=== PATIENT | male | born 1940 | race Caucasian/White ===

== ENCOUNTER 2016-09-24 15:11 | Inpatient (IN) | payer MEDICARE ==
[~2016-09-24] VITALS: Ht 175.3 cm; Wt 65.3 kg
[2016-09-24 15:21] VITALS: BP 136/82; PULSE 76; RESP 14; O2SAT 98
--- NOTE | 2016-09-24 15:44 | ED.REPORT ---
HPI-General Illness Date of Service Sep 24, 2016 ED Provider: Fabian Hua MD The patient is a 75 year old male with an unknown history who was brought to the emergency department after he tried to go into someone else's home. It was reported that the patient drove to a house that was not his and entered the home. The patient states he went there because he was lost on a road and needed someone to help him. The patient has a box of his medications with him that include: lithium, clotrimazole, and tamsulosin. The patient states he falls all the time because he is not steady. He lives alone. It is difficult to obtain history from the patient due to his mental status. He is not oriented to place or time. He denies any past medical history and does not know why he takes lithium. He denies suicidal or homicidal ideation. He denies fevers or chills. History is extremely limited due to the patient's confusion. Nursing Notes Stated Complaint: CONFUSION/ MENTAL HEALTH EVAL. Chief Complaint: Psychiatric Complaint Nursing Notes Reviewed: Yes Allergies: Coded Allergies: hydrocodone (Verified Allergy, Unknown, 09/24/16) General Time Seen by MD: 15:36 Chief Complaint Altered mental status Hx Obtained From: Patient (very limited) Unable to Obtain Hx: Patient condition, Mental status Arrived By: Walk-in Sudden in Onset?: No Onset Occurred: Onset unknown Symptom Duration: Duration unknown Past Medical History Past Medical History Notes: Nathaniel (son): , Past Medical History None Social History Other Social History: Good social support Ambulatory Status Independent Unable to Obtain History Past medical history, Past surgical history, Family history, Smoking history, Social history, Occupation Review of Systems Unable to Obtain ROS Patient condition, Mental status Full Review of Systems Neurologic: Reports: Confusion Psychiatric: Reports: Change mental status Physical Exam Vital Signs Vital Signs Date Time Temp Pulse Resp B/P Pulse Ox O2 Delivery O2 Flow Rate FiO2 09/24/16 15:21 36.6 76 14 136/82 98 Initial VS: Reviewed Head / Eyes: Atraumatic, Normocephalic, PERRL ENT: Mucous membranes moist, Conjunctiva normal, No scleral icterus Neck: Supple, Non-tender, Full range of motion Respiratory: Breath sounds normal, Clear to auscultation, No respiratory distress Cardiovascular: Regular rate & rhythm, Heart sounds normal, Intact distal pulses Abdomen / GI: Soft, Non-tender, No guarding, No rebound, No distention Lymphatic: No lymphadenopathy Extremities: Vascular intact, Neuro intact, No swelling, No tenderness Skin: Warm, Dry, No cyanosis General/Constitutional: Awake Alertness: Positive: Confused, Disoriented No obvious signs of trauma. Mental Status: Positive: Confused, Disoriented to place, Disoriented to time No lateralizing symptoms. Interpretation & Diagnostics Lab Results Interpretation Result Diagram: 09/24/16 1609 09/24/16 1609 Test 09/24/16 16:09 09/24/16 16:47 White Blood Count 7.5th/mm3 (3.8-10.1) Red Blood Count 4.50mil/mm3 (4.40-5.80) Hemoglobin 15.1g/dL (13.8-17.2) Hematocrit 45.9% (41.0-50.0) Mean Corpuscular Volume 102.0fL (81-100) Mean Corpuscular Hemoglobin 33.6pg (27.0-35.0) Mean Corpuscular Hemoglobin Concent 32.9% (32.0-37.0) Red Cell Distribution Width 13.0% (12.3-15.4) Platelet Count 231bil/L (150-400) Neutrophils (%) (Auto) 62.7% (40-74) Lymphocytes (%) (Auto) 21.6% (14-46) Monocytes (%) (Auto) 9.4% (4-12) Eosinophils (%) (Auto) 5.3% (0-5) Basophils (%) (Auto) 0.9% (0-3) Sodium Level 140mEq/L (134-144) Potassium Level 3.8mEq/L (3.5-5.2) Chloride Level 104mEq/L (97-108) Carbon Dioxide Level 22mmol/L (18-29) Blood Urea Nitrogen 16mg/dL (8-27) Creatinine 1.41mg/dL (0.76-1.27) Estimat Glomerular Filtration Rate 52mL/min (>59) Glucose Level 112mg/dL (60-99) Calcium Level 10.8mg/dL (8.5-10.1) Magnesium Level 2.5mg/dL (1.6-2.6) Total Bilirubin 0.6mg/dL (0.0-1.2) Aspartate Amino Transf (AST/SGOT) 20U/L (0-50) Alanine Aminotransferase (ALT/SGPT) 15U/L (0-44) Alkaline Phosphatase 75U/L (25-160) Total Protein 7.1g/dL (6.4-8.4) Albumin 4.1g/dL (3.4-5.0) Salicylates Level < 3.0ug/mL (30-250) Acetaminophen Level < 15.0ug/mL Rx (10-25) [place] Level 0.9mEq/L (0.5-1.5) Alcohols < 10mg/dL (0-10) Lactic Acid Level 2.2mmol/L (0.4-2.0) ECG Interpretation ECG Interpretation: Sinus rhythm with a rate of 63 Normal axis Normal intervals No ST segment changes No T wave abnormalities No prior EKGs available for comparison Time: 16:09 Interpreted by: ED physician X-Ray Chest Interpretation Chest Xray Interpretation: IMPRESSION: No acute process. Dictated by: Sneha Aaron M.D. on 09/24/2016 at 17:06 Interpretation / Wet Read by: Interpret - Radiologist CT Head Interpretation IMPRESSION: No acute intracranial abnormality. Dictated by: Sneha Aaron M.D. on 09/24/2016 at 16:21 Study: Head CT no contrast Interpretation / Wet Read by: Interpret - Radiologist Re-Eval/Medical Decision Med Decision/Clinical Course The patient is a 75 year old male with an unknown history who was brought to the emergency department after he tried to go into someone else's home. It was reported that the patient drove to a house that was not his and entered the home. The patient states he went there because he was lost on a road and needed someone to help him. The patient has a box of his medications with him that include: lithium, clotrimazole, and tamsulosin. The patient states he falls all the time because he is not steady. He lives alone. It is difficult to obtain history from the patient due to his mental status. He is not oriented to place or time. He denies any past medical history and does not know why he takes lithium. He denies suicidal or homicidal ideation. He denies fevers or chills. History is extremely limited due to the patient's confusion. Upon arrival the patient is afebrile, hemodynamically stable with examination as above. The patient states that he was in [facility] recently so 3 hours of attempts to obtain records from [place] were unsuccessful. LABS: CBC unremarkable except for elevated MCV of 102 BUN 16, creatinine 1.41, no sig electrolyte abnormalities, LFTs WNL [place] within therapeutic range, Tylenol, salicylates, and alcohol negative. Head CT negative CXR: Obtained, reviewed and interpreted by myself shows no evidence of infiltrates, effusions or pneumothorax. Cardiac and mediastinal silhouette normal. No bony or soft tissue abnormalities. EKG was obtained and interpreted by myself as documented above. The patient has significant alteration of mental status. We considered several causes of the alteration of mental status. We considered major head trauma, intracranial hemorrhage, subdural hematoma, epidural hematoma, brain tumor, cerebral mass lesion, cerebral contusion or stroke. For that reason, we obtained a CT of the head which showed no bleeding or brain abnormalities. We considered electrolyte or metabolic abnormality including hepatic encephalopathy , hyponatremia, acidosis, hypokalemia, hyperkalemia, hyperglycemia, hypoglycemia , and acute renal failure. For that reason, we obtained a bedside glucose test and a metabolic panel which did not show abnormalities that explain the alteration of mental status. We considered infectious etiologies, but the patient has no fever, and the lab tests are not compatible. In addition, there is no evidence of cellulitis, pneumonia, or intra-abdominal infection. We considered toxicity of ethanol or drugs as an etiology of the alteration of mental status and we sent an ethanol concentration. The etiology of the alteration of mental status remained unclear at this point. I was able to contact the patient's son (Nathaniel) though he was unable to provide much if any inside the patient's condition today. He states that the patient has no significant past medical or psychiatric history in that he does not know why he takes lithium. He states that his father is usually not confused and that this is not his father's baseline at all. That being said he lives in [place] and states that he has not seen his father in over 2 years. Despite extensive workup I am at this time unable to explain the patient's presentation today. He is clearly not safe for discharge and requires admission for further workup as well as planning for safe discharge. No signs of an acute organic illness would explain his presentation today. Urine drug screen/urinalysis is pending at the time of writing this note. Patient was discussed with admitting hospitalist and transferred in stable condition. Source of Hx: Family Time of Eval: 15:59 Re-Evaluation/Progress Note: Spoke with the patient's son. He has not talked to the patient in about 2 weeks and has not seen him in about 2 years. The patient was living in a month-month hotel and left the hotel last week. He spent 2 days in a hospital but the son does not know which one. The patient has no known past medical history. He has been on lithium for 35 years but his son does not know why. His son states the patient had a "cerebral embolism" 2 years ago. The patient's mental state is not normal for him. Consultation #1: Consulted With: woodworker helper Call Returned at: 17:24 Note: Discussed the patient's case with the ED social scientist. Consultation #2: Consulted With: Hospitalist Requested Call at: 17:37 Upholstery Technician: Will see patient, Agrees with eval, Agrees with plan, Accepts admit Counseled Regarding: Diagnosis, Lab results, Need for admission Discharge & Departure Primary Impression: Altered mental status Altered mental status type: unspecified Qualified Code: R41.82 - Altered mental status, unspecified Additional Impressions: [place] use Confusion and disorientation Disposition: ADMITTED TO HOSPITAL Discharge Condition All VS Reviewed: Yes Condition: Stable Scribe Attestation Portions of this note were transcribed by Tori Preston. I, Dr. Hua personally performed the history, physical exam and medical decision-making; I reviewed and confirmed the accuracy of the information in the transcribed note. Signed by: Joanna Frank, 09/24/2016 at 1800. Fabian Hua MD Sep 24, 2016 15:44 Tori Preston Sep 24, 2016 15:52
[2016-09-24] MEDS ORDERED: 0.9% Sodium Chloride 1,000 ML IV ONE (15:52)
--- NOTE | 2016-09-24 16:23 | DRSVH ---
PROCEDURE: CT BRAIN WITHOUT CONTRAST ([id number]) INDICATIONS: ams TECHNIQUE: Noncontrast 4.5 mm thick angled axial sections acquired from the foramen magnum to the vertex, with c oronal reformats. COMPARISON: None. FINDINGS: Image quality: Excellent. CSF spaces: Basal cisterns are patent. No extra-axial fluid collections. The ventricles are symmet jose in size and shape. Brain: No intracranial bleeds or masses. There is cerebral volume loss for age, with resultant vent ricular and sulcal prominence. There are periventricular and deep white matter chronic small vessel ischemic changes. There is intracranial internal carotid artery atherosclerosis. Skull and face: Calvarium and visualized facial bones appear intact, without suspicious lesions. Sinuses: Visualized sinuses and mastoids are clear. IMPRESSION: No acute intracranial abnormality. Dictated by: Sneha Aaron M.D. on 09/24/2016 at 16:21 Approved by: Sneha Aaron M.D. on 09/24/2016 at 16:21
[2016-09-24 16:34] LABS: BASOPHILS % (AUTO) 0.9 % (0-3); EOSINOPHILS % (AUTO) 5.3 % (0-5); MONOCYTES % (AUTO) 9.4 % (4-12); Mean Corpuscular Hemoglobin 33.6 pg (27.0-35.0); NEUTROPHILS % (AUTO) 62.7 % (40-74); Platelet Count 231 bil/L (150-400)
[2016-09-24 16:59] LABS: Magnesium 2.5 mg/dL (1.6-2.6)
--- NOTE | 2016-09-24 17:10 | DRSVH ---
PROCEDURE: X-RAY CHEST ONE VIEW, PORTABLE ([id number]) INDICATIONS: ALTERED MENTAL STATUS TECHNIQUE: One view of the chest was acquired. COMPARISON: None. FINDINGS: Surgical changes and devices: None. Lungs and pleura: No pleural effusions or pneumothorax. Lungs are clear. Mediastinum: Mediastinal contours appear normal. Heart size is normal. Bones and chest wall: No suspicious bony lesions. Overlying soft tissues appear unremarkable. IMPRESSION: No acute process. Dictated by: Sneha Aaron M.D. on 09/24/2016 at 17:06 Approved by: Sneha Aaron M.D. on 09/24/2016 at 17:07
[2016-09-24] MEDS ORDERED: Alum-Mag Hydrox-Simeth 30 mL Suspension PO PRN (17:55)
[2016-09-24] MEDS ORDERED: Ondansetron 2 mg/mL 2 mL Inj IVPUSH PRN (17:55)
[2016-09-24 18:41] VITALS: BP 142/84; PULSE 75; RESP 16; O2SAT 96
[2016-09-24 19:24] VITALS: BP 160/86; PULSE 68; RESP 17; O2SAT 99
[2016-09-24 20:49] VITALS: BP 160/86; PULSE 68; RESP 17; O2SAT 99
--- NOTE | 2016-09-24 21:35 | PCM.HPMED ---
Subjective Date of Service Sep 24, 2016 Primary Provider: Admitting Physician: Karen Watters MD Primary Care Physician: Kar Attending Physician: Karen Watters MD Chief Complaint: WANdering outside wrong home HISTORY was OBTAINED FROM [facility] NOTES / [facility] notes, POOR HISTORIAN History of present illness 75-year-old male, (his adult children have not spoken to him for 2 weeks, they deny dementia), was found attempting to enter the house that was not his. He indicated that he was lost after driving and attempting to get directions. In the ER, his medication box included lithium clotrimazole and tamsulosin. Chronic falling due to lack of steadiness, very confused in the ER but aware enough to know that he was at [facility] 09/21/15 and had a urolift(ie MRI would be prohibitive, placed 10/2015-card in wallet) pt indicates ongoing vomiting abdominal pain and diarrhea and constipation today - he had the same complaints as when at [facility] BUS 480cc, unable to void at ER, lipase 91, in 09/21/15 ER for vomiting/constipation for a week w/ unremarkable CT a/p for GI source, noted to be a poor historian at that time as well, and discharged w/ instructions to follow up w/ urologist. He is unclear if he has had pancreatitis , distant EtOH hx, believes he had cholecystectomy but abdominal scars are lacking. perseverates on failed urolift/bph symptoms are unclear In the ER. systolic Blood pressure 160, 1 L normal saline Review of Systems // SOCIAL HX // FAMILY HX unable to obtain due to confusion MEDICATIONS lithium clotrimazole and tamsulosin on his person per [facility] amlodipine stool / laxatives flonase gabapentin lith 300 bid omeprazole ditropan/flomax PMHx BPH s/p urolift, incomplete bladder emptying bipolar c spine surgery PE Exam on admission on room air NAD A and O x 3 mood affect WNL NC/AT no icterus no injected eyes EOMI PERRL /no pharyngeal lesions/ no oral lesions / hearing intact / dry mucosa Supple neck CTAB equal chest rise / no accessory muscle use / speaks in full sentences / no rrw RRR S1 S2 / no mrg / 2+ radial pulses Soft nd + BS no hepatosplenomegaly, PAIN TO EPIGASTRIC AND SUPRAPUBIC PALPATION No edema no cyanosis no ecchymosis of lower extremities No rash / no jaundice BRISENO, slow to respond Strength grossly intact of bilateral upper and lower limbs symmetrical facies Imaging CXR neg acute process head Ct negative acute findings EKG SR63 Labs Trop normal / BNP normal ammonia / lipid pending UA pending LFT normal Lactic acid 2.2 Creatinine 1.4 Calcium 10.8 [place]/alcohol/Tylenol/salicylate were normal Active issues and reason for admission new onset confusion, but some accurate history, treating as pancreatitis and incomplete bladder emptying --not voided, pending i/o and UA to r/o UTI --urolift BPH device prohibits MRI to evaluate CVA, statin lipid panel asa permissive htn for now --pending vit d tsh --neg tox eval in ER 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, better from [employer](Cr )1.6 --monitor --cont home meds incomplete bladder emptying, BPH, prior urolife, consider urologist if unable to pass wang tonight --trial wang question of pancreatitis hx and pancreatitis, w/ ongoing vomiting --npo banana bag --indicates cholecystectomy hx - i cannot find lap scars other than suprapubic though --distant etoh hx --no MRCP - due to urolift, consider GI for further imaging recommendations, CT [facility] is in the paperchart hypercalcemia --hx of lithium, pending PTH pulmonary embolism hx --embolectomy procedure Chronic issues known prior to admission, present on admission bipolar --chronic lithium BPH Diet npo DVT prophylaxis heparin scd ambulate, consider PT Code full Disposition inpt status Nathaniel (son): , Assessment and plan were discussed with patient Allergies Coded Allergies: hydrocodone (Verified Allergy, Unknown, 09/24/16) Exam Vital Signs Vital Sign - Last Date Time Temp Pulse Resp B/P Pulse Ox O2 Delivery O2 Flow Rate FiO2 09/24/16 20:49 68 17 160/86 99 Room Air 09/24/16 19:24 36.4 Lab and Diagnostics Result Diagram: 09/24/16 1609 09/24/16 1601 Karen Watters MD Sep 24, 2016 21:35
[2016-09-24] MEDS ORDERED: Thiamine Inj 100 MG, Folic Acid Inj 1 MG, Magnesium Sulfate 50% Inj 2 GM, Multivitamins... IV ONE ×5 (21:50)
[2016-09-24 21:57] LABS: TROPONIN T 0.01 ug/L (0.0-0.011)
[2016-09-24] MEDS ORDERED: Lidocaine 2% 5 mL Urojet Topical Jelly Syringe MUC_MEMBRM ONE (22:30)
[2016-09-24] MEDS ORDERED: Lidocaine 2% 6mL Topical Jelly MUC_MEMBRM ONE (22:55)
[2016-09-24] MEDS: Heparin 5,000 Unit/mL Inj SUBQ SCH (23:54)
[2016-09-25 00:45] VITALS: BP 156/85; PULSE 59; RESP 16; O2SAT 98
[2016-09-25 00:53] LABS: APPEARANCE,URINE CLEAR (CLEAR,HAZY); COLOR,URINE STRAW (YELLOW); OCCULT BLOOD,URINE NEGATIVE (NEGATIVE); UROBILINOGEN,URINE NORMAL (NORMAL)
[2016-09-25 05:00] VITALS: BP 139/81; PULSE 69; RESP 16; O2SAT 97
--- NOTE | 2016-09-25 06:05 | NUR ---
Admit Admitted to 1011 from ED via stretcher. Able to slide self into bed. IV SL. RA w/o c/o SOB. Initially denied c/o pain but later c/o abdominal pain and urinary retention. Able to void 800ml with relief of pain but PVR >500ml. Feldman cath inserted per MD orders. Alert and confused providing different stories r/t events leading up to admit. Unreliable historian at this time regarding health hx. No family available to ask about health hx. Very unsteady gait noted. 1:1 for safety. Unable to orient to call light use at this time. Personal belongings at bedside per patient request.
--- NOTE | 2016-09-25 09:29 | DRSVH ---
PROCEDURE: US BILATERAL DUPLEX DOPPLER IMAGING OF THE CAROTIDS ([id number]) INDICATIONS: altered mental status TECHNIQUE: Color and pulse Doppler interrogation was performed of both carotid systems, with image documentation and velocity measurements. COMPARISON: None. FINDINGS: All stenosis calculations are based on NASCET criteria. Right side: Common Carotid Artery(Distal) PSV: 50.50 cm/s Internal Carotid Artery PSV- Proximal: 52.70 cm/s Mid-lon.40 cm/s Distal: 55 cm/s EDV - Proximal: 17.90 cm/s Mid-lon.90 cm/s Distal: 14.60 cm/s External Carotid Artery(Proximal) PSV: 80.80 cm/s ICA/CCA PSV ratio: 1.1 Sumner scale imaging description: There is moderate calcified plaque in the carotid bifurcation extendi ng into the bulb. Percent internal carotid artery stenosis: Less than 50%. Vertebral artery: Flow direction is antegrade. Left side: Brachial blood pressure: 160/86 mm Hg. Common Carotid Artery(Distal) PSV: 78.30 cm/s Internal Carotid Artery PSV - Proximal: 50.30 cm/s Mid-lon.80 cm/s, 65 cm/s Distal: 54.10 cm/s EDV - Proximal: 16.10 cm/s Mid-lon.60 cm/s, 18 cm/s Distal: 16.10 cm/s External Carotid Artery(Proximal) PSV: 59.80 cm/s ICA/CCA PSV ratio: 0.8 Sumner scale imaging description: There is [id number] calcified plaque at the carotid bifurcation extending into the carotid bulb. Percent internal carotid artery stenosis: Less than 50%. Vertebral artery: Flow direction is antegrade. IMPRESSION: 1. No evidence hemodynamically significant stenosis in the carotid bulbs. Dictated by: Geo Ch M.D. on 09/25/2016 at 9:21 Approved by: Geo Ch M.D. on 09/25/2016 at 9:23
[2016-09-25] MEDS ORDERED: 0.9% Sodium Chloride 250 ML ONE (10:11)
[2016-09-25] MEDS: Famotidine Inj 20 MG in IV Premix 1 EACH IV SCH ×2 (10:40→20:17)
[2016-09-25] MEDS: Senna-Docusate 8.6-50 mg Tablet PO SCH (10:40)
[2016-09-25] MEDS: Heparin 5,000 Unit/mL Inj SUBQ SCH ×2 (10:41→16:19)
[2016-09-25 10:46] VITALS: BP 177/84; PULSE 67; RESP 18; O2SAT 98
--- NOTE | 2016-09-25 12:58 | PCM.PNMED ---
Subjective Date of Service Sep 25, 2016 Subjective No acute complaints patient confused and with flat affect. No overnight events. Denies chest pain or shortness of breath or fever. Exam Vital Signs Vital Sign - Last Date Time Temp Pulse Resp B/P Pulse Ox O2 Delivery O2 Flow Rate FiO2 09/25/16 05:00 36.9 69 16 139/81 97 Room Air Intake and Output 09/24/16 09/24/16 09/25/16 Cumulative From/Thru 15:00 23:00 07:00 09/24/16 15:21 - 09/25/16 06:37 Intake Total 1000 ml 1315 ml 2315 ml Output Total 2375 ml 2375 ml Balance 1000 ml -1060 ml -60 ml Intake Oral 300 ml 300 ml IV Total 1000 ml 1015 ml 2015 ml Output Urine Total 2375 ml 2375 ml # Bowel Movements 0 0 Exam on room air NAD A and O x 3 mood affect WNL NC/AT no icterus no injected eyes EOMI PERRL /no pharyngeal lesions/ no oral lesions / hearing intact / dry mucosa Supple neck CTAB equal chest rise / no accessory muscle use / speaks in full sentences / no rrw RRR S1 S2 / no mrg / 2+ radial pulses Soft nd + BS no hepatosplenomegaly, mild tenderness in the lower abdominal superpubic region No edema no cyanosis no ecchymosis of lower extremities No rash / no jaundice Flat affect, depressed mood IVs and Medications Medications Reviewed: Medications were reviewed in detail Lab and Diagnostics Result Diagram: 09/24/16 1609 09/25/16 8545 Assessment & Plan Active issues and reason for admission new onset confusion, treating as acute pancreatitis and incomplete bladder emptying --not voided, pending i/o and UA to r/o UTI --urolift BPH device prohibits MRI to evaluate CVA, statin lipid panel asa permissive htn for now --pending vit d tsh --neg tox eval in ER 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 is in the paperchart hypercalcemia --hx of lithium, pending PTH pulmonary embolism hx --embolectomy procedure Chronic issues known prior to admission, present on admission bipolar --chronic lithium BPH Diet: Dysphagia mechanical DVT prophylaxis heparin scd ambulate, Appreciate social service director help, patient currently homeless since losing was not at a temporary motel. Some available and will assist in placement over next couple days. Code full Disposition inpt status Nathaniel (son): , Pain Evaluation: Adequate Pain Control GI Prophylaxis: H2 jad VTE Prophylaxis: Sub-Q Heparin (Unfractionated) Resuscitation Status: CPR: Attempt Resuscitation Time spent 35 minutes spent with evaluation and management Attending Statement Disposition: Pending clinical progress and placement, likely 2 more days Khurram Morales DO Sep 25, 2016 07:33
[2016-09-25] MEDS ORDERED: hydrALAZINE 20 mg/mL Inj IV PRN (13:00)
[2016-09-25 13:32] LABS: BASOPHILS % (AUTO) 1.2 % (0-3); EOSINOPHILS % (AUTO) 5.8 % (0-5); MONOCYTES % (AUTO) 8.9 % (4-12); Mean Corpuscular Hemoglobin 33.3 pg (27.0-35.0); Mean Corpuscular Volume 103.9 fL (81-100); NEUTROPHILS % (AUTO) 60.7 % (40-74); Platelet Count 222 bil/L (150-400)
--- NOTE | 2016-09-25 13:41 | NUR ---
Evaluation completed. Please go to "Notes" then click on "Assessments and Notes" (bottom left corner of screen). Then select appropriate discipline tab on top of screen.
--- NOTE | 2016-09-25 14:37 | NUR ---
PTEvaluation completed. Please go to "Notes" then click on "Assessments and Notes" (bottom left corner of screen). Then select appropriate discipline tab on top of screen.
--- NOTE | 2016-09-25 16:05 | NUR ---
Social Work: Brief Note Database Operator attempted to complete Initial assessment with patient, but patient was with physical therapy. SW spoke with patient's son, Nathaniel [phone](c) [phone], who lives in [facility]. Mr. Armstrong stated that the patient lived at an extended stay hotel prior to hospitalization and the patient was traveling to [place] and was intending to stay at an extended stay hotel. Patient son stated that the patient's PCP is Dr. Tre Obrien [phone] in [facility]. SW will attempt to complete initial assessment at a later date. SW will continue to follow patient and assist with discharge planning. Suzy Benton, ERVIN, ACM
--- NOTE | 2016-09-25 16:44 | NUR ---
Behavior Pt soft-spoken and calm. Some rambling and incoherent statements in his speech today. Pt is oriented to self; confused about place. Could not tell me what year it was, but did correctly identify the month as September. States he was driving [place] [address] [place] and then became lost. He went up to a nice-looking house and explained he was lost and asked for assistance. The residents at that home brought him to [facility]. Pt also mentioned some people where trying to "take advantage of him" and indicated that he would get revenge. Pt's son, Nathaniel, called this a.m. He lives in [facility] and states his father's confused behavior is new. We have Nathaniel's phone numbers on the front of the pt's chart. Pt does not know if there is any history of dementia in his family. Care continues.
--- NOTE | 2016-09-25 17:13 | NUR ---
Home medications Pt brought 3 home medications with him and NOC shift RN placed them in pt's med drawer. I took the meds to pharmacy and they were place in a secured bag. Medications will remain secured in the pharmacy until pt discharge.
--- NOTE | 2016-09-25 18:25 | DRSVH ---
[facility] [address] [place] [address] Echocardiogram Report Name: MAXIM CALVIN WStudy Date: Height: 69 in Hospital Exam Location: [facility] Weight: 151 lb Gender: Male BSA: 1.8 m2 : 1940 Age: 75 yrs BP: 139/81 mmHg Reason For Study: TIA Ordering Physician: Performed By: [facility] Interpretation Summary Normal sinus rhythm. Normal LV size, wall thickness, wall motion and LV systolic function. EF is 60-65%. Stage I diastolic dysfunction. No significant valvular abnormalities. Normal chamber sizes. No source of embolism identified. No prior study available for comparison. Procedure: A two-dimensional transthoracic echocardiogram with color flow and Doppler was performed. The study quality was technically good. There is no prior echocardiogram noted for this patient. The patient was in normal sinus rhythm during the exam. Left Ventricle: The left ventricle is normal in size, wall thickness, and systolic function without any focal wall motion abnormalities. The ejection fraction is estimated to be 60-65%. The E/A ratio is reversed, suggesting impaired early relaxation of the left ventricle or a reduced preload state. Right Ventricle: The right ventricle is normal in size, thickness and function. Atria: The left atrial size is normal. Right atrial size is normal. The interatrial septum is intact with no evidence for an atrial septal defect. Mitral Valve: The mitral valve leaflets appear borderline thickened, but open well. There is no mitral regurgitation noted. Aortic Valve: The aortic valve is trileaflet. The aortic valve opens well. There is mild aortic valve sclerosis. No aortic regurgitation is present. Tricuspid Valve: The tricuspid valve is normal. No tricuspid regurgitation. Pulmonic Valve: The pulmonic valve is normal in structure and function. There is no pulmonic valvular regurgitation. Great Vessels: The aortic root is mildly dilated. The ascending aorta is at the upper limits of normal in size. The IVC is of normal diameter and collapses greater than 50% with a sniff. This suggests a low right atrial pressure of 3 mm Hg. Pericardium/ Pleura There is no pericardial effusion. There is no pleural effusion. MMode/2D Measurements & Calculations LVIDd LA dimension: 3.9 cm RA long axis: 3.9 cm Ao root diam : 5.0 cm LVIDs LA A2 area: 20.2 cm RA area: 9.9 cm Aortic Jxn: 2.6 cm : 3.2 cm LA A4 area: 15.7 cm RA vol: 21.2 ml asc Aorta Diam FS: 36.7 % LA length (vol) RA : 11.6 ml/m IVSd RVDd major: 3.7 cm Ao Arch Diam (Prox : 0.9cm LA vol: 57.0 ml Trans): 2.5 cm LVPWd LA vol index : 1.0 cm : 31.1 ml/m2 MAGGIE (plan) LV vieira. diameter/BSA LV sys. diameter/BSA RVD1 (basal) : 3.1 cm2 (cm/m^2): 2.7 (cm/m^2): 1.7 Doppler Measurements & Calculations Ao V2 max MV E max david MV E/A: 0.74 PA V2 max : 125.4 cm/sec : 60.0 cm/sec Med Peak E' David : 99.1 cm/sec Ao max PG MV A max david PA mean PG : 6.3 mmHg : 81.5 cm/sec E/E' med: 10.8 Ao mean PG MV P1/2t: 74.3 msec Lat Peak E' David PA Accel Time : 3.3 mmHg : 0.12 sec E/E' lat: 6.9 E/e' average: 8.8 MV A dur: 0.13 sec MV dec time MV P1/2t max david Ao V2 mean PA V2 mean : 0.25 sec : 84.9 cm/sec : 66.3 cm/sec MVA(P1/2monica): 3.0 cm2 [facility] VTI: 25.6 cm Reading Physician:06:24 PM
[2016-09-25 19:36] VITALS: BP 154/76; PULSE 58; RESP 18; O2SAT 98
[2016-09-26] MEDS: Heparin 5,000 Unit/mL Inj SUBQ SCH ×3 (00:17→17:22)
--- NOTE | 2016-09-26 01:38 | NUR ---
Mentation At start of shift, pt answering questions appropriately, but would also start talking about other things and not make sense. Pt thought it was morning and was wanting to go home. Stated he was going to put his clothes on and leave. "They've poked me and done this test and that test and nothing." Pt then calm again and no longer talking about leaving. Sitter outside of room. Call light in reach. Has been pleasant. Care continues.
[2016-09-26 05:20] VITALS: BP 153/79; PULSE 50; RESP 16; O2SAT 98
[2016-09-26] MEDS ORDERED: LITH300T2 PO (07:29)
[2016-09-26] MEDS ORDERED: CLOT10TR BUCCAL (07:30)
[2016-09-26] MEDS ORDERED: TAMS0.4C29 PO (07:30)
[2016-09-26 09:08] LABS: Free Thyroxine Index 2.4 (1.2-4.9); Thyroxine (T4) 7.2 ug/dL (4.5-12.0)
[2016-09-26] MEDS: Famotidine Inj 20 MG in IV Premix 1 EACH IV SCH ×2 (10:24→20:28)
[2016-09-26] MEDS: Senna-Docusate 8.6-50 mg Tablet PO SCH (10:25)
[2016-09-26 10:55] VITALS: BP 162/83; PULSE 55; RESP 17; O2SAT 98
--- NOTE | 2016-09-26 12:59 | PCM.PNMED ---
Subjective Date of Service Sep 26, 2016 Subjective pt seen at bedside ,denies sob/cp/f - after discussoion ,pt may consider SNF - voiding trial today. Exam Vital Signs Vital Sign - Last Date Time Temp Pulse Resp B/P Pulse Ox O2 Delivery O2 Flow Rate FiO2 09/26/16 10:55 36.6 55 17 162/83 98 Room Air Intake and Output 09/25/16 09/25/16 09/26/16 Cumulative From/Thru 15:00 23:00 07:00 09/24/16 15:21 - 09/26/16 05:22 Intake Total 1243 ml 100 ml 3658 ml Output Total 1800 ml 1100 ml 5275 ml Balance -557 ml -1000 ml -1617 ml Intake Oral 1040 ml 100 ml 1440 ml IV Total 203 ml 2218 ml Output Urine Total 1800 ml 1100 ml 5275 ml # Bowel Movements 0 Exam on room air NAD A and O x 3 mood affect WNL NC/AT no icterus no injected eyes EOMI PERRL /no pharyngeal lesions/ no oral lesions / hearing intact / dry mucosa Supple neck CTAB equal chest rise / no accessory muscle use / speaks in full sentences / no rrw RRR S1 S2 / no mrg / 2+ radial pulses Soft nd + BS no hepatosplenomegaly, mild tenderness in the lower abdominal superpubic region No edema no cyanosis no ecchymosis of lower extremities No rash / no jaundice Flat affect, depressed mood IVs and Medications Medications Reviewed: Medications were reviewed in detail Lab and Diagnostics Result Diagram: 09/25/16 0455 09/26/16 0715 Assessment & Plan new onset confusion, treating as acute pancreatitis and incomplete bladder emptying --not voided, neg ua - voiding trial today --urolift BPH device prohibits MRI to evaluate CVA, statin lipid panel asa permissive htn for now --pending vit d, nl tsh --neg tox eval in ER possible CKD from lithium use, better from [facility](Cr )1.6-->1.4 09/26 --monitor --cont home meds -- If worsening consider renal Ultrasound incomplete bladder emptying, BPH, prior urolife, may need txfr to snf wiht wang if no success with voiding trial today question of pancreatitis hx and pancreatitis (mild lipase elev), w/ resolved vomiting -- Status post banana bag --indicates cholecystectomy hx - i cannot find lap scars other than suprapubic though --distant etoh hx --no MRCP - due to urolift, consider GI for further imaging recommendations, CT [facility] is in the paperchart hypercalcemia --hx of lithium, pending PTH pulmonary embolism hx --embolectomy procedure Chronic issues known prior to admission, present on admission bipolar --chronic lithium BPH Diet: Dysphagia mechanical DVT prophylaxis heparin scd ambulate, Appreciate social contact worker help, patient currently homeless since losing was not at a temporary motel. PT rec snf, to d/w pt/son Code full Disposition inpt status Nathaniel (son): , GI Prophylaxis: H2 jad VTE Prophylaxis: Sub-Q Heparin (Unfractionated) Resuscitation Status: CPR: Attempt Resuscitation Khurram Morales DO Sep 26, 2016 12:59 Khurram Morales DO Sep 26, 2016 12:59
--- NOTE | 2016-09-26 13:07 | NUR ---
Social Work: Initial Assessment Data & Assessment: See initial assessment. Pt is a 75 y/o male who was admitted on 09/24/16 for AMS per H&P. Pt's insurance is [employer] and PCP is Tre Obrien MD [phone]. EMR Reviewed. Pt's readmission score is 3-high risk. SW met with pt at bedside and spoke with son Nathaniel [phone] to discuss discharge planning, SW role explained and initial assessment complete. Pt resided in an extended stay hotels prior to admission where pt was independent with basic ADLs. Pt does drive and has a cane but only use it sometimes. Pt has no HH or SNF history. Pt has not completed DPOA/ advanced directive. SW provided patient's son with the information via phone and provided patient with copy of DPOA. Pt has no manager terminal care or VA benefits. SW notified patient and patient's son that PT was recommending SNF with rehabilitation for strengthening, balance, coordination, AD training, stair training and other treatment as necessary. SW provided patient and patient's son with a SNF list. They chose [facility] as first choice, [facility] as second choice and [facility] as third choice. SW gave all facilities access and faxed patient's face sheet. SW provided phone number and plan on white board in room and provided patient' son with her phone number. SW will continue to follow. Plan: Pt to likely discharge to SNF. Pt's family is supportive. SW will continue to follow. Efrain Benton LMSW, [place] Addendum: 09/26/16 at 1325 by EFRAIN BENTON Amended: Links added.
[2016-09-26 15:29] VITALS: BP 165/89; PULSE 57; RESP 18; O2SAT 98
--- NOTE | 2016-09-26 18:22 | NUR ---
Post void residual bladder scans Feldman catheter removed at 1050 hrs. Pt now voiding spontaneously without pain or problems. Post-void residual urine at 1400 hrs was 38 mL Post-void residual at 1710 hrs was 128 mL.
[2016-09-26 20:20] VITALS: BP 147/82; PULSE 55; RESP 16; O2SAT 98
[2016-09-27] MEDS: Heparin 5,000 Unit/mL Inj SUBQ SCH ×3 (01:02→16:27)
--- NOTE | 2016-09-27 03:23 | NUR ---
activity pt has been pleasant and cooperative with care. he is oriented to self and place but not time. pt does not use his call light before getting out of bed and he is unsteady on his feet. dennys alarm is on and frequent rounding. pt expresses eagerness to get up and walk in the hallways again today. care continues.
[2016-09-27 04:38] VITALS: BP 139/77; PULSE 50; RESP 16; O2SAT 99
[2016-09-27] MEDS: Senna-Docusate 8.6-50 mg Tablet PO SCH (08:30)
[2016-09-27 08:33] VITALS: BP 153/74; PULSE 48; RESP 16; O2SAT 99
[2016-09-27] MEDS: Famotidine Inj 20 MG in IV Premix 1 EACH IV SCH (08:38)
--- NOTE | 2016-09-27 10:14 | NUR ---
Jess can accept with to follow Updated TECHNICAL ADVISOR Addendum: 09/27/16 at 1056 by SAURABH VOGEL CM Sent text page to and asked for discharge to SNF as soon as possible. Updated TECHNICAL ADVISOR
--- NOTE | 2016-09-27 11:21 | PCM.DIMED ---
Discharge Instructions Date of Service Sep 27, 2016 Dates of Hospitalization Sep 24, 2016 at 18:23 Discharge Diagnosis Discharge Diagnosis encephalopathy, abdominal pain 2' constiaption Diet Heart Healthy Activity No restrictions Call your provider Other (abdominal pain or confusion) Patient Instructions Follow-up plan Patient needs a PCP. He is being discharged to SNF. Should be seen there in the next 5-10 days Sanjay Champion MD Sep 27, 2016 11:21
--- NOTE | 2016-09-27 11:26 | PCM.DC.MED ---
Discharge Summary Date of Service Sep 27, 2016 Dates of Hospitalization Date of Hospital Admission Sep 24, 2016 at 18:23 Date of Discharge: Sep 27, 2016 Providers: Admitting Physician: Karen Watters MD Primary Care Physician: Kar Attending Physician: Karen Watters MD Diagnosis at Time of Discharge Diagnosis at Time of Discharge encephalopathy, abdominal pain 2' constiaption Procedures XRay, CTs & MRIs CT 09/23 [facility] showed constipation/obstipation no pancreatitis Brief History 75-year-old homeless male who was seen in the ER and held for psych bed transferred to [facility] I believe for a psychiatric bed and instead admitted to medical floor for abdominal pain/possible pancreatitis based on slightly elevated lipase. Hospital Course 75-year-old homeless male sent from [facility] I believe for psychiatric bed initially. Was admitted for confusion and abdominal pain. Ammonia level elevated. new onset confusion, treating as acute pancreatitis and incomplete bladder emptying --not voided, neg ua - voiding trial today --urolift BPH device prohibits MRI to evaluate CVA, statin lipid panel asa permissive htn for now --pending vit d, nl tsh --neg tox eval in ER possible CKD from lithium use, [facility] )1.6-->1.4 09/26 --monitor --cont home meds -- If worsening consider renal Ultrasound incomplete bladder emptying, BPH, prior urolife, may need txfr to snf wiht wang if no success with voiding trial today question of pancreatitis hx and pancreatitis (mild lipase elev), w/ resolved vomiting -- Status post banana bag --indicates cholecystectomy hx - i cannot find lap scars other than suprapubic though --distant etoh hx --no MRCP - due to urolift, consider GI for further imaging recommendations, [facility] is in the paperchart hypercalcemia --hx of lithium, pending PTH pulmonary embolism hx --embolectomy procedure Chronic issues known prior to admission, present on admission bipolar --chronic lithium BPH Diet: Dysphagia mechanical DVT prophylaxis heparin scd ambulate, Appreciate social insurance administrator help, patient currently homeless since losing was not at a temporary motel. PT rec snf, to d/w pt/son Code full Disposition inpt status Nathaniel (son): , Exam Vital Signs (Last) Date Time Temp Pulse Resp B/P Pulse Ox O2 Delivery O2 Flow Rate FiO2 09/27/16 08:33 36.7 48 16 153/74 99 Room Air Test 09/24/16 16:09 09/24/16 16:47 09/25/16 00:48 09/25/16 04:55 Magnesium Level 2.5mg/dL (1.6-2.6) Total Bilirubin 0.6mg/dL (0.0-1.2) Aspartate Amino Transf (AST/SGOT) 20U/L (0-50) Alanine Aminotransferase (ALT/SGPT) 15U/L (0-44) Alkaline Phosphatase 75U/L (25-160) Troponin T 0.010ug/L (0.0-0.011) Pro-B-Type Natriuretic Peptide 87.38pg/mL (0-486) Total Protein 7.1g/dL (6.4-8.4) Albumin 4.1g/dL (3.4-5.0) Triglycerides Level 93mg/dL (0-149) Cholesterol Level 117mg/dL (100-199) LDL Cholesterol, Calculated 58.400mg/dL (0-99) VLDL Cholesterol 18.600mg/dL HDL Cholesterol 40mg/dL (>39) Cholesterol/HDL Ratio 2.93 (0.0-4.4) Lipase 84U/L (13-60) Salicylates Level < 3.0ug/mL (30-250) Acetaminophen Level < 15.0ug/mL Rx (10-25) Priddy Level 0.9mEq/L (0.5-1.5) Alcohols < 10mg/dL (0-10) Lactic Acid Level 2.2mmol/L (0.4-2.0) Urine Color Straw (YELLOW) Urine Appearance Clear (CLEAR,HAZY) Urine pH 7.0 (5.0-8.0) Urine Specific Andrew 1.005 (1.003-1.035) Urine Protein Negativemg/dL (NEG,TRACE) Urine Glucose (UA) Negativemg/dL (NEGATIVE) Urine Ketones Negativemg/dL (NEGATIVE) Urine Occult Blood Negative (NEGATIVE) Urine Nitrite Negative (NEGATIVE) Urine Bilirubin Negative (NEGATIVE) Urine Urobilinogen Normalmg/dL (NORMAL) Urine Leukocyte Esterase Negative (NEGATIVE) Urine RBC 0-2/hpf (0-2) Urine WBC 0-5/hpf (0-5) Urine Epithelial Cells Occasional/hpf (NONE-MOD) Urine Crystals None seen (NONE SEEN) Urine Bacteria None/hpf (NONE-FEW) Urine Hyaline Casts None/lpf (NONE) Urine Granular Casts None seen (NONE SEEN) Urine Waxy Casts None seen (NONE SEEN) Urine Red Blood Cell Casts None seen (NONE SEEN) Urine White Blood Cell Casts None seen (NONE SEEN) Urine Mucus None seen (None Seen) Urine Trichomonas None seen (NONE SEEN) Urine Yeast None (NONE SEEN) Urinalysis Comment None Urine Culture Reflexed Not indicated White Blood Count 6.6th/mm3 (3.8-10.1) Red Blood Count 4.36mil/mm3 (4.40-5.80) Hemoglobin 14.5g/dL (13.8-17.2) Hematocrit 45.3% (41.0-50.0) Mean Corpuscular Volume 103.9fL (81-100) Mean Corpuscular Hemoglobin 33.3pg (27.0-35.0) Mean Corpuscular Hemoglobin Concent 32.0% (32.0-37.0) Red Cell Distribution Width 13.1% (12.3-15.4) Platelet Count 222bil/L (150-400) Neutrophils (%) (Auto) 60.7% (40-74) Lymphocytes (%) (Auto) 23.2% (14-46) Monocytes (%) (Auto) 8.9% (4-12) Eosinophils (%) (Auto) 5.8% (0-5) Basophils (%) (Auto) 1.2% (0-3) Ammonia 71ug/dL (18-53) Thyroid Stimulating Hormone (TSH) 0.826uIU/mL (0.450-4.500) Free Thyroxine Index 2.4 (1.2-4.9) Thyroxine (T4) 7.2ug/dL (4.5-12.0) Triiodothyronine (T3) Uptake 33% (24-39) Test 09/27/16 07:41 Sodium Level 143mEq/L (134-144) Potassium Level 4.4mEq/L (3.5-5.2) Chloride Level 109mEq/L (97-108) Carbon Dioxide Level 20mmol/L (18-29) Blood Urea Nitrogen 9mg/dL (8-27) Creatinine 1.47mg/dL (0.76-1.27) Estimat Glomerular Filtration Rate 49mL/min (>59) Glucose Level 134mg/dL (60-99) Calcium Level 10.4mg/dL (8.5-10.1) Discharge Medications Discharge Medications Priddy Carbonate (Priddy Carbonate) 300 Mg Tablet 300 MG PO BID (Reported) Tamsulosin ER (Tamsulosin ER) 0.4 Mg Cap.er.24h 0.4 MG PO DAILY (Reported) Followup Plan Follow-up plan Patient needs a PCP. He is being discharged to SNF. Should be seen there in the next 5-10 days Discharge Diet: Heart Healthy Discharge Activity: No restrictions Sanjay Champion MD Sep 27, 2016 11:26
--- NOTE | 2016-09-27 11:38 | NUR ---
Behavior Pt has been cooperative with care for RN most of this morning; as shift progressed, the pt has had some times of aggitation and voiced concerns and dislike of MD that made rounds this morning at bedside, expressed verbally "I want to punch him in the f'ing face and you sold me out to the doctor. I had $13,000 dollars in my belongings with my clothes, [place] and want to leave, my car is 100 miles away from here." Pt stated he felt cold and wanted to get his pants on, assisted with his clothing put on. Notified motor bus driver of changes in behavior. Concerns for PO [place] given this morning, pt voiding urine but not a lot taken in PO. Encouraged food and water to which pt states, "not hungry and I eat only one meal per day." Will continue to monitor with frequent rounds.
--- NOTE | 2016-09-27 12:34 | NUR ---
Behavior Pt refusing meal tray at lunch time and refusing to let RN do noon vital signs. Pt states, "getting frustrated with the hold up and I am going to bring a lawsuit against the hospital for keeping me here. I think the mohit in the plaid shirt left to go find Darryl the one who brought me in here, he and my dad were in the [place] together and friends." When asked if Darryl was a family friend, pt stated no. Will continue to monitor with frequent rounds.
[2016-09-27 13:07] LABS: Vitamin D, 25-Hydroxy 44.6 ng/mL (30.0-100.0)
[2016-09-27 13:14] VITALS: BP 152/94; PULSE 86; RESP 17; O2SAT 98
--- NOTE | 2016-09-27 13:16 | NUR ---
Confusion Pt has become more agitated while in his room; harder to distract from leaving. Pt had belongings in his hand and ready to leave, material reprocessing associate called; pt states, "going to travel down a long, dark and cold road," confused about where he was, when asked do you know where you are, pt states, "I don't know." Lunch tray ordered for pt. Pt allowed RN to take vital signs with positive reassurance that we want to keep him safe, be safe with his care and want to make sure he is safe for discharge. Pt states, "I'm just so tired, I'm tired right now and want to sleep." RN convinced pt to take a nap in this safe place, where it is warm and he is looked after. Pt resting on his bed; will continue to monitor with frequent rounds.
--- NOTE | 2016-09-27 13:37 | NUR ---
SEVERO requested to assist with case. Pt came into ED for psychiatry complaint. Per staff climate scientist, pt is not alert and oriented. SW called [facility] and completed MIS check, pt has no hospitalization history and is not enrolled in any services. SEVERO discussed with MD and MD has placed psychiatry consult to see pt. SEVERO called up to [facility] and spoke with Claudia and provided her with update on order. SEVERO will continue to follow. MAIN Lobo
--- NOTE | 2016-09-27 13:37 | NUR ---
Bandon/UOP Spoke with primary RN Peggy who states large volume uop of 1800mls as of 1130 am. Bandon level done on Tuesday. Primary RN paging regarding ordering another Bandon level. Pt seems quite confused states "I have a long dark road to travel down." Quite concerned about his car. Pt cannot tell me where he is right now. Care conts
--- NOTE | 2016-09-27 16:03 | PCM.PNMED ---
Subjective Date of Service Sep 27, 2016 Subjective Patient without complaints of chest pain, dyspnea, nausea vomiting or abdominal pain. His plan is to leave here" go live in his treehouse". Exam Vital Signs Vital Sign - Last Date Time Temp Pulse Resp B/P Pulse Ox O2 Delivery O2 Flow Rate FiO2 09/27/16 13:22 Room Air 09/27/16 13:14 36.6 86 17 152/94 98 Intake and Output 09/26/16 09/26/16 09/27/16 Cumulative From/Thru 15:00 23:00 07:00 09/24/16 15:21 - 09/26/16 17:02 Intake Total 58 ml 3716 ml Output Total 5275 ml Balance 58 ml -1559 ml Intake Oral 1440 ml IV Total 58 ml 2276 ml Output Urine Total 5275 ml # Bowel Movements 0 Exam Gen.- A+ O 1-2 no apparent distress. Sitting up in bed Eyes- open conjunctiva clear, pupils equal nonicteric, no discharge ENT- ears normal, nose normal Neck- supple/trach midline CVS- RRR no murmur or gallop Lungs- CTA GI- NABS/NT soft Musc- moving 4 no obvious deformity Neuro- cranial nerves II through XII intact to gross examination, nonfocal Skin- warm and dry, no rashes/lesions/wounds noted Psych- pleasant and appropriate, other than his plans which are as described above Lab and Diagnostics Result Diagram: 09/25/16 0455 09/27/16 0741 X-Rays, CTs and MRIs CT 09/23 [facility] showed constipation/obstipation no pancreatitis Assessment & Plan 75-year-old homeless male presents 09/24 confused with abdominal pain. I believe I heard about this patient at [facility] in the emergency room and the plan had been to send him to [facility] for a psychiatric bed. Instead somehow [place] [address] [place] house [place] house when police were called and he was brought here to [facility]. Reportedly his car was broken down when he presented to [facility] 09/23. 09/27 meeting patient for first day. He is confused and ambulatory. I am stopping aspirin as there is no history of heart disease or cerebrovascular disease and history of pulmonary embolism is accurate this is not adequate therapy. He was started on a statin also for unclear reasons this was stopped as his LDL is 58, HDL was 40. Again no heart disease no cerebrovascular disease no indication. #Metabolic encephalopathy -ammonia 75, we will start lactulose, CT of the abdomen and pelvis from [facility] did not discuss possible cirrhosis #Bipolar disease- therapeutic on lithium -psych consult pending by noon 09/28 #CKD3? -Cr 1.4 . To be about baseline -[place] versus BPH #Abdominal pain -Pancreatitis posited, seems dobutful, lipase slightly elevated, CT scan not revealing other than constipation. Patient tolerating food. #BPH incomplete bladder emptying, continue Flomax #hypercalcemia- baseline 10.3 with normal albumin --hx of lithium, pending PTH, pulmonary embolism hx-embolectomy procedure? Diet: Dysphagia mechanical DVT prophylaxis heparin scd ambulate, Appreciate social media marketer help, patient currently homeless since losing was not at a temporary motel. PT rec snf, to d/w pt/son Code full Disposition inpt status Nathaniel (son): , Patient medically stable to discharge to SNF or 2 psychiatric unit GI Prophylaxis: H2 jad VTE Prophylaxis: Sub-Q Heparin (Unfractionated) Resuscitation Status: CPR: Attempt Resuscitation Sanjay Champion MD Sep 27, 2016 16:03
[2016-09-27 16:33] VITALS: BP 136/78; PULSE 67; RESP 16; O2SAT 97
--- NOTE | 2016-09-27 18:09 | NUR ---
Behavior Pt behavior much more appropriate after seen by Psych Physician Dr Johns this afternoon. Pt compliant and cooperative with care and not requesting to leave. Took a nap this afternoon, woke at dinner time and encouraged to eat his meal to which he was compliant. New orders for PO Lactulose to be given TID; pt made aware. Encouraged pt to use call light when he needs to get up for any needs as prevention of any falls to which pt states understanding. Will continue to monitor with frequent rounds.
--- NOTE | 2016-09-27 19:40 | NUR ---
Behavior/Agitation Pt came out of room stating to RN going off duty "you lied to me, I wanna see that Andreas rueda he said he would be back at 0730." RN explained to pt that Dr Johns would be back tomorrow to finish his assessment, pt became more agitated when told he needs to stay the night for the evaluation to be finished tomorrow. Pt raised container in his band calling RN a bitch and threatening to hit her. ELECTRIC POWER LINE REPAIRER and another RN arrived, security called and pt willfully went back to his room. Sitter outside room. Will continue to monitor with frequent rounds.
[2016-09-27] MEDS: Lactulose 20 Gm/30 mL 30 mL Syrup PO SCH (20:30)
--- NOTE | 2016-09-27 20:48 | NUR ---
Social Work note - CHEESE COOKER was requested to assist with planning for pt as Pt threatening to leave AMA. Pt is not alert or oriented. He states that he is currently staying in a clinic and has been her for 6-7 days. He is not sure what town he is in, believes he is in [place] and is on his way to [place]. He states that he is angry because he was to see Dr Andreas renner and if Dr is not coming, he will just leave. He has no insight as to where he will go or what he will do. No insight as to why he was to see Dr Johns. CHEESE COOKER was able to console Pt, active listened. Pt is willing to stay in the hospital tonight - plans to see Dr Johns tomorrow. CHEESE COOKER discussed with RN and charge machine operator who states that they have talked with hospitalist and Dr Johns - Pt is not medically stable for d/c and can be held in the hospital for Altered Mental Status. Sitter at bedside. Plan: Continued medial and psychiatric work up. PASCUAL Mendes
--- NOTE | 2016-09-27 20:54 | NUR ---
agitation at shift change pt became agitated. left his room and was wandering around. he threatened to harm staff if they didn't let him leave. he stated that Dr. Johns was supposed to be here to see him. pt was confused on the time of day he believed it was 0730 in the morning. pt was able to be deescalated and walked back to his room. However he was not agreeable to staying. Dr. Johns was called because he did a psychiatric evaluation on the patient today. He said he did not feel the pt was safe to leave. He said it is still uncertain if the patient has delirium or other mental disturbance. Dr. Jovel was called who agreed the patient was not medically stable to leave. spinning room worker came and sat and talked with pt and he is now agreeable to staying though he is still sitting up in his clothes with all of his possessions. he did take his lithium from nurse but refused all other meds.
[2016-09-28] MEDS: Heparin 5,000 Unit/mL Inj SUBQ SCH ×3 (00:30→17:13)
--- NOTE | 2016-09-28 04:56 | NUR ---
behavior pt has remained in his room all night. his sitter reports he has been pleasant and cooperative with care. he has at times talked about wanting to leave but was easily redirected and has not become agitated. care continues.
[2016-09-28 06:30] VITALS: BP 165/82; PULSE 54; RESP 18; O2SAT 97
[2016-09-28] MEDS: Lactulose 20 Gm/30 mL 30 mL Syrup PO SCH ×3 (09:39→22:17)
[2016-09-28] MEDS: Senna-Docusate 8.6-50 mg Tablet PO SCH (09:39)
[2016-09-28 12:51] VITALS: BP 146/73; PULSE 65; RESP 20; O2SAT 95
--- NOTE | 2016-09-28 13:36 | PCM.PNMED ---
Subjective Date of Service Sep 28, 2016 Subjective No complaints of chest pain, dyspnea, nausea or vomiting. When I ask him if he knows me he says "sure" I was "the mohit that was rude to him and the girl". Exam Vital Signs Vital Sign - Last Date Time Temp Pulse Resp B/P Pulse Ox O2 Delivery O2 Flow Rate FiO2 09/28/16 12:51 36.9 65 20 146/73 95 Room Air Intake and Output 09/27/16 09/27/16 09/28/16 Cumulative From/Thru 15:00 23:00 07:00 09/24/16 15:21 - 09/28/16 06:28 Intake Total 500 ml 620 ml 200 ml 5036 ml Output Total 1650 ml 2600 ml 1250 ml 05242 ml Balance -1150 ml -1980 ml -1050 ml -5739 ml Intake Oral 500 ml 550 ml 200 ml 2690 ml IV Total 70 ml 2346 ml Output Urine Total 1650 ml 2600 ml 1250 ml 90879 ml # Voids 1 1 # Bowel Movements 0 0 Exam Gen.- A+ O 1-2 no apparent distress. Patient sitting on sulfa in the room by the window having difficulty putting on pants Eyes- open conjunctiva clear, pupils equal nonicteric, no discharge ENT- ears normal, nose normal Neck- supple/trach midline CVS-normal rate Lungs-respirations regular and nonlabored GI-flat Musc- moving 4 no obvious deformity Neuro- cranial nerves II through XII intact to gross examination, nonfocal Skin- warm and dry, no rashes/lesions/wounds noted Psych- pleasant and appropriate, but in need of constant redirection Lab and Diagnostics Result Diagram: 09/25/16 0455 09/28/16 0605 X-Rays, CTs and MRIs CT 09/23 [facility] showed constipation/obstipation no pancreatitis Assessment & Plan 75-year-old homeless male presents 09/24 confused with abdominal pain. I believe I heard about this patient at [facility] in the emergency room and the plan had been to send him to [facility] for a psychiatric bed. Instead somehow [place] [address] from house to house when police were called and he was brought here to [facility]. Reportedly his car was broken down when he presented to [facility] 09/23. 09/27 meeting patient for first day. He is confused and ambulatory. I am stopping aspirin as there is no history of heart disease or cerebrovascular disease and history of pulmonary embolism is accurate this is not adequate therapy. He was started on a statin also for unclear reasons this was stopped as his LDL is 58, HDL was 40. Again no heart disease no cerebrovascular disease no indication. 09/28 patient is impulsive and needs redirection, plan to discharge him to [facility] SNF but he needs psychiatry consult and not to have to sitter for 24 hours. To that end we will start him on Seroquel as needed and in the evening when he becomes a little more difficult. Message left with son Nathaniel. #Metabolic encephalopathy -ammonia 77, we will start lactulose 09/27, CT of the abdomen and pelvis from [facility] did not discuss possible cirrhosis -Psychiatry consult still pending #Bipolar disease- therapeutic on lithium -psych consult pending by noon 09/28 -Agitation will start patient on Seroquel when necessary and in evening and try and wean sitter 09/28 #CKD3? -Cr 1.4 . To be about baseline -[place] versus BPH #Abdominal pain -Pancreatitis posited, seems dobutful, lipase slightly elevated, CT scan not revealing other than constipation. Patient tolerating food. #BPH incomplete bladder emptying, continue Flomax #hypercalcemia- baseline 10.3 with normal albumin --hx of lithium, pending PTH, pulmonary embolism hx-embolectomy procedure? Diet: Dysphagia mechanical DVT prophylaxis heparin scd ambulate, Appreciate social work nurse help, patient currently homeless since losing was not at a temporary motel. PT rec snf, to d/w pt/son Code full Disposition inpt status Nathaniel (son): , Patient medically stable to discharge to SNF or 2 psychiatric unit GI Prophylaxis: H2 jad VTE Prophylaxis: Sub-Q Heparin (Unfractionated) Resuscitation Status: CPR: Attempt Resuscitation Sanjay Champion MD Sep 28, 2016 13:36
--- NOTE | 2016-09-28 13:45 | CONS ---
[address] [address] CONSULTATION REPORT PATIENT: MAXIM CALVIN : 1940 MR#: [id number] ADMIT: 09/24/2016 JOB ID: [id number] DATE OF SERVICE: 09/28/2016 PSYCHIATRIC CONSULTATION: IDENTIFICATION: The patient is a 75-year-old single, white male. He has recently become homeless and had been living in his car for the past 72 hours. 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 Prior to the past 72 hours, he had been living in [place], [place] for approximately 10 years. REASON FOR ADMISSION: Client brought to the ED after found wandering and confused. He had wandered into someone's home and as [facility] brought him to our ED. HISTORY OF PRESENT ILLNESS: The patient presents for evaluation and treatment of confusion and wandering. I have met with him for a 60 minutes session, reviewed course with his internal medicine physician and his son Nathaniel, (phone # in [facility]). I also reviewed records kept by the ED and nursing. Client's main issue at this time is poor memory, confusion, disorientation and disinhibition. The condition has been present for the past six months and appears to be worsening. At present, it is of a moderate intensity manifesting with symptoms of poor impulse control, disinhibition, frequently getting lost and wandering, confused and disoriented. All the above are made worse by a chaotic living environment, social isolation, poor sleep and physical problems (client's ammonia level was 77, client complains of back pain, client showed some chronic renal insufficiency). Client himself is a poor historian. He denied psychiatric review of systems for depression, adry, psychosis or substance abuse. He believed that it was 2019. He believes he has $13,000.00 in his wallet when he only has three. He does not know the town he is in. His long-term memory is intact and he is really showing severe impairment in immediate memory and short-term recall. Currently he is presenting with marked neurocognitive deficits and some difficulty with impulse control and coping. His reality testing is intact. His judgment and insight are severely impaired by the cognitive deficits. PAST MEDICAL HISTORY: MEDICATIONS: The client has been on [place] 300 twice a day. ALLERGIES: HYDROCODONE. ILLNESSES: 1. History of pulmonary embolism. 2. History of low back pain. 3. History of bipolar mood disorder. FAMILY MEDICAL HISTORY: Noncontributory. PAST PSYCHIATRIC HISTORY: The client reported being hospitalized in 1951. PRIMARY CARE PHYSICIAN: Dr. Paula, last saw him on September 22, 2016 in [place]. SOCIAL HISTORY: The client was born and raised in the [facility]. 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 HISTORY OF TRAUMA: The client denies. DRUG AND ALCOHOL: The client denies. LETHALITY: The client denies suicidal ideation or previous suicide attempts. RELATIONSHIP HISTORY: in 1959, in 1972. Three grown children. JUDAISM: None. LEGAL HISTORY: Client denied but his son said that he is on deferred prosecution after a restraining order was placed due to a stocking charge in [place]. Client feels that this was an injustice and got very upset when talking about this. PHYSICAL EXAMINATION: Vital signs: 152/96, pulse 86, respirations 14, afebrile. Neuro: Normal balance, steady gait. LABORATORIES: UA normal. [place] level 0.9. CBC normal. Liver and electrolytes normal. Creatinine 1.4. Ammonia level 71 on admission. MENTAL STATUS EXAMINATION: Client's mini-mental status showed moderate impairment with an 18/30. Mental status: Client disheveled, appeared tense and provocative initially. As the interview proceeded, he became more relaxed and I was able to maintain an alliance with him. He had good eye contact. His behavior was calm. His attitude guarded and withholding. Speech normal rate and rhythm. Mood dysphoric. Affect flat. Normal intensity. Thought process: Client is unable to relate a coherent history. He has significant impairment in memory. His thought process was disoriented and confused. He was unable to appreciate complex abstractions which he normally at baseline would have. He did not appear to be responding to internal stimuli. Thought content: Client ruminating on past injustices. He appears to be rationalizing to normalize recent bizarre behavior. Denied suicidal ideation or auditory hallucinations. Client was oriented to person, not to place, not to date, marked impairment in immediate and short-term memory. Long-term memory relatively intact. Attention and concentration impaired. Insight and judgment impaired. Impulse control: Client is increasingly disinhibited and having a difficult time delaying impulses of anger and sadness. Reality testing is intact. Competence to handle current stressors is currently being overwhelmed. 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 He has been retired in [place] for the past 10 years and had been doing relatively well. He has a history of bipolar mood disorder, and has been well managed on low-dose lithium. He presented to the ED after [facility] found him wandering lost and confused in the [place] area. He had driven down from [place] and was looking for an apartment. He appeared disoriented and confused. I was able to talk to the patient's son, Nathaniel. He stated this is a marked departure from his father's norm. They stated that in the past six months he has had increasing calls from people in [place] that know his dad stating that he is having trouble with memory. He is becoming more disinhibited and he is having increasing interpersonal relationship conflicts that are resulting in the police becoming involved. He essentially sold all of his things, got into his car and started driving [place]. Client does not appear to be in an acute manic or psychotic state at this time. He appears to be suffering either from a delirium or a dementia. His laboratories except for elevated ammonia levels would suggest an early stage dementing process rather than a delirium. The client's family is asking for a shelter home so they can have time to find appropriate housing. DIAGNOSIS: AXIS I Neurocognitive disorder unspecified, rule out reversible causes of delirium. Rule out dementia, history of bipolar mood disorder. AXIS II Defer. AXIS III 1. Encephalopathy. 2. Chronic kidney disease. 3. Benign prostatic hypertrophy. 4. History of pulmonary embolism. AXIS IV Moderate, due to homelessness. AXIS V Current global assessment of functioning equal to 30. PLAN: Recommend: 1-Client have a sitter until transfer to a shelter home facility can be arranged. Client will need help from social work to connect with family regarding funding sources. 2- Rule out potentially reversible causes of dementia prior to discharge 3- Could consider a trial of Aricept 5 mg daily for memory enhancement (one concern would be the exacerbation of prostate symptoms) Try to get a calender, a notepad and some of his personal items to help to develop a structured calm environment 4- Client currently does not have mental capacity to make medical or housing decisions due to due to a general medical condition 5- rec dc seroquel, and use low dose scheduled klonopin .5mg bid if he can tolerate without becoming disinhibited. 6- rec risperdal hs only if he is showing signs of psychosis 7- Pt's family is motivated for a SNHF 8- I will follow with you through the weekend Thank you for including me in the consult. It was a pleasure to work with this patient and his family. AMANDA
[2016-09-28 15:45] VITALS: BP_SYST 159; BP_SYST 162; BP_DIAS 107; BP_DIAS 113; PULSE 102; PULSE 95; RESP 19; RESP 21; O2SAT 95; O2SAT 98
[2016-09-28 17:15] VITALS: BP 126/82; PULSE 97; RESP 20; O2SAT 98
--- NOTE | 2016-09-28 18:41 | NUR ---
183 Seroquel Held 1829 dose of Seroquel held, order states to give if patient awake, patient asleep. Care is ongoing.
[2016-09-28 20:00] VITALS: BP 124/85; PULSE 95; RESP 16; O2SAT 97
[2016-09-29] MEDS: Heparin 5,000 Unit/mL Inj SUBQ SCH ×4 (00:44→16:30)
--- NOTE | 2016-09-29 04:54 | NUR ---
Medication Patient was able to take PO medication early in shift, but as shift went on patient began to refuse oral medication. Patient oriented to self and place. Saline locked. Up to commode with 2 person assist.
[2016-09-29 05:19] VITALS: BP 129/78; PULSE 92; RESP 16; O2SAT 97
[2016-09-29] MEDS: Senna-Docusate 8.6-50 mg Tablet PO SCH (08:21)
[2016-09-29] MEDS: Lactulose 20 Gm/30 mL 30 mL Syrup PO SCH ×3 (08:30→20:28)
--- NOTE | 2016-09-29 10:15 | NUR ---
Meds/urinary retention Pt reluctantly took some oral medications crushed in pudding, but later spit out what may have been cheeked meds/pudding. Refused to take some meds (see emar). MD aware. Calls me the "evil one" and "bitch." Also speaks repetitively about "the man" who didn't come back and who "tried to trick" him. ~450cc per bladder scan. Unable to urinate in urinal or in bathroom. IN and out cath per MD, only 300cc out with 344cc residual per bladder scan. Will continue to monitor.
[2016-09-29 12:30] VITALS: BP 114/72; PULSE 96; RESP 16; O2SAT 96
--- NOTE | 2016-09-29 12:40 | PCM.PNMED ---
Subjective Date of Service Sep 29, 2016 Subjective Patient behaviors are beginning to escalate. He is not taking medication. Starting to have paranoid ideation about people trying to treat him and speaking out against staph. He does have a history of speaking aggressively, he has ended up in fdc for this but he has never acted out on any of that according to his son Nathaniel with whom I spoke with extensively. I also spoke with his primary care provider Dr Obrien in [place] who has known him for many years. They went out to lunch they got him a cell phone to maintain contact sometime around 09/23 last week. Between the son and his primary care provider I was able to piece together the series of events that brought him to our attention here in [facility]. It appears she was discharged from the emergency room went back to his prior living situation where the police had been called, cleaned his things out as he had issues now and in the past with the landlord. He checked into the [facility] in [place], and made contact with his primary care provider Dr. Tre Obrien. He had lunch and they got him a cell phone and the patient reportedly was going up to the "[place] area" somewhere out in the count to the patient and got lost and was knocking on the door of a family who were caregivers for an elderly patient their father with dementia and recognize the signs and symptoms and brought him here to the [facility] emergency room. Exam Vital Signs Vital Sign - Last Date Time Temp Pulse Resp B/P Pulse Ox O2 Delivery O2 Flow Rate FiO2 09/29/16 12:30 36.4 96 16 114/72 96 Room Air Intake and Output 09/28/16 09/28/16 09/29/16 Cumulative From/Thru 15:00 23:00 07:00 09/24/16 15:21 - 09/29/16 06:20 Intake Total 586 ml 50 ml 5672 ml Output Total 1000 ml 365 ml 87942 ml Balance -414 ml -315 ml -6468 ml Intake Oral 586 ml 50 ml 3326 ml IV Total 2346 ml Output Urine Total 1000 ml 365 ml 46372 ml # Voids 2 3 # Bowel Movements 1 1 Exam Gen.-Thin elderly male sleeping in no apparent distress Eyes-closed, normal eyelids, no discharge ENT- ears normal, nose normal Neck- supple/trach midline CVS-normal rate Lungs-respirations regular and nonlabored GI-flat Musc- moving 4 no obvious deformity Neuro- cranial nerves II through XII intact to gross examination, nonfocal Skin- warm and dry, no rashes/lesions/wounds noted Psych-sleeping Lab and Diagnostics Result Diagram: 09/25/16 0455 09/28/16 0605 X-Rays, CTs and MRIs CT 09/23 [facility] showed constipation/obstipation no pancreatitis Assessment & Plan 75-year-old homeless male presents 09/24 confused with abdominal pain. I believe I heard about this patient at [facility] in the emergency room and the plan had been to send him to [facility] for a psychiatric bed. Instead somehow [place] was [place] [address] from house to house when police were called and he was brought here to [facility]. Reportedly his car was broken down when he presented to [facility] 09/23. 09/27 meeting patient for first day. He is confused and ambulatory. I am stopping aspirin as there is no history of heart disease or cerebrovascular disease and history of pulmonary embolism is accurate this is not adequate therapy. He was started on a statin also for unclear reasons this was stopped as his LDL is 58, HDL was 40. Again no heart disease no cerebrovascular disease no indication. 09/28 patient is impulsive and needs redirection, plan to discharge him to [facility] SNF but he needs psychiatry consult and not to have to sitter for 24 hours. To that end we will start him on Seroquel as needed and in the evening when he becomes a little more difficult. Message left with son Nathaniel. 09/29 patient seems to be deteriorating and becoming more paranoid. I spoke with his son Nathaniel as well as primary care provider Dr Tre Obrien , they have been worried about his deteriorating dictation for months. He does have episodes where he speaks aggressively and has landed in fdc but he has never acted on any of these aggressive behaviors. Starting IV fluids, calcitonin, increasing Flomax and adding finasteride. Psychiatry revisit appreciated. #Urinary retention #BPH- incomplete bladder emptying, -Flomax 0.4mg on admit, increased to 0.8 and add finasteride 09/29 Feldman catheter when necessary patient will not do well if it is indwelling given poor mentation. #hypercalcemia- baseline 10.3 with normal albumin, 11.2 and rising 09/29 -- lithium from psychiatric standpoint this cannot be discontinued, we will try and manage with it -PTH 55 inappropriately high normal in setting of hypercalcemia -IVF, calcitonin 09/29 -We will monitor #Metabolic encephalopathy -ammonia 77, we will start lactulose 09/27, CT of the abdomen and pelvis from [facility] did not discuss possible cirrhosis -Psychiatry consult recommends ruling out reversible causes which I think has been done by PCP requesting records 09/28 -Hypercalcemia may be contributing may be secondary to lithium, this cannot be discontinued according to PCP in son has been tried with disastrous results. #Bipolar disease- therapeutic on lithium he has been tried on other medications with disastrous results. He has been on lithium long-term and this is the only thing that has stabilized him according to PCP -Agitation will start patient on Seroquel when necessary and in evening and try and wean sitter 09/28 -Condition deteriorating adding when necessary IM olanzapine 09/29 #CKD3? -Cr 1.4 . To be about baseline -[place] versus BPH, monitor #Abdominal pain -Pancreatitis posited, seems dobutful, lipase slightly elevated, CT scan not revealing other than constipation. Patient tolerating food. -Hypercalcemia may be contributing #Hx pulmonary embolism hx-embolectomy procedure? Diet: Dysphagia mechanical DVT prophylaxis heparin scd ambulate, Appreciate social work job titles help, patient currently homeless since losing was not at a temporary motel. PT rec snf, to d/w pt/son Code full Disposition inpt status Nathaniel (son): , Patient medically stable to discharge to SNF or 2 psychiatric unit GI Prophylaxis: H2 jad VTE Prophylaxis: Sub-Q Heparin (Unfractionated) Resuscitation Status: CPR: Attempt Resuscitation Sanjay Champion MD Sep 29, 2016 12:40
[2016-09-29] MEDS: 0.9% Sodium Chloride 1,000 ML IV SCH ×2 (13:12→23:32)
[2016-09-29] MEDS: Calcitonin 200 IU 3.7 mL Nasal Spray NASAL SCH ×2 (13:30→13:38)
--- NOTE | 2016-09-29 13:51 | PCM.PNPSY ---
Subjective Date of Service Sep 29, 2016 Subjective I spent 30 minutes both reviewing his treatment plan and providing supportive and educational psychotherapy. I spent less than 50% of the time counseling the patient as he was so sedated he could tolerate only a brief interaction. Alex reports is having difficulty urinating and does not understand why we are continuing to detain him in the hospital. He is a poor historian and his cognitive function is so impaired at this point that his judgment and insight and impulse control are all impaired. The Staff reports that he had been active and was able to participate well during one-to-one activities with the nursing staff on Tuesday and Tuesday. However for the past 48 hours he is appeared sedated and is having trouble feeding himself, urinating, and walking. Staff reports that he is sleeping poorly. He complains of medication side effects of sedation and weakness. Patient was not able to identify his medications or what they were used to treat. He did not appear to understand the need for medications by the questions he asked during our discussion. Current Medications Current Medications Hydralazine HCl 25 mg 25 mg Q4H PRN PO Last administered on 09/28/16 15:53; Admin Dose 25 MG; Start 09/28/16 at 13:40 Lactulose 20 gm TID PO Last administered on 09/28/16 22:17; Admin Dose 20 GM; Start 09/27/16 at 20:30 Lisinopril 10 mg DAILY PO Last administered on 09/29/16 08:21; Admin Dose 10 MG ; Start 09/28/16 at 14:03 Quetiapine Fumarate 12.5 mg 1830,1930,2030,2130 PO Last administered on 19:52; Admin Dose 12.5 MG; Start 09/28/16 at 18:30 Sodium Chloride 1,000 ml @ 100 mls/hr Q10H IV Last administered on 09/29/16 13 :12; Admin Dose 100 MLS/HR; Start 09/29/16 at 12:55 Mental Status Exam Vital Signs Vital Signs Date Time Temp Pulse Resp B/P Pulse Ox O2 Delivery O2 Flow Rate FiO2 09/29/16 12:30 36.4 96 16 114/72 96 Room Air Appearance: Unkept, Disheveled Attitude: Pleasant, Cooperative Behavior: Distractible, Other Affect: Restricted, Blunted, Flat Mood: Irritable, Dysthymic Thought Process/Associations: Other (sedated) Speech Production: Mumbled Speech Rate: Lags/Latency Speech Articulation: Slurred Thought Content: Appropriate Danger to Self/Suicidal Ideati: None Danger to Others: None Delusions: Other (patient not exhibiting delusional themes ) Consciousness: Somnolent, Lethargic Orientation: Person Memory: Short Term Memory (Impaired) Estimate Intellectual Function: Above Average Basis for IQ estimate: Awareness current events, Word use/vocabulary, Educational history, Employment history Attention/Concentration & Cogn: Impaired Insight: Limited Judgement: Limited Result Diagram: 09/25/16 0455 09/28/16 0605 Mental Health Plan 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 He has been retired in [place] for the past 10 years and had been doing relatively well. He has a history of bipolar mood disorder, and has been well managed on low-dose lithium. He presented to the ED after good samaritans found him wandering lost and confused in the [place] area. He had driven down from [place] and was looking for an apartment. He appeared disoriented and confused. I was able to talk to the patient's son, Nathaniel. He stated this is a marked departure from his father's norm. They stated that in the past six months he has had increasing calls from people in [place] that know his dad stating that he is having trouble with memory. He is becoming more disinhibited and he is having increasing interpersonal relationship conflicts that are resulting in the police becoming involved. He essentially sold all of his things, got into his car and started driving [place]. Client does not appear to be in an acute manic or psychotic state at this time. He appears to be suffering either from a delirium or a dementia. His laboratories except for elevated ammonia levels would suggest an early stage dementing process rather than a delirium. The client's family is asking for a senior living home so they can have time to find appropriate housing. [place] AXIS I Neurocognitive disorder unspecified Rule out reversible causes of delirium. Rule out dementia history of bipolar mood disorder. AXIS II Defer. AXIS III 1. Encephalopathy. 2. Chronic kidney disease. 3. Benign prostatic hypertrophy. 4. History of pulmonary embolism. AXIS IV Moderate, due to homelessness. AXIS V Current global assessment of functioning equal to 20. Treatments Patient is being provided with safety through the use of a sitter to provide structure and active adult engagement. We will attempt to identifying stressors that may have led to current episode. We will attempt to: Maintain in a closely monitored and structured unit Provide low-stimulation environment Obtain collateral data to assist in treatment planning Decrease frequency of relapse and need for re-hospitalization Establish a consistent sleep pattern Medication effective in stabilization of mood and/or thought process Reduce the risk of imminent harm to self and/or others by providing a safe environment Tolerates medication without side effects Recommend: 1-Client have a sitter until transfer to a senior living home facility can be arranged. Client will need help from social work to connect with family regarding funding sources. 2- Rule out potentially reversible causes of dementia prior to discharge 3- Could consider a trial of Aricept 5 mg daily for memory enhancement (one concern would be the exacerbation of prostate symptoms) Try to get a calender, a notepad and some of his personal items to help to develop a structured calm environment 4- Client currently does not have mental capacity to make medical or housing decisions due to due to a general medical condition 5- rec dc seroquel, and use low dose scheduled klonopin .5mg bid if he can tolerate without becoming disinhibited. 6- rec risperdal hs (1mg) only if he is showing signs of psychosis (at this point he is either irritable and confused or sedated but is not showing psychotic symptoms). 7- Pt's family is motivated for helping him find a SNHF 8- I will follow with you through the weekend Bola Johns MD Sep 29, 2016 13:50
--- NOTE | 2016-09-29 13:53 | NUR ---
Swallow/NPO Refuses to swallow food or medications (crushed in sauce and whole), will not swallow even with prompts. When fed 1:1, he held food in mouth and required multiple verbal prompts to spit it out. NPO for now; left msg with speech therapy. MD aware that Finasteride and lactulose not given and that pt may not be able to take other PO meds. IVF started per orders.
--- NOTE | 2016-09-29 15:31 | NUR ---
SEVERO called Alvarezkate at [facility] and asked him to re-review for acceptance of pt post psychiatry notes. Loan to review and get back with SEVERO. IF pt is to go to [facility], pt will have to be 24 hours sitter free. SEVERO will continue to follow. MAIN Lobo Addendum: 09/29/16 at 1639 by KHADIJAH MACEDO SEVERO received message from [facility] stating they are still interested in pt, but would like to see notes post sitter being discharged. SEVERO also received message from son, SEVERO to call son back tomorrow. MAIN Lobo
[2016-09-29 17:05] VITALS: BP 160/76; PULSE 67; RESP 18; O2SAT 99
[2016-09-29 18:07] VITALS: BP 134/65; PULSE 63; RESP 16; O2SAT 88
[2016-09-29 19:58] VITALS: BP 142/107; PULSE 103; RESP 20; O2SAT 96
[2016-09-29 21:34] VITALS: BP 121/77; PULSE 96
[2016-09-30] MEDS: Heparin 5,000 Unit/mL Inj SUBQ SCH ×3 (00:44→16:30)
--- NOTE | 2016-09-30 03:43 | NUR ---
Mentation/Medications Pt. has refused all PO medications this shift. Pt. just stares at the wall, and will not engage into conversation. Pt. is still refusing to swallow juice or anything PO at this time. Pt. was agitated earlier in shift, but however is now sleeping. Will continue to monitor.
[2016-09-30 04:06] VITALS: BP 153/93; PULSE 100; RESP 20; O2SAT 97
[2016-09-30] MEDS: Senna-Docusate 8.6-50 mg Tablet PO SCH (08:30)
[2016-09-30] MEDS: Lactulose 20 Gm/30 mL 30 mL Syrup PO SCH ×3 (08:30→20:30)
[2016-09-30 08:40] VITALS: BP 150/67; PULSE 93; RESP 20; O2SAT 99
[2016-09-30] MEDS: Dextrose 5% 1,000 ML IV SCH ×2 (08:45→11:15)
--- NOTE | 2016-09-30 13:05 | PCM.PNMED ---
Subjective Date of Service Sep 30, 2016 Subjective Patient not speaking to anybody. No complaints of chest pain, dyspnea, nausea or vomiting Exam Vital Signs Vital Sign - Last Date Time Temp Pulse Resp B/P Pulse Ox O2 Delivery O2 Flow Rate FiO2 09/30/16 08:40 36.6 93 20 150/67 99 Room Air Intake and Output 09/29/16 09/29/16 09/30/16 Cumulative From/Thru 15:00 23:00 07:00 09/24/16 15:21 - 09/30/16 05:46 Intake Total 1029 ml 1109 ml 7810 ml Output Total 1000 ml 800 ml 44066 ml Balance 29 ml 309 ml -6130 ml Intake Oral 520 ml 0 ml 3846 ml IV Total 509 ml 1109 ml 3964 ml Output Urine Total 1000 ml 800 ml 65167 ml # Voids 3 # Bowel Movements 0 1 Exam Gen.-Thin elderly male lying in bed apparently doing exercises he does not engage me when I come into the room Eyes-closed, normal eyelids, no discharge ENT- ears normal, nose normal Neck- supple/trach midline CVS-normal rate Lungs-respirations regular and nonlabored GI-flat Musc- moving 4 no obvious deformity Neuro- cranial nerves II through XII intact to gross examination, nonfocal Skin- warm and dry, no rashes/lesions/wounds noted Psych-not speaking to anyone including me, not engaging them, not making eye contact. Lab and Diagnostics Result Diagram: 09/25/16 0455 09/30/16 0530 X-Rays, CTs and MRIs CT 09/23 [facility] showed constipation/obstipation no pancreatitis Assessment & Plan 75-year-old homeless male presents 09/24 confused with abdominal pain. I believe I heard about this patient at [facility] in the emergency room and the plan had been to send him to [facility] for a psychiatric bed. Instead somehow [place] [address] from house to house when police were called and he was brought here to [facility]. Reportedly his car was broken down when he presented to [facility] 09/23. 09/27 meeting patient for first day. He is confused and ambulatory. I am stopping aspirin as there is no history of heart disease or cerebrovascular disease and history of pulmonary embolism is accurate this is not adequate therapy. He was started on a statin also for unclear reasons this was stopped as his LDL is 58, HDL was 40. Again no heart disease no cerebrovascular disease no indication. 09/28 patient is impulsive and needs redirection, plan to discharge him to [facility] SNF but he needs psychiatry consult and not to have to sitter for 24 hours. To that end we will start him on Seroquel as needed and in the evening when he becomes a little more difficult. Message left with son Nathaniel. 09/29 patient seems to be deteriorating and becoming more paranoid. I spoke with his son Nathaniel as well as primary care provider Dr Tre Obrien [phone], they have been worried about his deteriorating dictation for months. He does have episodes where he speaks aggressively and has landed in [facility] but he has never acted on any of these aggressive behaviors. Starting IV fluids, calcitonin, increasing Flomax and adding finasteride. Psychiatry revisit appreciated. 09/30 patient not engaging anybody anymore, not eating not taking anything by mouth. We will contact son as well as primary care provider perhaps they can call and speak to the patient and elicit more cooperation. Monitoring calcium and sodium giving IV fluids accordingly. #Hypernatremia-patient not taking by mouth I gave him a liter of D5 water will check again in a.m. 09/30 #Bipolar disease- therapeutic on lithium he has been tried on other medications with disastrous results. He has been on lithium long-term and this is the only thing that has stabilized him according to PCP -Condition deteriorating adding when necessary IM olanzapine 09/29 -try and wean sitter 09/28, stopped as per psyc rec 09/30, trying Klonopin 0.5 mg twice a day when necessary as per psych rec 09/30 #Urinary retention #BPH- incomplete bladder emptying, -Flomax 0.4mg on admit, increased to 0.8 and add finasteride 09/29 Feldman catheter - #hypercalcemia- baseline 10.3 with normal albumin, 11.2 and rising 09/29, 10.6 -- lithium from psychiatric standpoint this cannot be discontinued, we will try and manage with it -PTH 55 inappropriately high normal in setting of hypercalcemia -IVF, calcitonin 09/29 #Metabolic encephalopathy/dementia -ammonia 77, we will start lactulose 09/27, CT of the abdomen and pelvis from [facility] did not discuss possible cirrhosis -Psychiatry consult recommends ruling out reversible causes which I think has been done by PCP requesting records 09/28 -Hypercalcemia may be contributing may be secondary to lithium, this cannot be discontinued according to PCP in son has been tried with disastrous results. #CKD3? -Cr 1.4 . To be about baseline -Kiron versus BPH, monitor #Abdominal pain seems resolved but hard to say 09/29 patient not speaking or eating 09/30 -Pancreatitis posited, seems dobutful, lipase slightly elevated, CT scan not revealing other than constipation. Patient tolerating food. -Hypercalcemia may be contributing #Hx pulmonary embolism hx-embolectomy procedure? Diet: Dysphagia mechanical DVT prophylaxis heparin scd ambulate, Appreciate rn social services help, patient currently homeless since losing was not at a temporary motel. PT rec snf, to d/w pt/son Code full Disposition inpt status Nathainel (son): , Patient medically stable to discharge to SNF or 2 psychiatric unit GI Prophylaxis: H2 jad VTE Prophylaxis: Sub-Q Heparin (Unfractionated) Resuscitation Status: CPR: Attempt Resuscitation Sanjay Champion MD Sep 30, 2016 13:05 Sanjay Champion MD Sep 30, 2016 13:05
--- NOTE | 2016-09-30 13:15 | NUR ---
Social Work Note-Continued d/c planning D/A: EMR review for this patient on day #6 of admission, pt continues to need a sitter at this time. Pt continues to have poor oral intake and a decrease in verbal engagement. Patients [place] level has dropped from admission (.9) to (.5) 09/27. With some medication refusal, inquired during multidisciplinary rounds whether there is a need to repeat lab to determine if the patient is potentially subtherapeutic. Psychiatry continues to follow. Anticipate patient with have correction needs at discharge for his hypercalcemia and medication management, with psychiatry indicating a possibility of patient presenting currently with delirium. PLAN: #1 Floor SCIENTIST to call pts son to discuss SNF with eventual need for long-term care should his condition not improve and encourage pts son to travel to care and support patient through this transition. #2 Send 2nd preference referral to [facility] in [place]. Pt will need to be sitter free for 24 hours prior to final SNF consideration. PASCUAL [place] Addendum: 09/30/16 at 1415 by HERMILO MACEDO Floor SCIENTIST spoke with Nathaniel Mazariegos, pt's son, by phone (home # , cell # [phone]) regarding discharge plan and eventual jail care needs. SW encouraged pt's son to travel to [facility] to support pt through transition. Pt's son unable to travel to until next week due to job constraints. Pt's son states his father has funds available for LTC options (potentially) but son likely unable to access funds at this time. SW encouraged son to confirm this with bank. SW informed pt of multiple long term care phlebotomist care options: respite beds at [facility], financial implications of respite care ($250-300 per day), private pay dementia care, referral to [facility] in [place]. Pt's son states understanding of situation, though he is unwilling to make firm decisions regarding plan at this time. SEVERO will continue to follow. MAIN Major
--- NOTE | 2016-09-30 14:02 | PCM.PNPSY ---
Subjective Date of Service Sep 30, 2016 Cyndi Johnson could not participate in any kind of conversation today. He appeared confused, lethargic and disoriented. He is a poor historian and his cognitive function is so impaired that at this point that his judgment and insight and impulse control are all severely impaired. The Staff reports that he had been attempting to get up and walk around but is unable to do so due to lethargy and poor balance. He continues to appear sedated and is having trouble feeding himself, urinating , and walking. Patient was not able to identify his medications or what they were used to treat. Current Medications Current Medications Calcitonin [place] 1 spray DAILY NASAL Last administered on 09/29/16 13:38; Admin Dose 1 SPRAY; Start 09/29/16 at 12:55 Dextrose/Water 1,000 ml @ 250 mls/hr Q4H IV Last administered on 09/30/16 08: 45; Admin Dose 250 MLS/HR; Start 09/30/16 at 07:15; Stop 09/30/16 at 11:51; Status DC Lisinopril 10 mg DAILY PO Last administered on 09/29/16 08:21; Admin Dose 10 MG ; Start 09/28/16 at 14:03 Olanzapine 10 mg 10 mg PRN PRN IM Last administered on 09/30/16 02:33; Admin Dose 10 MG; Start 09/29/16 at 12:55 Quetiapine Fumarate 12.5 mg 1830,1930,2030,2130 PO Last administered on 17:18; Admin Dose 12.5 MG; Start 09/28/16 at 18:30; Stop 09/30/16 at 07:20 ; Status DC Sodium Chloride 1,000 ml @ 100 mls/hr Q10H IV Last administered on 09/29/16 23 :32; Admin Dose 100 MLS/HR; Start 09/29/16 at 12:55; Stop 09/30/16 at 07:17; Status DC Mental Status Exam Vital Signs Vital Signs Date Time Temp Pulse Resp B/P Pulse Ox O2 Delivery O2 Flow Rate FiO2 09/30/16 08:40 36.6 93 20 150/67 99 Room Air Appearance: Unkept, Disheveled Attitude: Uncooperative Behavior: Distractible, Other Affect: Restricted, Blunted, Flat Mood: Dysthymic Thought Process/Associations: Other (sedated) Speech Production: Mumbled Speech Rate: Lags/Latency Speech Articulation: Slurred Thought Content: Negativistic Danger to Self/Suicidal Ideati: None Danger to Others: None Delusions: Other (patient not exhibiting delusional themes ) Consciousness: Somnolent, Lethargic Orientation: Person Memory: Short Term Memory (Impaired) Estimate Intellectual Function: Above Average Basis for IQ estimate: Awareness current events, Word use/vocabulary, Educational history, Employment history Attention/Concentration & Cogn: Impaired Insight: Limited Judgement: Limited Result Diagram: 09/25/16 0455 09/30/16 3638 Mental Health Plan 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 He has a history of bipolar mood disorder, and has been well managed on low-dose lithium. He presented to the ED after good samaritans found him wandering lost and confused in the [place] area. He had driven down from [place] and was looking for an apartment. He appeared disoriented and confused. Client does not appear to be in an acute manic or psychotic state at this time. He appears to be suffering either from a delirium or a dementia. [place] AXIS I Neurocognitive disorder unspecified Rule out reversible causes of delirium. Rule out dementia history of bipolar mood disorder. AXIS II Defer. AXIS III 1. Encephalopathy. 2. Chronic kidney disease. 3. Benign prostatic hypertrophy. 4. History of pulmonary embolism. AXIS IV Moderate, due to homelessness. AXIS V Current global assessment of functioning equal to 20. Treatments Patient is being provided with safety through the use of a sitter to provide structure and active adult engagement. We will attempt to identifying stressors that may have led to current episode. We will attempt to: Maintain in a closely monitored and structured unit Provide low-stimulation environment Obtain collateral data to assist in treatment planning Decrease frequency of relapse and need for re-hospitalization Establish a consistent sleep pattern Medication effective in stabilization of mood and/or thought process Reduce the risk of imminent harm to self and/or others by providing a safe environment Tolerates medication without side effects Recommend: 1-Client have a sitter until transfer to a detention home facility can be arranged. Client will need help from social work to connect with family regarding funding sources. 2- Rule out potentially reversible causes of dementia prior to discharge 3- Could consider a trial of Aricept 5 mg daily for memory enhancement (one concern would be the exacerbation of prostate symptoms) Try to get a calender, a notepad and some of his personal items to help to develop a structured calm environment 4- Client currently does not have mental capacity to make medical or housing decisions due to due to a general medical condition 5- rec dc seroquel, and use low dose scheduled klonopin .5mg bid if he can tolerate without becoming disinhibited or overly sedated. 6- rec risperdal hs (1mg) only if he is showing signs of psychosis (at this point he is either irritable, confused or sedated but is not showing psychotic symptoms). 7- Pt's family is motivated for helping him find a SNHF 8- I will follow with you through the weekend Bola Johns MD Sep 30, 2016 14:02
[2016-09-30 15:54] VITALS: BP 134/79; PULSE 95; RESP 20; O2SAT 98
--- NOTE | 2016-09-30 16:53 | NUR ---
Medications/Activity Pt still refusing PO medications or fluids and MD aware. Pt has not talked during shift other than to say "no" when asked about taking PM heparin dose. Pt up to BS and to get cleaned up and only does minimal weight bearing, 2 people needed to get him into recliner. Pt has slept most of shift and been appropriate with care. Only had minimal agitation this AM when bedding was straightened. IV saline locked. Feldman in place and draining to gravity. Addendum: 09/30/16 at 1700 by SAM PRIEST RN Per okay to not do Q6 BG when pt is NPO, since it would probably increase agitation and he was on D5 IV fluids most of day.
[2016-09-30 19:33] VITALS: BP 135/75; PULSE 96; RESP 20; O2SAT 97
[2016-10-01] MEDS: Heparin 5,000 Unit/mL Inj SUBQ SCH ×3 (01:12→17:11)
[2016-10-01 04:06] VITALS: BP 128/76; PULSE 87; RESP 20; O2SAT 96
--- NOTE | 2016-10-01 05:53 | NUR ---
Meds/Activity Pt refused all PO meds. "No." In the beginning of the shift the patient appeared to be a little restless until he fell asleep. Pt cooperative with care and asked, "What happened to me? Pt educated on admission status and he stated, " Oh really." Pt seemed to have more clarity throughout the night and was cooperative with Heparin injection and lab draw. Patient requested apple juice and it was given thickened while the bed was in [place]'s position. No swallowing or choking observed. "I got it down." Patient continues with 1:1 sitter. No behavioral issues noted this shift. Care ongoing.
[2016-10-01] MEDS: Calcitonin 200 IU 3.7 mL Nasal Spray NASAL SCH (10:30)
[2016-10-01] MEDS: Senna-Docusate 8.6-50 mg Tablet PO SCH (10:31)
[2016-10-01] MEDS: Lactulose 20 Gm/30 mL 30 mL Syrup PO SCH ×3 (10:31→20:06)
[2016-10-01 13:00] VITALS: BP 103/71; PULSE 95; RESP 18; O2SAT 98
--- NOTE | 2016-10-01 13:05 | PCM.PNPSY ---
Subjective Date of Service Oct 01, 2016 Cyndi Johnson was demonstrating improved thought organization today. He appeared significantly less confused, lethargic and disoriented from Tuesday and . He is a poor historian at baseline due to what I suspect is early stage dementia. He denied psychiatric review of systems for adry depression or psychosis. He asked that the social work team contact his son regarding help with housing and disposition. He spoke clearly and cogently about his recent life in [place] and hoping to find an assisted living apartment Current Medications Current Medications Citalopram Hydrobromide 20 mg DAILY PO Last administered on 10/01/16 10:30; Admin Dose 20 MG; Start 09/30/16 at 08:30 Dextrose/Water 1,000 ml @ 250 mls/hr Q4H IV Last administered on 09/30/16 08: 45; Admin Dose 250 MLS/HR; Start 09/30/16 at 07:15; Stop 09/30/16 at 11:51; Status DC Tamsulosin HCl 0.8 mg 0.8 mg DAILY PO Last administered on 10/01/16 10:31; Admin Dose 0.8 MG; Start 09/30/16 at 08:30 Mental Status Exam Appearance: Unkept Attitude: Pleasant, Cooperative Behavior: Distractible Affect: Restricted Mood: Euthymic Thought Process/Associations: Goal Directed, Circumstantial Speech Production: Normal Speech Rate: Lags/Latency Speech Articulation: Normal Thought Content: Negativistic, Other (poverty of thought) Danger to Self/Suicidal Ideati: None Danger to Others: None Delusions: Other (patient not exhibiting delusional themes ) Consciousness: Alert Orientation: Person Memory: Short Term Memory (Impaired) Estimate Intellectual Function: Above Average Basis for IQ estimate: Awareness current events, Word use/vocabulary, Educational history, Employment history Attention/Concentration & Cogn: Impaired Insight: Limited Judgement: Limited Result Diagram: 09/25/16 0455 10/01/16 0459 Mental Health Plan 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 He has been retired in [place] for the past 10 years and had been doing relatively well. He has a history of bipolar mood disorder, and has been well managed on low-dose lithium. He presented to the ED after good samaritans found him wandering lost and confused in the [place] area. He had driven down from [place] and was looking for an apartment. Alex showed a marked improvement in thought organization and ability to communicate Since recent medications were changed. Client does not appear to be in an acute manic or psychotic state at this time. He appears to be suffering either from a delirium or a dementia condition. Gary AXIS I Neurocognitive disorder unspecified Rule out reversible causes of delirium. Rule out dementia history of bipolar mood disorder. AXIS II Defer. AXIS III 1. Encephalopathy. 2. Chronic kidney disease. 3. Benign prostatic hypertrophy. 4. History of pulmonary embolism. AXIS IV Moderate, due to homelessness. AXIS V Current global assessment of functioning equal to 25. Treatments Patient is being provided with safety through the use of a sitter to provide structure and active adult engagement. We will attempt to identifying stressors that may have led to current episode. We will attempt to: Maintain in a closely monitored and structured unit Provide low-stimulation environment Obtain collateral data to assist in treatment planning Decrease frequency of relapse and need for re-hospitalization Establish a consistent sleep pattern Medication effective in stabilization of mood and/or thought process Reduce the risk of imminent harm to self and/or others by providing a safe environment Tolerates medication without side effects Recommend: 1-Client will need help from social work to connect with family regarding funding sources. His son Nathaniel living in [place] was very open to help. His phone numbers and my H&P. 2- Rule out potentially reversible causes of dementia prior to discharge 3- Could consider a trial of Aricept 5 mg daily for memory enhancement (one concern would be the exacerbation of prostate symptoms) Try to get a calender, a notepad and some of his personal items to help to develop a structured calm environment 4- Client currently does not have mental capacity to make medical or housing decisions due to due to a general medical condition 5- rec use low dose scheduled klonopin .5mg bid if he can tolerate without becoming disinhibited or overly sedated. 6- rec risperdal hs (1mg) only if he is showing signs of psychosis (at this point he is either irritable, confused or sedated but is not showing psychotic symptoms). 7- Pt's family is motivated for helping him find a SNF 8- I will follow with you through the weekend Bola Johns MD Oct 01, 2016 13:05
[2016-10-01] MEDS ORDERED: Calcitonin 200 unit/mL 2mL Inj IM SCH (13:15)
--- NOTE | 2016-10-01 13:25 | PCM.PNMED ---
Subjective Date of Service Oct 01, 2016 Subjective No complaints of chest pain, dyspnea, nausea or vomiting. When I ask him how he is doing he says "not too well". He is not very specific about what bothers him. When I try and inquire a little more specifically he accuses me of being hostile, and then when I ask him some more questions he says "you are what they call a bastard" at which point in time I excused myself Exam Vital Signs Vital Sign - Last Date Time Temp Pulse Resp B/P Pulse Ox O2 Delivery O2 Flow Rate FiO2 10/01/16 04:06 36.3 87 20 128/76 96 Room Air Intake and Output 09/30/16 09/30/16 10/01/16 Cumulative From/Thru 15:00 23:00 07:00 09/24/16 15:21 - 10/01/16 05:47 Intake Total 1340 ml 0 ml 400 ml 9550 ml Output Total 1400 ml 800 ml 17293 ml Balance 1340 ml -1400 ml -400 ml -6590 ml Intake Oral 0 ml 400 ml 4246 ml IV Total 1340 ml 5304 ml Output Urine Total 1400 ml 800 ml 23241 ml # Voids 3 # Bowel Movements 0 1 Exam Gen.-Thin elderly male lying in bed, he is oriented times 2-3 in no side along he has been in the hospital. He is agreeable to working with physical therapy Eyes-eyes open conjunctiva clear, no discharge ENT- ears normal, nose normal Neck- supple/trach midline CVS-normal rate Lungs-respirations regular and nonlabored GI-flat Musc- moving 4 no obvious deformity Neuro- cranial nerves II through XII intact to gross examination, nonfocal Skin- warm and dry, no rashes/lesions/wounds noted Psych- other than the name-calling at the end the patient was actually pretty reasonable although was very hard to keep him focused on a topic and get a specific answer. Lab and Diagnostics Result Diagram: 09/25/16 0455 10/01/16 0459 X-Rays, CTs and MRIs CT 09/23 [facility] showed constipation/obstipation no pancreatitis Assessment & Plan 75-year-old homeless male presents 09/24 confused with abdominal pain. I believe I heard about this patient at [facility] in the emergency room and the plan had been to send him to [facility] for a psychiatric bed. Instead somehow [place] [address] [place] house to house when police were called and he was brought here to [facility]. Reportedly his car was broken down when he presented to [facility] 09/23. 09/27 meeting patient for first day. He is confused and ambulatory. I am stopping aspirin as there is no history of heart disease or cerebrovascular disease and history of pulmonary embolism is accurate this is not adequate therapy. He was started on a statin also for unclear reasons this was stopped as his LDL is 58, HDL was 40. Again no heart disease no cerebrovascular disease no indication. 09/28 patient is impulsive and needs redirection, plan to discharge him to [facility] SNF but he needs psychiatry consult and not to have to sitter for 24 hours. To that end we will start him on Seroquel as needed and in the evening when he becomes a little more difficult. Message left with son Nathaniel. 09/29 patient seems to be deteriorating and becoming more paranoid. I spoke with his son Nathaniel as well as primary care provider Dr Tre Obrien , they have been worried about his deteriorating dictation for months. He does have episodes where he speaks aggressively and has landed in custodial but he has never acted on any of these aggressive behaviors. Starting IV fluids, calcitonin, increasing Flomax and adding finasteride. Psychiatry revisit appreciated. 09/30 patient not engaging anybody anymore, not eating not taking anything by mouth. We will contact son as well as primary care provider perhaps they can call and speak to the patient and elicit more cooperation. Monitoring calcium and sodium giving IV fluids accordingly. 10/01 other than name-calling patient is pretty agreeable. I think he is going to work with physical therapy. Sodium is marginal, I think he is taking fluids by mouth, his calcium is going up so I am starting 1/2NS 100 in our to run at least overnight and continuing nasal calcitonin in the hope that this controls his calcium long-term as it is almost certainly a result of lithium and we cannot discontinue this. Psychiatry will continue to follow through the weekend thank you. Complete metabolic panel, CBC, B12, and repeat ammonia are ordered 10/02 in a.m. #Hypernatremia-patient not taking by mouth I gave him a liter of D5 water will check again in a.m. 09/30, NA 145 starting 07/05 NS checking labs again in the morning 10/01 #Bipolar disease- therapeutic on lithium he has been tried on other medications with disastrous results. He has been on lithium long-term and this is the only thing that has stabilized him according to PCP -Condition deteriorating adding when necessary IM olanzapine 09/29 -try and wean sitter 09/28, stopped as per psyc rec 09/30, trying Klonopin 0.5 mg twice a day when necessary as per psych rec 09/30 -[place] low at 0.5 increasing dose to 3 times a day 10/01 -Thank you Dr. Johns following #Urinary retention #BPH- incomplete bladder emptying, -Flomax 0.4mg on admit, increased to 0.8 and add finasteride 09/29 [place] catheter - #hypercalcemia- baseline 10.3 with normal albumin, 11.2 and rising 09/29, 10.6 -- lithium from psychiatric standpoint this cannot be discontinued, we will try and manage with it -PTH 55 inappropriately high normal in setting of hypercalcemia -IVF, calcitonin 09/29, 10/01 #Metabolic encephalopathy/dementia -ammonia 77, we will start lactulose 09/27, CT of the abdomen and pelvis from [facility] did not discuss possible cirrhosis -Psychiatry consult recommends ruling out reversible causes which I think has been done by PCP requesting records 09/28 -Hypercalcemia may be contributing may be secondary to lithium, this cannot be discontinued according to PCP in son has been tried with disastrous results. #CKD3? -Cr 1.4 . To be about baseline -[place] versus BPH, monitor #Abdominal pain seems resolved but hard to say 09/29 patient not speaking or eating 09/30 -Pancreatitis posited, seems dobutful, lipase slightly elevated, CT scan not revealing other than constipation. Patient tolerating food. -Hypercalcemia may be contributing #Hx pulmonary embolism hx-embolectomy procedure? Diet: Dysphagia mechanical DVT prophylaxis heparin scd ambulate, Appreciate social media project manager help, patient currently homeless since losing was not at a temporary motel. PT rec snf, to d/w pt/son Code full Disposition inpt status Nathaniel (son): , Patient medically stable to discharge to SNF or 2 psychiatric unit GI Prophylaxis: H2 jad VTE Prophylaxis: Sub-Q Heparin (Unfractionated) Resuscitation Status: CPR: Attempt Resuscitation Sanjay Champion MD Oct 01, 2016 13:25
--- NOTE | 2016-10-01 14:45 | NUR ---
Sitter: Sitter pulled from Patient at 0700 am on 10/01. Pt has been ok without sitter today.
--- NOTE | 2016-10-01 16:02 | NUR ---
ZHOU verbally signed by pt's NOK as pt is unable to make medical decisions at this time. Massiel Rhodes MSW
--- NOTE | 2016-10-01 16:48 | NUR ---
Behavior/Meds Pt remains confused with moments of clarity, soft spoken. No issues with threatening to leave. Bed alarm has been in place. Attempted to get pt food as he had been NPO for multiple days. Poor hand-eye coordination. A couple of times had to be reminded on how to drink with the use of a straw. Difficulty also d/t tremor. Care continues. Meds: Pt still receiving Kayexalate. At first, accepting, after several sips from a straw pt then frightened and appearing to be in pain. Eyes widened and gave the impression as though he was unable to take a breath - stressed. Pt then swallowed his mouthful of Kayexlate and stated "no more," because "it's hot," "it burned by mouth - it was hot." Pt took 3/4 of the dose. Later, dose mixed in with applesauce - care continues. Addendum: 10/02/16 at 0722 by GIGI GUEVARA RN CORRECTION: PT RECEIVED LACTULOSE, NOT KAYEXALATE.
[2016-10-01 19:44] VITALS: BP 101/69; PULSE 91; RESP 18; O2SAT 98
[2016-10-02] MEDS: Heparin 5,000 Unit/mL Inj SUBQ SCH ×3 (00:34→16:10)
--- NOTE | 2016-10-02 03:29 | NUR ---
Activity/Behavior Patient in bed almost all of shift. Tried to get up by himself once this shift so far. Easily redirected back into bed. [place] alarm in place for safety. Has been pleasant and cooperative with care. Took all medications without issue.
[2016-10-02 04:52] VITALS: BP 115/72; PULSE 72; RESP 18; O2SAT 95
[2016-10-02 05:20] LABS: BASOPHILS % (AUTO) 0.1 % (0-3); EOSINOPHILS % (AUTO) 0.1 % (0-5); MONOCYTES % (AUTO) 6.8 % (4-12); Mean Corpuscular Hemoglobin 33.5 pg (27.0-35.0); Mean Corpuscular Volume 102.6 fL (81-100); Platelet Count 165 bil/L (150-400)
[2016-10-02] MEDS: Senna-Docusate 8.6-50 mg Tablet PO SCH (10:03)
[2016-10-02] MEDS: Lactulose 20 Gm/30 mL 30 mL Syrup PO SCH ×3 (10:04→20:06)
[2016-10-02] MEDS: Calcitonin 200 IU 3.7 mL Nasal Spray NASAL SCH (10:05)
--- NOTE | 2016-10-02 11:54 | PCM.PNMED ---
Subjective Date of Service Oct 02, 2016 Subjective No complaints, no chest pain shortness of breath, fevers or chills. Looking into placement as patient apparently has had a reduction in his balance when working with physical therapy and is a [facility] facility candidate. Apparently son will be flying in this Tuesday to the [place] area who remains to patient's primary family contact. Exam Vital Signs Vital Sign - Last Date Time Temp Pulse Resp B/P Pulse Ox O2 Delivery O2 Flow Rate FiO2 10/02/16 04:52 36.6 72 18 115/72 95 Room Air Intake and Output 10/01/16 10/01/16 10/02/16 Cumulative From/Thru 15:00 23:00 07:00 09/24/16 15:21 - 10/02/16 06:05 Intake Total 877 ml 1829 ml 22838 ml Output Total 800 ml 575 ml 91426 ml Balance 77 ml 1254 ml -5259 ml Intake Oral 400 ml 350 ml 4996 ml IV Total 477 ml 1479 ml 7260 ml Output Urine Total 800 ml 575 ml 77865 ml # Voids 3 # Bowel Movements 1 0 2 Exam Gen.-Thin elderly male lying in bed, he is oriented times 2-3, pleasant soft- spoken Eyes-eyes open conjunctiva clear, no discharge ENT- ears normal, nose normal Neck- supple/trach midline CVS-normal rate Lungs-respirations regular and nonlabored GI-flat Musc- moving 4 no obvious deformity Neuro- cranial nerves II through XII intact to gross examination, nonfocal Skin- warm and dry, no rashes/lesions/wounds noted Psych-flat affect, mildly depressed mood, some tangential thoughts IVs and Medications Medications Reviewed: Medications were reviewed in detail Lab and Diagnostics Result Diagram: 10/02/1651210/02/16512 X-Rays, CTs and MRIs CT 09/23 [facility] showed constipation/obstipation no pancreatitis Assessment & Plan 75-year-old homeless male presents 09/24 confused with abdominal pain. I believe I heard about this patient at [facility] in the emergency room and the plan had been to send him to [facility] for a psychiatric bed. Instead [place] [address] [place] house when police were called and he was brought here to [facility]. Reportedly his car was broken down when he presented to [facility] 09/23. 09/27 meeting patient for first day. He is confused and ambulatory. I am stopping aspirin as there is no history of heart disease or cerebrovascular disease and history of pulmonary embolism is accurate this is not adequate therapy. He was started on a statin also for unclear reasons this was stopped as his LDL is 58, HDL was 40. Again no heart disease no cerebrovascular disease no indication. 09/28 patient is impulsive and needs redirection, plan to discharge him to [facility] but he needs psychiatry consult and not to have to sitter for 24 hours. To that end we will start him on Seroquel as needed and in the evening when he becomes a little more difficult. Message left with son Nathaniel. 09/29 patient seems to be deteriorating and becoming more paranoid. I spoke with his son Nathaniel as well as primary care provider Dr Tre Obrien [phone], they have been worried about his deteriorating dictation for months. He does have episodes where he speaks aggressively and has landed in longterm but he has never acted on any of these aggressive behaviors. Starting IV fluids, calcitonin, increasing Flomax and adding finasteride. Psychiatry revisit appreciated. 09/30 patient not engaging anybody anymore, not eating not taking anything by mouth. We will contact son as well as primary care provider perhaps they can call and speak to the patient and elicit more cooperation. Monitoring calcium and sodium giving IV fluids accordingly. 10/01 other than name-calling patient is pretty agreeable. I think he is going to work with physical therapy. Sodium is marginal, I think he is taking fluids by mouth, his calcium is going up so I am starting 1/2NS 100 in our to run at least overnight and continuing nasal calcitonin in the hope that this controls his calcium long-term as it is almost certainly a result of lithium and we cannot discontinue this. Psychiatry will continue to follow through the weekend thank you. Complete metabolic panel, CBC, B12, and repeat ammonia are ordered 10/02 in a.m. #Hypernatremia-patient not taking by mouth, status post liter of D5 water will check again in a.m. 09/30, NA 145 starting 1/2 NS checking labs again in the morning 10/01 #Bipolar disease- therapeutic on lithium he has been tried on other medications with disastrous results. He has been on lithium long-term and this is the only thing that has stabilized him according to PCP -Condition deteriorating adding when necessary IM olanzapine 09/29 -try and wean sitter 09/28, stopped as per psyc rec 09/30, trying Klonopin 0.5 mg twice a day when necessary as per psych rec 09/30 -[place] low at 0.5 increasing dose to 3 times a day 10/01 -Thank you Dr. Johns following #Urinary retention #BPH- incomplete bladder emptying, -Flomax 0.4mg on admit, increased to 0.8 and add finasteride 09/29 Feldman catheter - #hypercalcemia- baseline 10.3 with normal albumin, 11.2 and rising 09/29, 10.6 -- lithium from psychiatric standpoint this cannot be discontinued, we will try and manage with it -PTH 55 inappropriately high normal in setting of hypercalcemia -IVF, calcitonin 09/29, 10/01 #Metabolic encephalopathy/dementia -ammonia 77, we will start lactulose 09/27, CT of the abdomen and pelvis from [facility] did not discuss possible cirrhosis -Psychiatry consult recommends ruling out reversible causes which I think has been done by PCP requesting records 09/28 -Hypercalcemia may be contributing may be secondary to lithium, this cannot be discontinued according to PCP in son has been tried with disastrous results. #CKD3? -Cr 1.4 . To be about baseline -[place] versus BPH, monitor #Abdominal pain seems resolved but hard to say 09/29 patient not speaking or eating 09/30 -Pancreatitis posited, seems dobutful, lipase slightly elevated, CT scan not revealing other than constipation. Patient tolerating food. -Hypercalcemia may be contributing #Hx pulmonary embolism hx-embolectomy procedure? Diet: Dysphagia mechanical DVT prophylaxis heparin scd ambulate, Appreciate social services technician help, patient currently homeless since losing was not at a temporary motel. PT rec snf, to d/w pt/son Code full Disposition inpt status Nathaniel (son): , Patient medically stable to discharge to SNF - placement pending possibly in 1- 2 days Pain Evaluation: Adequate Pain Control GI Prophylaxis: H2 jad VTE Prophylaxis: Sub-Q Heparin (Unfractionated) Resuscitation Status: CPR: Attempt Resuscitation Time spent 35 minutes spent with evaluation maintenance patient Khurram Morales DO Oct 02, 2016 11:48
[2016-10-02] MEDS ORDERED: 0.9% Sodium Chloride 500 ML IV ONE (15:10)
[2016-10-02 15:41] VITALS: PULSE 74
--- NOTE | 2016-10-02 16:02 | NUR ---
Social Work Note-Continued d/c planning D/A: EMR review for this patient on day 8 of admission. Psychiatry continues to follow. Sitter D/C from pt 10/01 at 0700. Pt continues to have poor oral intake and a decrease in verbal engagement. Per RN notes, pt cooperative with care. PT evaluated pt today, recommending SNF as "pt with decreased balance then when previously seen demonstrating significant posterior lean in standing, tremulous with movement and not safe to ambulate at this time." [place] lab drawn, pt's [place] level has risen from (.5) 09/27 to (1.0) 10/02. Anticipate patient will have correction needs at discharge for his hypercalcemia and medication management. SEVERO spoke with Shelley at [facility] regarding SNF referral, Shelley states they are unable to take pt at this time. SEVERO spoke with Beena at [facility] regarding referral, Beena to meet with medical assistant dermatology and manager mortgage Tuesday morning. SEVERO spoke with admissions at [facility] regarding SNF referral, [facility] to review pt. Faxed [facility] to both facilities. Both facilities have access to pt's clinicals. SW received call from pt's daughter in law regarding laborer marine terminal care planning, next steps after hospitalization. Pt's son to fly to [place] on Tuesday, continue to pursue fpc care plan and placement after SNF. SW answered dtr-in-law's questions to apparent satisfaction. Pt's son does not have financial DPOA at this time. SW awaits follow up and decisions from SNF referrals 1) [facility] and 2) [facility]. SW will continue to follow. Plan: Psychiatry continues to follow. [facility] has denied pt for SNF at this time. Referrals made to [facility] and [facility]. SW awaits follow up and decisions from SNF referrals 1) [facility] and 2) [facility]. SW will continue to follow. MAIN Major
[2016-10-02 16:04] VITALS: BP 152/81; PULSE 74; RESP 16; O2SAT 98
--- NOTE | 2016-10-02 19:24 | NUR ---
Vasovagal/Rapid Response At 1450, pt up to BSC with INK BLENDER. building construction engineer present to assist, minutes later Rapid Response called d/t pt being unresponsive, did not lose consciousness. Per building construction engineer, Pupils pinpoint, pale in color and no strength to keep self upright. With assist of multiple staff, pt assisted back to bed. VS obtained - hypotensive and bradycardic. IVF bolus given. BG 99. Pt coming to and conversing. Later stating what had happened, stated, "...I strained." Telemetry placed and EKG ordered. Issue resolved with IVF and time, post bolus NS, back to IVF of 1/2NS at 80ml/hr. Dr. Morales to see pt. Continue to monitor.
[2016-10-02 20:06] VITALS: BP 164/104; PULSE 63; RESP 16; O2SAT 94
[2016-10-02 20:12] LABS: APPEARANCE,URINE CLEAR (CLEAR,HAZY); COLOR,URINE YELLOW (YELLOW); OCCULT BLOOD,URINE NEGATIVE (NEGATIVE); PH,URINE 6.5 (5.0-8.0); UROBILINOGEN,URINE NORMAL (NORMAL)
[2016-10-03] VITALS (10 sets, daily range): BP systolic 97–160; BP diastolic 69–90; PULSE 68–99; RESP 16–20; O2SAT 95–99
[2016-10-03] MEDS: Heparin 5,000 Unit/mL Inj SUBQ SCH ×3 (01:07→16:59)
--- NOTE | 2016-10-03 05:19 | NUR ---
Activity Pt has not been out of bed this shift, generalized weakness and has impaired prep room supervisor, assisted with PO intake with meds, no evidence of dysphagia. Elevated B/P treated with prn Hydralazine per eMAR parameters. Pt alert with intermittent confusion, easily reoriented to situation; bed alarm on for safety. Hourly rounding ongoing.
[2016-10-03 07:24] LABS: BASOPHILS % (AUTO) 0.2 % (0-3); EOSINOPHILS % (AUTO) 0.3 % (0-5); MONOCYTES % (AUTO) 9.6 % (4-12); Mean Corpuscular Hemoglobin 34.6 pg (27.0-35.0); Mean Corpuscular Volume 100.7 fL (81-100); NEUTROPHILS % (AUTO) 80.7 % (40-74); Platelet Count 168 bil/L (150-400)
[2016-10-03] MEDS: Senna-Docusate 8.6-50 mg Tablet PO SCH (08:30)
[2016-10-03] MEDS ORDERED: 0.9% Sodium Chloride 0 ML ONE (11:18)
[2016-10-03] MEDS: Famotidine Inj 20 MG in IV Premix 1 EACH IV SCH ×2 (11:23→22:04)
[2016-10-03] MEDS: Lactulose 20 Gm/30 mL 30 mL Syrup PO SCH ×3 (11:28→22:04)
[2016-10-03] MEDS: Calcitonin 200 IU 3.7 mL Nasal Spray NASAL SCH (11:39)
--- NOTE | 2016-10-03 11:39 | PCM.PNMED ---
Subjective Date of Service Oct 03, 2016 Subjective Events overnight, no sitter needed last night. Patient denies chest pain, fever , chills, shortness of breath Exam Vital Signs Vital Sign - Last Date Time Temp Pulse Resp B/P Pulse Ox O2 Delivery O2 Flow Rate FiO2 10/03/16 11:04 36.8 78 20 138/79 97 Room Air Intake and Output 10/02/16 10/02/16 10/03/16 Cumulative From/Thru 15:00 23:00 07:00 09/24/16 15:21 - 10/03/16 06:22 Intake Total 1705 ml 2117 ml 04021 ml Output Total 550 ml 2450 ml 70762 ml Balance 1155 ml -333 ml -4437 ml Intake Oral 400 ml 1250 ml 6646 ml IV Total 1305 ml 867 ml 9432 ml Output Urine Total 550 ml 2450 ml 21300 ml # Voids 3 # Bowel Movements 2 1 5 Exam Gen.-Thin elderly male lying in bed, he is oriented times 1, pleasant soft- spoken Eyes-eyes open conjunctiva clear, no discharge ENT- ears normal, nose normal Neck- supple/trach midline CVS-normal rate Lungs-respirations regular and nonlabored GI-flat Musc- moving 4 no obvious deformity Neuro- cranial nerves II through XII intact to gross examination, nonfocal Skin- warm and dry, no rashes/lesions/wounds noted Psych-flat affect, mildly depressed mood, some tangential thoughts IVs and Medications Medications Reviewed: Medications were reviewed in detail Lab and Diagnostics Result Diagram: 10/03/16 0530 10/03/16 0530 X-Rays, CTs and MRIs CT 09/23 [facility] showed constipation/obstipation no pancreatitis Assessment & Plan 75-year-old homeless male presents 09/24 confused with abdominal pain. I believe I heard about this patient at [facility] in the emergency room and the plan had been to send him to [facility] for a psychiatric bed. Instead [place] [address] [place] house when police were called and he was brought here to [facility]. Reportedly his car was broken down when he presented to [facility] 09/23. 09/27 meeting patient for first day. He is confused and ambulatory. I am stopping aspirin as there is no history of heart disease or cerebrovascular disease and history of pulmonary embolism is accurate this is not adequate therapy. He was started on a statin also for unclear reasons this was stopped as his LDL is 58, HDL was 40. Again no heart disease no cerebrovascular disease no indication. 09/28 patient is impulsive and needs redirection, plan to discharge him [facility] but he needs psychiatry consult and not to have to sitter for 24 hours. To that end we will start him on Seroquel as needed and in the evening when he becomes a little more difficult. Message left with son Nathaniel. 09/29 patient seems to be deteriorating and becoming more paranoid. I spoke with his son aNthaniel as well as primary care provider Dr Tre Obrien [phone], they have been worried about his deteriorating dictation for months. He does have episodes where he speaks aggressively and has landed in [facility] but he has never acted on any of these aggressive behaviors. Starting IV fluids, calcitonin, increasing Flomax and adding finasteride. Psychiatry revisit appreciated. 09/30 patient not engaging anybody anymore, not eating not taking anything by mouth. We will contact son as well as primary care provider perhaps they can call and speak to the patient and elicit more cooperation. Monitoring calcium and sodium giving IV fluids accordingly. 10/01 other than name-calling patient is pretty agreeable. I think he is going to work with physical therapy. Sodium is marginal, I think he is taking fluids by mouth, his calcium is going up so I am starting 1/2NS 100 in our to run at least overnight and continuing nasal calcitonin in the hope that this controls his calcium long-term as it is almost certainly a result of lithium and we cannot discontinue this. Psychiatry will continue to follow through the weekend thank you. Complete metabolic panel, CBC, B12, and repeat ammonia are ordered 10/02 in a.m. #Hypernatremia- improved, status post liter of D5 water will check again in a.m. 09/30, NA 145 starting 1/2 NS checking labs again in the morning 10/01. #Bipolar disease- - therapeutic on lithium he has been tried on other medications with poor results. He has been on lithium long-term and this is the only thing that has stabilized him according to PCP -Condition deteriorating adding when necessary IM olanzapine 09/29 -try and wean sitter 09/28, stopped as per psyc rec 09/30, trying Klonopin 0.5 mg twice a day when necessary as per psych rec 09/30 -[place] low at 0.5 increasing dose to 3 times a day 10/01 -Thank you Dr. Johns following #Urinary retention #BPH- incomplete bladder emptying, -Flomax 0.4mg on admit, increased to 0.8 and add finasteride 09/29 Feldman catheter - #hypercalcemia- baseline 10.3 with normal albumin, 11.2 and rising 09/29, 10.6 -- lithium from psychiatric standpoint this cannot be discontinued, we will try and manage with it -PTH 55 inappropriately high normal in setting of hypercalcemia -IVF, calcitonin 09/29, 10/01 #Metabolic encephalopathy/dementia -ammonia 75, we will start lactulose 09/27, CT of the abdomen and pelvis from [facility] did not discuss possible cirrhosis -Psychiatry consult recommends ruling out reversible causes which I think has been done by PCP requesting records 09/28 -Hypercalcemia may be contributing may be secondary to lithium, this cannot be discontinued according to PCP in son has been tried with disastrous results. #CKD3? -Cr 1.4 . To be about baseline -[place] versus BPH, monitor #Abdominal pain seems resolved but hard to say 09/29 patient not speaking or eating 09/30 -Pancreatitis posited, seems dobutful, lipase slightly elevated, CT scan not revealing other than constipation. Patient tolerating food. -Hypercalcemia may be contributing #Hx pulmonary embolism hx-embolectomy procedure? Diet: Dysphagia mechanical DVT prophylaxis heparin scd ambulate, Appreciate social work therapist help, patient currently homeless since losing was not at a temporary motel. PT rec snf, to d/w pt/son Code full Disposition inpt status Nathaniel (son): , Patient medically stable to discharge to SNF - placement pending possibly in 1- 2 days GI Prophylaxis: H2 jad VTE Prophylaxis: Sub-Q Heparin (Unfractionated) Resuscitation Status: CPR: Attempt Resuscitation Time spent 35 minutes spent with evaluation and management Khurram Morales DO Oct 03, 2016 11:39
--- NOTE | 2016-10-03 12:21 | PCM.PNPSY ---
Subjective Date of Service Oct 03, 2016 Cyndi Johnson was demonstrating improved thought organization again today. I told him that I was off for the next week and he shakes my hand and thanked me for the work that we have done together. He appeared significantly less confused, lethargic and disoriented from today. He is a poor historian at baseline due to what I suspect is early stage dementia. He denied psychiatric review of systems for adry depression or psychosis. He asked that the social work team contact his son regarding help with housing and disposition. He spoke clearly and cogently about his recent life in [place] and hoping to find an assisted living apartment Looking forward to his son Nathaniel coming on Tuesday. Current Medications Current Medications Calcium Carbonate 500 mg 500 mg ONCE ONCE PO Last administered on 10/02/16 23: 02; Admin Dose 500 MG; Start 10/02/16 at 22:55; Stop 10/02/16 at 22:59; Status DC Famotidine/Sodium Chloride/Premix 50 ml @ 100 mls/hr Q12 IV Last administered on 10/03/16 11:23; Admin Dose 100 MLS/HR; Start 10/03/16 at 10:16 [place] Carbonate 300 mg TID PO Last administered on 10/03/16 11:27; Admin Dose 300 MG; Start 10/01/16 at 14:30 Sodium Chloride 1,000 ml @ 80 mls/hr [id number] IV Last administered on 10/03/16 05:11; Admin Dose 80 MLS/HR; Start 10/01/16 at 13:15 Mental Status Exam Vital Signs Vital Signs Date Time Temp Pulse Resp B/P Pulse Ox O2 Delivery O2 Flow Rate FiO2 10/03/16 11:04 36.8 78 20 138/79 97 Room Air 10/03/16 08:25 82 10/03/16 06:22 36.9 94 20 113/69 99 Room Air 10/03/16 05:20 95 Appearance: Unkept Attitude: Pleasant, Cooperative Behavior: Distractible Affect: Restricted Mood: Euthymic Thought Process/Associations: Goal Directed, Circumstantial Speech Production: Normal Speech Rate: Lags/Latency Speech Articulation: Normal Thought Content: Appropriate, Other (poverty of thought) Danger to Self/Suicidal Ideati: None Danger to Others: None Delusions: Other (patient not exhibiting delusional themes ) Consciousness: Alert Orientation: Person Memory: Short Term Memory (Impaired) Estimate Intellectual Function: Above Average Basis for IQ estimate: Awareness current events, Word use/vocabulary, Educational history, Employment history Attention/Concentration & Cogn: Impaired Insight: Limited Judgement: Limited Result Diagram: 10/03/1652910/03/16529 Mental Health Plan 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 He has a history of bipolar mood disorder, and has been well managed on low-dose lithium. He presented to the ED after ujanito kong found him wandering lost and confused in the [place] area. He had driven down from [place] and was looking for an apartment. Alex showed a marked improvement in thought organization and ability to communicate Since recent medications were changed. Client does not appear to be in an acute manic or psychotic state at this time. He appears to be suffering either from a delirium or a dementia condition. Recommend continued supportive care and transferred to a snf as soon as possible [place] AXIS I Neurocognitive disorder unspecified Rule out reversible causes of delirium. Rule out dementia history of bipolar mood disorder. AXIS II Defer. AXIS III 1. Encephalopathy. 2. Chronic kidney disease. 3. Benign prostatic hypertrophy. 4. History of pulmonary embolism. AXIS IV Moderate, due to homelessness. AXIS V Current global assessment of functioning equal to 35. Treatments Patient is being provided with safety through the use of a sitter to provide structure and active adult engagement. We will attempt to identifying stressors that may have led to current episode. We will attempt to: Maintain in a closely monitored and structured unit Provide low-stimulation environment Obtain collateral data to assist in treatment planning Decrease frequency of relapse and need for re-hospitalization Establish a consistent sleep pattern Medication effective in stabilization of mood and/or thought process Reduce the risk of imminent harm to self and/or others by providing a safe environment Tolerates medication without side effects Recommend: 1-Client will need help from social work to connect with family regarding funding sources. His son Nathaniel living in [place] was very open to help. His phone numbers and my H&P. 2- Rule out potentially reversible causes of dementia prior to discharge 3- Could consider a trial of Aricept 5 mg daily for memory enhancement (one concern would be the exacerbation of prostate symptoms) Try to get a calender, a notepad and some of his personal items to help to develop a structured calm environment 4- Client currently does not have mental capacity to make medical or housing decisions due to due to a general medical condition 5- recommend continued medication regimen and transferred to a custodial home as soon as possible I will sign off at this time please call if you need further assistance. Bola Johns MD Oct 03, 2016 12:21
--- NOTE | 2016-10-03 14:51 | NUR ---
ZHOU signed. Massiel Rhodes CREAM BEATER
--- NOTE | 2016-10-03 16:08 | DRSVH ---
PROCEDURE: X-RAY CHEST ONE VIEW, PORTABLE ([id number]) INDICATIONS: ALTERED MENTAL STATUS/ ASPIRATION RISK TECHNIQUE: One view of the chest was acquired. COMPARISON: [facility], CR, XR CHEST 1VW (PORTABLE), 09/24/2016, 16:38. FINDINGS: Surgical changes and devices: None. Lungs and pleura: No pleural effusions or pneumothorax. Lungs are clear. Mediastinum: Mediastinal contours appear normal. Heart size is normal. Bones and chest wall: No suspicious bony lesions. Overlying soft tissues appear unremarkable. IMPRESSION: No acute process. Dictated by: Sneha Aaron M.D. on 10/03/2016 at 16:06 Approved by: Sneha Aaron M.D. on 10/03/2016 at 16:07
[2016-10-03 18:46] LABS: APPEARANCE,URINE CLEAR (CLEAR,HAZY); COLOR,URINE STRAW (YELLOW); OCCULT BLOOD,URINE LARGE (NEGATIVE); PH,URINE 6.5 (5.0-8.0); UROBILINOGEN,URINE NORMAL (NORMAL)
--- NOTE | 2016-10-03 19:37 | NUR ---
Orthostatic Hypotension/AMS Working with PT this afternoon pt BP went from 130/76 sitting to 97/69. MD aware, no order changes received. After this pt had visual hallucinations of people in the room and was less coherent with his mumbling. Chest xray ordered d/t aspiration risk which was negative and UA sent. Klonopin given and was effective with restlessness. Pt is now resting in bed comfortably.
[2016-10-04] VITALS (8 sets, daily range): BP systolic 94–159; BP diastolic 56–89; PULSE 58–82; RESP 16–18; O2SAT 96–99
[2016-10-04] MEDS: Heparin 5,000 Unit/mL Inj SUBQ SCH ×3 (00:40→16:38)
--- NOTE | 2016-10-04 03:44 | NUR ---
ACTIVITY Pt in bed all shift--keeping bedrest until PT clears. BP stable this shift. C/o generalized pain once, 1mg morphine given, effective. Unclear if pt having hallucinations, but pt does have delusions. Pt thought was upstairs and wanted RN to check on her. Pt thought he was in a house and had a temple meeting. Pt reoriented to hospital easily, explained pt unable to leave because of medical problems. Pt also thought he knew the president and told me about the conversation he had with him. Pt has not tried to get out of bed all shift. Pleasant with care. Took medications easily whole in pudding, no s/sx aspiration. Continuing care. Addendum: 10/04/16 at 0645 by NABEEL FRIAS RN Pt hallucinating this morning a girl in his bed. Pt put instructional supervisor light at 0630 and was seen trying to get out of bed and took off gown and dennys sleeve for IV. Pt stated "I have to pee. Orlando Singh the Bebe told me I could get up." Pt informed he has a catheter. RN and DETAIL DRAFTER readjusted in bed, gave warm blankets, and gave coffee.
[2016-10-04 05:07] LABS: BASOPHILS % (AUTO) 0.4 % (0-3); EOSINOPHILS % (AUTO) 2.9 % (0-5); MONOCYTES % (AUTO) 9.9 % (4-12); Mean Corpuscular Hemoglobin 34.6 pg (27.0-35.0); Mean Corpuscular Volume 103.4 fL (81-100); NEUTROPHILS % (AUTO) 71.8 % (40-74); Platelet Count 166 bil/L (150-400)
--- NOTE | 2016-10-04 07:05 | PCM.PNMED ---
Subjective Date of Service Oct 04, 2016 Subjective notably confused last evening - no acute complaints this AM. neg CXR yesterday , prev neg dopplers/echo. psych recomm aricept trial which I have started Exam Vital Signs Vital Sign - Last Date Time Temp Pulse Resp B/P Pulse Ox O2 Delivery O2 Flow Rate FiO2 10/04/16 05:43 37.0 69 16 144/89 97 Room Air Intake and Output 10/03/16 10/03/16 10/04/16 Cumulative From/Thru 14:59 22:59 06:59 09/24/16 15:21 - 10/04/16 05:43 Intake Total 1516 ml 1734 ml 55161 ml Output Total 1900 ml 1700 ml 61534 ml Balance -384 ml 34 ml -4787 ml Intake Oral 536 ml 750 ml 7932 ml IV Total 980 ml 984 ml 72385 ml Output Urine Total 1900 ml 1700 ml 60709 ml # Voids 3 # Bowel Movements 1 0 6 Exam Gen.-Thin elderly male lying in bed, he is oriented times 1, pleasant soft- spoken Eyes-eyes open conjunctiva clear, no discharge ENT- ears normal, nose normal Neck- supple/trach midline CVS-normal rate, no r/c/m/g Lungs-respirations regular and nonlabored GI- no tenderness, soft, no rebound Musc- moving 4 no obvious deformity Neuro- cranial nerves II through XII intact to gross examination, nonfocal Skin- warm and dry, no rashes/lesions/wounds noted Psych-flat affect, mildly depressed mood, some tangential thoughts IVs and Medications Medications Reviewed: Medications were reviewed in detail Lab and Diagnostics Result Diagram: 10/04/1644510/04/16445 X-Rays, CTs and MRIs CT 09/23 [facility] showed constipation/obstipation no pancreatitis Assessment & Plan 75-year-old homeless male presents 09/24 confused with abdominal pain. I believe I heard about this patient at [facility] in the emergency room and the plan had been to send him to [facility] for a psychiatric bed. Instead [place] [address] [place] house when police were called and he was brought here to [facility]. Reportedly his car was broken down when he presented to [facility] 09/23. 09/27 meeting patient for first day. He is confused and ambulatory. I am stopping aspirin as there is no history of heart disease or cerebrovascular disease and history of pulmonary embolism is accurate this is not adequate therapy. He was started on a statin also for unclear reasons this was stopped as his LDL is 58, HDL was 40. Again no heart disease no cerebrovascular disease no indication. 09/28 patient is impulsive and needs redirection, plan to discharge him to [facility] SNF but he needs psychiatry consult and not to have to sitter for 24 hours. To that end we will start him on Seroquel as needed and in the evening when he becomes a little more difficult. Message left with son Nathaniel. 09/29 patient seems to be deteriorating and becoming more paranoid. I spoke with his son Nathaniel as well as primary care provider Dr Tre Obrien , they have been worried about his deteriorating dictation for months. He does have episodes where he speaks aggressively and has landed in long-term but he has never acted on any of these aggressive behaviors. Starting IV fluids, calcitonin, increasing Flomax and adding finasteride. Psychiatry revisit appreciated. 09/30 patient not engaging anybody anymore, not eating not taking anything by mouth. We will contact son as well as primary care provider perhaps they can call and speak to the patient and elicit more cooperation. Monitoring calcium and sodium giving IV fluids accordingly. 10/01 other than name-calling patient is pretty agreeable. I think he is going to work with physical therapy. Sodium is marginal, I think he is taking fluids by mouth, his calcium is going up so I am starting 1/2NS 100 in our to run at least overnight and continuing nasal calcitonin in the hope that this controls his calcium long-term as it is almost certainly a result of lithium and we cannot discontinue this. Psychiatry will continue to follow through the weekend thank you. Complete metabolic panel, CBC, B12, and repeat ammonia are ordered 10/02 in a.m. #Hypernatremia- improved, status post liter of D5 water will check again in a.m. 09/30, NA 145 starting 1/2 NS checking labs again in the morning 10/01. #AMS/Delirium with hx of Bipolar disease/Dementia- - therapeutic on lithium he has been tried on other medications with poor results. He has been on lithium long-term and this is the only thing that has stabilized him according to PCP -Condition deteriorating adding when necessary IM olanzapine 09/29, will stop morphine 10/04 -try and wean sitter 09/28, stopped as per psyc rec 09/30, trying Klonopin 0.5 mg twice a day when necessary as per psych rec 09/30 -[place] low at 0.5 increasing dose to 3 times a day 10/01 -Thank you Dr. Johns following: adding aricept 5mg 10/04 #Urinary retention #BPH- incomplete bladder emptying, -Flomax 0.4mg on admit, increased to 0.8 and add finasteride 09/29 Feldman catheter - #hypercalcemia- baseline 10.3 with normal albumin, 11.2 and rising 09/29, 10.6 -- lithium from psychiatric standpoint this cannot be discontinued, we will try and manage with it -PTH 55 inappropriately high normal in setting of hypercalcemia -IVF, calcitonin 09/29, 10/01 #Metabolic encephalopathy/dementia -ammonia 77, we will start lactulose 09/27, CT of the abdomen and pelvis from [facility] did not discuss possible cirrhosis -Psychiatry consult recommends ruling out reversible causes which I think has been done by PCP requesting records 09/28 -Hypercalcemia may be contributing may be secondary to lithium, this cannot be discontinued according to PCP in son has been tried with disastrous results. #CKD3? -Cr 1.4 . To be about baseline -[place] versus BPH, monitor #Abdominal pain seems resolved but hard to say 09/29 patient not speaking or eating 09/30 -Pancreatitis posited, seems doubtful- improved, lipase slightly elevated, CT scan not revealing other than constipation. Patient tolerating food. -Hypercalcemia may be contributing #Hx pulmonary embolism hx-embolectomy procedure? Diet: Dysphagia mechanical DVT prophylaxis heparin scd ambulate, Appreciate social science manager help, patient currently homeless since losing was not at a temporary motel. PT rec snf, to d/w pt/son Code full Disposition inpt status Nathaniel (son): , Patient medically stable to discharge to SNF - placement pending possibly in 1- 2 days Pain Evaluation: Adequate Pain Control GI Prophylaxis: H2 jad VTE Prophylaxis: Sub-Q Heparin (Unfractionated) Resuscitation Status: CPR: Attempt Resuscitation Time spent 35 minutes spent with eval and mgmt Khurram Morales DO Oct 04, 2016 07:05
[2016-10-04] MEDS: Lactulose 20 Gm/30 mL 30 mL Syrup PO SCH (07:58)
[2016-10-04] MEDS: Calcitonin 200 IU 3.7 mL Nasal Spray NASAL SCH (07:58)
[2016-10-04] MEDS: Famotidine Inj 20 MG in IV Premix 1 EACH IV SCH (07:58)
[2016-10-04] MEDS: Senna-Docusate 8.6-50 mg Tablet PO SCH (08:00)
--- NOTE | 2016-10-04 11:09 | PCM.PNMED ---
Subjective Date of Service Oct 04, 2016 Exam Vital Signs Vital Sign - Last Date Time Temp Pulse Resp B/P Pulse Ox O2 Delivery O2 Flow Rate FiO2 10/04/16 08:43 82 10/04/16 07:53 36.3 16 94/56 96 Room Air Intake and Output 10/03/16 10/03/16 10/04/16 Cumulative From/Thru 15:00 23:00 07:00 09/24/16 15:21 - 10/04/16 05:43 Intake Total 1516 ml 1734 ml 71371 ml Output Total 1900 ml 1700 ml 80753 ml Balance -384 ml 34 ml -4787 ml Intake Oral 536 ml 750 ml 7932 ml IV Total 980 ml 984 ml 41327 ml Output Urine Total 1900 ml 1700 ml 13697 ml # Voids 3 # Bowel Movements 1 0 6 IVs and Medications Medications Reviewed: Medications were reviewed in detail Lab and Diagnostics Result Diagram: 10/04/16 0446 10/04/16 0446 X-Rays, CTs and MRIs CT 09/23 [facility] showed constipation/obstipation no pancreatitis Assessment & Plan 75-year-old homeless male presents 09/24 confused with abdominal pain. I believe I heard about this patient at [facility] in the emergency room and the plan had been to send him to [facility] for a psychiatric bed. Instead somehow he [place] [address] from house to house when police were called and he was brought here to [facility]. Reportedly his car was broken down when he presented to [facility] 09/23. 09/27 meeting patient for first day. He is confused and ambulatory. I am stopping aspirin as there is no history of heart disease or cerebrovascular disease and history of pulmonary embolism is accurate this is not adequate therapy. He was started on a statin also for unclear reasons this was stopped as his LDL is 58, HDL was 40. Again no heart disease no cerebrovascular disease no indication. 09/28 patient is impulsive and needs redirection, plan to discharge him to [facility] SNF but he needs psychiatry consult and not to have to sitter for 24 hours. To that end we will start him on Seroquel as needed and in the evening when he becomes a little more difficult. Message left with son Nathaniel. 09/29 patient seems to be deteriorating and becoming more paranoid. I spoke with his son Nathaniel as well as primary care provider Dr Tre Obrien , they have been worried about his deteriorating dictation for months. He does have episodes where he speaks aggressively and has landed in snf but he has never acted on any of these aggressive behaviors. Starting IV fluids, calcitonin, increasing Flomax and adding finasteride. Psychiatry revisit appreciated. 09/30 patient not engaging anybody anymore, not eating not taking anything by mouth. We will contact son as well as primary care provider perhaps they can call and speak to the patient and elicit more cooperation. Monitoring calcium and sodium giving IV fluids accordingly. 10/01 other than name-calling patient is pretty agreeable. I think he is going to work with physical therapy. Sodium is marginal, I think he is taking fluids by mouth, his calcium is going up so I am starting 1/2NS 100 in our to run at least overnight and continuing nasal calcitonin in the hope that this controls his calcium long-term as it is almost certainly a result of lithium and we cannot discontinue this. Psychiatry will continue to follow through the weekend thank you. Complete metabolic panel, CBC, B12, and repeat ammonia are ordered 10/02 in a.m. #Hypernatremia- improved, status post liter of D5 water will check again in a.m. 09/30, NA 145 starting 07/05 NS checking labs again in the morning 10/01. #AMS/Delirium with hx of Bipolar disease/Dementia- - therapeutic on lithium he has been tried on other medications with poor results. He has been on lithium long-term and this is the only thing that has stabilized him according to PCP -Condition deteriorating adding when necessary IM olanzapine 09/29, will stop morphine 10/04 -try and wean sitter 09/28, stopped as per psyc rec 09/30, trying Klonopin 0.5 mg twice a day when necessary as per psych rec 09/30 -[place] low at 0.5 increasing dose to 3 times a day 10/01 -Thank you Dr. Johns following: adding aricept 5mg 10/04 #Urinary retention #BPH- incomplete bladder emptying, -Flomax 0.4mg on admit, increased to 0.8 and add finasteride 09/29 Feldman catheter - #hypercalcemia- baseline 10.3 with normal albumin, 11.2 and rising 3/29, 10.6 -- lithium from psychiatric standpoint this cannot be discontinued, we will try and manage with it -PTH 55 inappropriately high normal in setting of hypercalcemia -IVF, calcitonin 09/29, 10/01 #Metabolic encephalopathy/dementia -ammonia 75, we will start lactulose 09/27, CT of the abdomen and pelvis from [facility] did not discuss possible cirrhosis -Psychiatry consult recommends ruling out reversible causes which I think has been done by PCP requesting records 09/28 -Hypercalcemia may be contributing may be secondary to lithium, this cannot be discontinued according to PCP in son has been tried with disastrous results. #CKD3? -Cr 1.4 . To be about baseline -[place] versus BPH, monitor #Abdominal pain seems resolved but hard to say 09/29 patient not speaking or eating 09/30 -Pancreatitis posited, seems doubtful- improved, lipase slightly elevated, CT scan not revealing other than constipation. Patient tolerating food. -Hypercalcemia may be contributing #Hx pulmonary embolism hx-embolectomy procedure? Diet: Dysphagia mechanical DVT prophylaxis heparin scd ambulate, Appreciate aids social worker help, patient currently homeless since losing was not at a temporary motel. PT rec snf, to d/w pt/son Code full Disposition inpt status Nathaniel (son): , Patient medically stable to discharge to SNF - placement pending possibly in 1- 2 days GI Prophylaxis: H2 jad VTE Prophylaxis: Sub-Q Heparin (Unfractionated) Resuscitation Status: CPR: Attempt Resuscitation Raymond Garcia MD Oct 04, 2016 11:09
--- NOTE | 2016-10-04 11:26 | NUR ---
NUTRITION ASSESSMENT Assess: 75 YO M admitted for altered mental status. Pt has had poor PO intake X 7 days. PMHX: BPH, Bipolar, PE. DIET: Dysphagia mechanical. PO intake refusal-15%. LABS: Cr 1.28, Glu 101, Ca 10.3 MEDICATIONS: Reviewed. Lactulose. GI: 2 BM /. SKIN: No issues noted. ANTHROPOMETRICS: 66.8 kg, BMI 21.7 kg/m2, Admit wt: 68.7 kg. ESTIMATED NEEDS: Calories: 2139-9796 kcal/day (25-30 kcal/kg BW) Protein: 67-80 g/day (1.0-1.2 g/kg BW) NUTRITION DIAGNOSIS: 1) Inadequate oral intake related to decreased ability to consume sufficient energy as evidenced by poor PO intake X 7 days. INTERVENTION: 1) Will add supplement to encourage adequate nutrition. MONITOR/EVALUATE: PO intake, diet tolerance, labs, GI, nutrition status. Follow per moderate nutrition risk guidelines.
--- NOTE | 2016-10-04 19:15 | NUR ---
Hypotensive Low BP this AM. Flomax and Lisinopril held. Patient denied pain and nausea this shift. Patient repositions self for comfort. Call light and tray table within reach. Will continue to monitor patient hourly.
[2016-10-05] VITALS (10 sets, daily range): BP systolic 79–186; BP diastolic 48–99; PULSE 62–100; RESP 16–18; O2SAT 96–99
[2016-10-05] MEDS: Heparin 5,000 Unit/mL Inj SUBQ SCH ×3 (00:55→18:24)
--- NOTE | 2016-10-05 04:40 | NUR ---
Blood Pressure/Mentation Pt with BP trending upward this shift, gave hydralazine for BP 186/99, recheck 1hr later and BP 79/48. Recheck 1.5 hrs later and BP 127/65. Pt in bed all shift and was asymptomatic. Pt continues to be confused with delusions. He is impulsive and required a 1:1 sitter this shift. He is alert to self. Redirected many times
[2016-10-05 05:42] LABS: BASOPHILS % (AUTO) 0.8 % (0-3); EOSINOPHILS % (AUTO) 7.1 % (0-5); MONOCYTES % (AUTO) 9.3 % (4-12); Mean Corpuscular Hemoglobin 34.7 pg (27.0-35.0); Mean Corpuscular Volume 102.9 fL (81-100); NEUTROPHILS % (AUTO) 65.6 % (40-74); Platelet Count 170 bil/L (150-400)
[2016-10-05] MEDS: Senna-Docusate 8.6-50 mg Tablet PO SCH (08:30)
--- NOTE | 2016-10-05 10:32 | NUR ---
ZHOU: Patient is not appropriate to sign or consent for ZHOU, patient has son as NOK but no formal DPOA. PURCHASING BUYER will call son today to give this message.
[2016-10-05] MEDS: Calcitonin 200 IU 3.7 mL Nasal Spray NASAL SCH (12:59)
--- NOTE | 2016-10-05 13:57 | PCM.PNMED ---
Subjective Date of Service Oct 05, 2016 Subjective Again more confused last evening, sitter needed. No acute issues this morning or complaints. Up in chair drinking shake and denying chest pain, shortness of breath. Patient states she was previously on lithium once a day as only change from morning to night, currently he is taking 3 times a day here with lithium levels elevated. We will decrease to once daily Exam Vital Signs Vital Sign - Last Date Time Temp Pulse Resp B/P Pulse Ox O2 Delivery O2 Flow Rate FiO2 10/05/16 13:09 36.7 85 16 163/62 99 Room Air Intake and Output 10/04/16 10/04/16 10/05/16 Cumulative From/Thru 15:00 23:00 07:00 09/24/16 15:21 - 10/05/16 05:47 Intake Total 2048 ml 955 ml 70933 ml Output Total 2100 ml 72488 ml Balance -52 ml 955 ml -3884 ml Intake Oral 1036 ml 8968 ml IV Total 1012 ml 955 ml 43442 ml Output Urine Total 2100 ml 59574 ml # Voids 3 # Bowel Movements 2 8 Exam Gen.-Thin elderly male sitting up in chair, he is oriented times 1, pleasant soft-spoken Eyes-eyes open conjunctiva clear, no discharge ENT- ears normal, nose normal Neck- supple/trach midline CVS-normal rate, no r/c/m/g Lungs-respirations regular and nonlabored GI- no tenderness, soft, no rebound Musc- moving 4 no obvious deformity Neuro- cranial nerves II through XII intact to gross examination, nonfocal, fine tremor noted Skin- warm and dry, no rashes/lesions/wounds noted Psych-flat affect, mildly depressed mood, some tangential thoughts IVs and Medications Medications Reviewed: Medications were reviewed in detail Lab and Diagnostics Result Diagram: 10/05/16 0509 10/05/16 0509 X-Rays, CTs and MRIs CT 09/23 [facility] showed constipation/obstipation no pancreatitis Assessment & Plan 75-year-old homeless male presents 09/24 confused with abdominal pain - found to be roaming the streets confused and presented to a stranger's doorstep who help the patient seek medical attention. 09/27 meeting patient for first day. He is confused and ambulatory. I am stopping aspirin as there is no history of heart disease or cerebrovascular disease and history of pulmonary embolism is accurate this is not adequate therapy. He was started on a statin also for unclear reasons this was stopped as his LDL is 58, HDL was 40. Again no heart disease no cerebrovascular disease no indication. 09/28 patient is impulsive and needs redirection, plan to discharge him to [facility] SNF but he needs psychiatry consult and not to have to sitter for 24 hours. To that end we will start him on Seroquel as needed and in the evening when he becomes a little more difficult. Message left with son Nathaniel. 09/29 patient seems to be deteriorating and becoming more paranoid. I spoke with his son Nathaniel as well as primary care provider Dr Tre Obrien , they have been worried about his deteriorating dictation for months. He does have episodes where he speaks aggressively and has landed in longterm but he has never acted on any of these aggressive behaviors. Starting IV fluids, calcitonin, increasing Flomax and adding finasteride. Psychiatry revisit appreciated. 09/30 patient not engaging anybody anymore, not eating not taking anything by mouth. We will contact son as well as primary care provider perhaps they can call and speak to the patient and elicit more cooperation. Monitoring calcium and sodium giving IV fluids accordingly. 10/01 other than name-calling patient is pretty agreeable. I think he is going to work with physical therapy. Sodium is marginal, I think he is taking fluids by mouth, his calcium is going up so I am starting 1/2NS 100 in our to run at least overnight and continuing nasal calcitonin in the hope that this controls his calcium long-term as it is almost certainly a result of lithium and we cannot discontinue this. Psychiatry will continue to follow through the weekend thank you. Complete metabolic panel, CBC, B12, and repeat ammonia are ordered 10/02 in a.m. #Hypernatremia- initially improved now possibly secondary to lithium dose of 3 times a day causing possible diabetes insipidus with increased urination noted via Feldman. Monitor urine output with decreased lithium dose, increase half- normal saline 100 mL an hour #AMS/Delirium with hx of Bipolar disease/Dementia- - Given patient's increase lithium to 3 times a day on 10/01, and development of fine tremor will wean back to once daily 300 mg of lithium with hopefully improving confusion, balance and tremor - therapeutic on lithium he has been tried on other medications with poor results. He has been on lithium long-term and this is the only thing that has stabilized him according to PCP -Continue his when necessary IM olanzapine 09/29, stopped morphine 10/04 -try and wean sitter 09/28, stopped as per psyc rec 09/30, trying Klonopin 0.5 mg twice a day when necessary as per psych rec 09/30 -[place] low at 0.5 increased dose to 3 times a day 10/01 -Thank you Dr. Johns following: adding aricept 5mg 10/04 #Urinary retention #BPH- incomplete bladder emptying, -Flomax 0.4mg on admit, increased to 0.8 now noting orthostasis and will decrease back to 0.4mg 10/05. Continue finasteride 09/29 continue with Feldman catheter -For voiding trial tomorrow 10/06 #hypercalcemia- baseline 10.3 with normal albumin, 11.2 and rising 09/29, 10.6 -- lithium from psychiatric standpoint this cannot be discontinued, we will try and manage with it -PTH 55 inappropriately high normal in setting of hypercalcemia -IVF, calcitonin 09/29, 10/01 #Metabolic encephalopathy/dementia -ammonia 75, we will start lactulose 09/27, CT of the abdomen and pelvis from [facility] did not discuss possible cirrhosis -Psychiatry consult recommends ruling out reversible causes which I think has been done by PCP requesting records 09/28 -Hypercalcemia may be contributing may be secondary to lithium, this cannot be discontinued according to PCP in son has been tried with disastrous results. #CKD3? -Cr 1.4 . To be about baseline -[place] versus BPH, monitor #Abdominal pain seems resolved but hard to say 09/29 patient not speaking or eating 09/30 -Pancreatitis posited, seems doubtful- improved, lipase slightly elevated, CT scan not revealing other than constipation. Patient tolerating food. -Hypercalcemia may be contributing #Hx pulmonary embolism hx-embolectomy procedure? Diet: Dysphagia mechanical DVT prophylaxis heparin scd ambulate, Appreciate social media campaign manager help, patient currently homeless since losing was not at a temporary motel. PT rec snf, to d/w pt/son Code full Disposition inpt status Nathaniel (son): , Patient medically stable to discharge to SNF - placement pending possibly in 1- 2 days Pain Evaluation: Adequate Pain Control GI Prophylaxis: H2 jad VTE Prophylaxis: Sub-Q Heparin (Unfractionated) Resuscitation Status: CPR: Attempt Resuscitation Time spent 35 minutes spent with evaluation and management of this patient Attending Statement Disposition: Pending clinical stability and we will have more information when son arrives tomorrow afternoon hopefully. Needs to not have sitter before consideration for [facility] facility which hopefully will be more easily obtained with titration of lithium and side effects Khurram Morales DO Oct 05, 2016 13:57
--- NOTE | 2016-10-05 16:05 | NUR ---
ZHOU Patient is not appropriate to sign or consent for ZHOU. SW attempted to call patient's son, Nathaniel Mazariegos [phone], today to discuss ZHOU but there was no answer. SW left a message requesting a call back.
--- NOTE | 2016-10-05 18:31 | NUR ---
Activity Patient up to chair for meals. Sitter at bedside this shift, patient less impulsive this shift. Patient denied pain and nausea this shift. Patient repositions self for comfort and assistance from aide. Call light and tray table within reach. Will continue to monitor patient hourly.
[2016-10-06] VITALS (8 sets, daily range): BP systolic 75–126; BP diastolic 52–80; PULSE 59–110; RESP 16–20; O2SAT 96–99
[2016-10-06] MEDS: Heparin 5,000 Unit/mL Inj SUBQ SCH ×3 (00:36→17:29)
--- NOTE | 2016-10-06 03:57 | NUR ---
Sitter Patient had 1:1 sitter at beginning of shift. Sitter was not necessary and was sent home. Patient calm and relaxed for the most part. No attempts to get up without assistance. Patient denies pain. Alert to self. Tele sinus 65. Vitals stable.
--- NOTE | 2016-10-06 06:41 | PCM.PNMED ---
Subjective Date of Service Oct 06, 2016 Subjective pt needing sitter for beginning of global president then sent home last evening, no acute events overnight - no reports of sob/cp/f/c - lithium decr yesterday likely causing tremor and elev Na. monitoring UOP given Li can cause DI albeit nl levels noted. son to arrive in [facility] today Exam Vital Signs Vital Sign - Last Date Time Temp Pulse Resp B/P Pulse Ox O2 Delivery O2 Flow Rate FiO2 10/06/16 04:34 114/65 10/06/16 04:27 36.5 59 16 97 Room Air Intake and Output 10/05/16 10/05/16 10/06/16 Cumulative From/Thru 15:00 23:00 07:00 09/24/16 15:21 - 10/06/16 05:19 Intake Total 350 ml 1754 ml 200 ml 31587 ml Output Total 5900 ml 1201 ml 1545 ml 47839 ml Balance -5550 ml 553 ml -1345 ml -52834 ml Intake Oral 350 ml 795 ml 200 ml 03035 ml IV Total 959 ml 96228 ml Output Urine Total 5900 ml 1200 ml 1545 ml 50012 ml Stool Total 1 ml 1 ml # Voids 3 # Bowel Movements 0 8 Exam Gen.-Thin elderly male he is oriented times 1, pleasant soft-spoken Eyes-eyes open conjunctiva clear, no discharge ENT- ears normal, nose normal Neck- supple/trach midline CVS-normal rate, no r/c/m/g Lungs-respirations regular and nonlabored GI- no tenderness, soft, no rebound Musc- moving 4 no obvious deformity Neuro- cranial nerves II through XII intact to gross examination, nonfocal, fine tremor noted Skin- warm and dry, no rashes/lesions/wounds noted Psych-flat affect, mildly depressed mood, some tangential thoughts IVs and Medications Medications Reviewed: Medications were reviewed in detail Lab and Diagnostics Result Diagram: 10/05/16 0509 10/05/16 0509 X-Rays, CTs and MRIs CT 09/23 [facility] showed constipation/obstipation no pancreatitis Assessment & Plan 75-year-old homeless male presents 09/24 confused with abdominal pain - found to be roaming the streets confused and presented to a stranger's doorstep who help the patient seek medical attention. 09/27 meeting patient for first day. He is confused and ambulatory. I am stopping aspirin as there is no history of heart disease or cerebrovascular disease and history of pulmonary embolism is accurate this is not adequate therapy. He was started on a statin also for unclear reasons this was stopped as his LDL is 58, HDL was 40. Again no heart disease no cerebrovascular disease no indication. 09/28 patient is impulsive and needs redirection, plan to discharge him to [facility] SNF but he needs psychiatry consult and not to have to sitter for 24 hours. To that end we will start him on Seroquel as needed and in the evening when he becomes a little more difficult. Message left with son Nathaniel. 09/29 patient seems to be deteriorating and becoming more paranoid. I spoke with his son Nathaniel as well as primary care provider Dr Tre Obrien [phone], they have been worried about his deteriorating dictation for months. He does have episodes where he speaks aggressively and has landed in detention but he has never acted on any of these aggressive behaviors. Starting IV fluids, calcitonin, increasing Flomax and adding finasteride. Psychiatry revisit appreciated. 09/30 patient not engaging anybody anymore, not eating not taking anything by mouth. We will contact son as well as primary care provider perhaps they can call and speak to the patient and elicit more cooperation. Monitoring calcium and sodium giving IV fluids accordingly. 10/01 other than name-calling patient is pretty agreeable. I think he is going to work with physical therapy. Sodium is marginal, I think he is taking fluids by mouth, his calcium is going up so I am starting 1/2NS 100 in our to run at least overnight and continuing nasal calcitonin in the hope that this controls his calcium long-term as it is almost certainly a result of lithium and we cannot discontinue this. Psychiatry will continue to follow through the weekend thank you. Complete metabolic panel, CBC, B12, and repeat ammonia are ordered 4 in a.m. #Hypernatremia- initially improved now possibly secondary to lithium dose of 3 times a day causing possible diabetes insipidus with increased urination noted via Feldman. Monitor urine output with decreased lithium dose, increase half- normal saline 100 mL an hour #AMS/Delirium with hx of Bipolar disease/Dementia- - Given patient's increase lithium to 3 times a day d/t level of 0.5 on 10/01 during present hospitalization (as noted below), and development of fine tremor will wean back to once daily 300 mg of lithium with hopefully improving confusion, balance and tremor 10/05 - therapeutic on lithium he has been tried on other medications with poor results. He has been on lithium long-term and this is the only thing that has stabilized him according to PCP - noted interaction with lithium and celexa as well - Li dose decreased on 10/05 -Continue his when necessary IM olanzapine 09/29, stopped morphine 10/04 -try and wean sitter 09/28, stopped as per psyc rec 09/30, trying Klonopin 0.5 mg twice a day when necessary as per psych rec 09/30 -Thank you Dr. Johns following: adding aricept 5mg 10/04 #Urinary retention #BPH- incomplete bladder emptying, -Flomax 0.4mg on admit, increased to 0.8 now noting orthostasis and will decrease back to 0.4mg 10/05. Continue finasteride 09/29 continue with Feldman catheter -For voiding trial 10/06 #hypercalcemia- baseline 10.3 with normal albumin, 11.2 and rising 09/29, 10.6 -- lithium from psychiatric standpoint this cannot be discontinued, we will try and manage with it -PTH 55 inappropriately high normal in setting of hypercalcemia -IVF, calcitonin 09/29, 10/01 #Metabolic encephalopathy/dementia -ammonia 75, no improv wit htrial of lactulose 09/27, now dc'd d/t nl levels, CT of the abdomen and pelvis from [facility] did not discuss possible cirrhosis -Psychiatry consult recommends ruling out reversible causes which I think has been done by PCP requesting records 09/28 -Hypercalcemia may be contributing may be secondary to lithium, this cannot be discontinued according to PCP in son has been tried with disastrous results. #CKD3? -Cr 1.4 . To be about baseline -[place] versus BPH, monitor #Abdominal pain seems resolved but hard to say 09/29 patient not speaking or eating 09/30 -Pancreatitis posited, seems doubtful- improved, lipase slightly elevated, CT scan not revealing other than constipation. Patient tolerating food. -Hypercalcemia may be contributing #Hx pulmonary embolism hx-embolectomy procedure? Diet: Dysphagia mechanical DVT prophylaxis heparin scd ambulate, Appreciate social media marketing analyst help, patient currently homeless since losing was not at a temporary motel. PT rec snf, to d/w pt/son Code full Disposition inpt status Nathaniel (son): , Patient medically stable to discharge to SNF - placement pending possibly in 1- 2 days pending discussion with son GI Prophylaxis: H2 jad VTE Prophylaxis: Sub-Q Heparin (Unfractionated) VTE Mechanical Devices: Intermittant Pneumatic CD Resuscitation Status: CPR: Attempt Resuscitation Time spent 30 minutes spent with eval and mgmt Khurram Morales DO Oct 06, 2016 06:41
[2016-10-06 07:24] LABS: BASOPHILS % (AUTO) 0.7 % (0-3); EOSINOPHILS % (AUTO) 6.5 % (0-5); MONOCYTES % (AUTO) 12.4 % (4-12); Mean Corpuscular Hemoglobin 33.6 pg (27.0-35.0); Mean Corpuscular Volume 105.4 fL (81-100); NEUTROPHILS % (AUTO) 63.1 % (40-74); Platelet Count 175 bil/L (150-400)
--- NOTE | 2016-10-06 08:41 | NUR ---
Spoke with Stephanie at [facility] in admissions and she is still following, she would like to see how thing go today when the son comes in and if there is any more planning for patient. She will then take this to her executive administrator and they may want to come over and do an onsite. Spoke with Beena in admissions at [facility] and they are not able to accept patient due to level of needs and ongoing behaviors and sitter. Faxed referral to [facility] also per RADIOLOGY TECH securities vault supervisor.
[2016-10-06] MEDS: Calcitonin 200 IU 3.7 mL Nasal Spray NASAL SCH (09:41)
[2016-10-06] MEDS: Senna-Docusate 8.6-50 mg Tablet PO SCH (09:48)
--- NOTE | 2016-10-06 11:34 | NUR ---
During PT session, pt demonstrated orthostatic hypotension from xodfgy=152/67, HR=67 to standing=75/52, VJ=[id number] after ambulating in room 30ft. Pt did not report any symptoms but became less responsive and increasingly confused. Pt with increased fall risk. PT recommending NSG monitor BPs with upright mobility and when pt demonstrates increased tolerance, PT will resume seeing pt to progress mobility beyond 30ft at bedside, RN aware.
--- NOTE | 2016-10-06 13:52 | NUR ---
Social Work - Brief note Adult Protective Services called to inform SW that a case has been opened on pt. SW agreed to contact Charisse De La Fuente with APS at discharge. MAIN Lazcano
--- NOTE | 2016-10-06 15:10 | NUR ---
Spoke with Maira at [facility] and they will accept patient once sitter free for 48 hours, I let her know we would probably be ready to have him ready to discharge on Tuesday. Maira can be reached at [phone]. 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
--- NOTE | 2016-10-06 15:35 | NUR ---
Hypotension while ambulating with PT, BP decresed to 75/52(see PT notes) pt denies dizziness, but appeared very weak and tired quickly. Dr Morales notified, also later in afternoon he was sitting in chair and felt "foggy" checked VSs which were ok except BP 98/62
--- NOTE | 2016-10-06 16:15 | NUR ---
Sitter Free Pt has been sitter free since 10/05/16 @ 2300.
--- NOTE | 2016-10-06 16:30 | NUR ---
Social Work - Continued Discharge Planning Data: EMR reviewed. Pt is on day 12 of hospitalization for AMS per H&P. Pt is not medically stable to discharge. SW met with pt and son Nathaniel to discuss discharge planning. Son is visiting from [place]. SW explained that Pt is recommending SNF and [facility] has accepted him after he has gone 48 hours without a sitter (he has no sitter as of this morning). Pt's son stated that he has contacted [facility] and is working with them to see if they can accommodate the pt. SW will update son when pt is being discharged. PASSR is in file. SW will continue to follow for needs. Assessment: Pt who would benefit from SNF Plan: [facility] has accepted pt after he has gone 48 hours without a sitter (he has no sitter as of this morning). Pt's son stated that he has contacted [facility] and is working with them to see if they can accommodate the pt. SW will update son when pt is being discharged. PASSR is in file. SW will continue to follow for needs. MAIN Lazcano
[2016-10-07 00:21] VITALS: BP 138/76; PULSE 69; RESP 17; O2SAT 99
[2016-10-07 00:22] VITALS: PULSE 66
[2016-10-07] MEDS: Heparin 5,000 Unit/mL Inj SUBQ SCH ×3 (00:59→17:42)
--- NOTE | 2016-10-07 02:00 | NUR ---
Refused medication Patient refused both his Aricept and Pepsid this shift. His Son tried to help convince him he needed the medication, but patient continued to refuse. Later in shift patient was fine to receive his Heparin injection. Patient up to bedside commode with FFW and one person assist. Patient a little shaky on legs. Patient hypotensive. Vitals stable otherwise.
[2016-10-07 04:58] VITALS: BP 119/74; PULSE 65; RESP 17; O2SAT 97
[2016-10-07 05:42] LABS: BASOPHILS % (AUTO) 0.7 % (0-3); EOSINOPHILS % (AUTO) 5.8 % (0-5); Mean Corpuscular Hemoglobin 33.6 pg (27.0-35.0); NEUTROPHILS % (AUTO) 62.7 % (40-74); Platelet Count 191 bil/L (150-400)
[2016-10-07 08:00] VITALS: PULSE 53
[2016-10-07] MEDS: Calcitonin 200 IU 3.7 mL Nasal Spray NASAL SCH (10:59)
[2016-10-07] MEDS: Senna-Docusate 8.6-50 mg Tablet PO SCH (11:01)
--- NOTE | 2016-10-07 11:35 | PCM.PNMED ---
Subjective Date of Service Oct 07, 2016 Subjective Pt remains confused. He denies any abdominal pain today. He has no other complaints or concerns at this time. Exam Vital Signs Vital Sign - Last Date Time Temp Pulse Resp B/P Pulse Ox O2 Delivery O2 Flow Rate FiO2 10/07/16 04:58 36.7 65 17 119/74 97 Room Air Intake and Output 10/06/16 10/06/16 10/07/16 Cumulative From/Thru 15:00 23:00 07:00 09/24/16 15:21 - 10/07/16 05:08 Intake Total 1100 ml 1670 ml 53185 ml Output Total 1002 ml 750 ml 76055 ml Balance 98 ml 920 ml -8233 ml Intake Oral 1100 ml 800 ml 22035 ml IV Total 870 ml 61285 ml Output Urine Total 1002 ml 750 ml 99699 ml Stool Total 1 ml # Voids 3 # Bowel Movements 1 0 9 Exam GENERAL: NAD, Pt laying in bed comfortably HEENT: AT/NC, PERRLA, EOMI, Mucus Membranes are moist CARDIAC: RRR; No M/R/G PULM: CTAB; No wheezes or rhonchi bilaterally ABD: Soft, Nontender, Nondistended, Positive bowel sounds in all quadrants, No Hepatosplenomegaly appreciated EXT: No C/C/E; No calf tenderness bilaterally SKIN: Warm, Dry, [place], and Intact NEURO: Alert and oriented x1; Following most commands PSYCH: Normal mood and affect IVs and Medications Medications Reviewed: Medications were reviewed in detail Lab and Diagnostics Result Diagram: 10/07/16 0505 10/07/16 0505 X-Rays, CTs and MRIs CT 09/23 [facility] showed constipation/obstipation no pancreatitis Assessment & Plan 75-year-old homeless male presents 09/24 confused with abdominal pain - found to be roaming the streets confused and presented to a stranger's doorstep who helped the patient seek medical attention. 1. Alzheimer's Disease - I think pt may be at baseline mentation - Continue Aricept which was started by Psychiatry - Monitor closely - Pt is no longer requiring a sitter - Continue PRN IM Olazapine per Psychiatry 2. Bipolar Disorder - Continue Klonapin - Continue [place] - Continue Olanzepine PRN - Psychiatry on board - [place] level is therapeutic 3. Urinary Retention - Secondary to BPH - Continue Flomax at current dose - Continue Feldman catheter - Pt to follow-up with Urology as an outpatient for further management 4. Hypercalcemia - Very likely related to [place] - May have something to do with his altered mentation and his complaints of abdominal pain - Ca level remains elevated, and pt has been on IV fluids - Will consult Nephrology now to see pt and make further recommendations for ongoing management of pts hypercalcemia - BMP in AM 5. Acute Kidney Injury on CKD - Nephrology consulted - Repeat BMP in AM - Likely related to obstructive uropathy from BPH 6. Disposition - Anticipate discharge in the next 2-3 days GI Prophylaxis: H2 jad VTE Prophylaxis: Sub-Q Heparin (Unfractionated) VTE Mechanical Devices: Intermittant Pneumatic CD Resuscitation Status: CPR: Attempt Resuscitation Chase Hawkins MD Oct 07, 2016 11:35
[2016-10-07 11:52] VITALS: BP 122/81; PULSE 97; RESP 16; O2SAT 99
--- NOTE | 2016-10-07 14:17 | NUR ---
strength noticed marked improvement today in pts physical strength, he was able to stand and walk with FWW and standby assist, down entire hallway. He did not feel weak or SOB, gait still seemed unsteady but much better that yesterday
--- NOTE | 2016-10-07 16:03 | NUR ---
Social Work - Readiness for Discharge Data: EMR reviewed. Pt is on day 13 of hospitalization for AMS per H&P. Pt is not medically stable to discharge. Per MD in rounds, Nephrology to consult. SW met with son Nathaniel at bedside to discuss discharge planning. Son is visiting from [place]. SW explained current discharge plan of discharge to [facility] in [place] after pt has gone 48 hours without sitter. Sitter was D/C 10/05 at 2300. PT has recommended nursing assist pt in ambulating 2-3x per day. Pt anticipated to have skilled RN needs at discharge. Pt's son stated that he has contacted [facility] and is working with them to see if they can accommodate the pt. Paperwork and PASSR is in chart. SW will continue to follow for needs. Assessment: Pt who would benefit from SNF Plan: Pt is anticipated to discharge with skilled RN needs. PT has cleared pt to ambulate 2-3x per day with nursing staff. [facility] has accepted pt after he has gone 48 hours without a sitter (he has no sitter as of 10/05 @ 2300). Pt's son stated that he has contacted [facility] and is working with them to see if they can accommodate the pt after SNF stay. SW will update son as discharge plan evolves. Paperwork and PASSR is in file. SW will continue to follow for needs. MAIN Major
--- NOTE | 2016-10-07 16:37 | NUR ---
Received TC from Maira at [facility], her DNS has reviewed the case today and they are unable to meet pt's needs. Advised CAUSTIC LOADER.
--- NOTE | 2016-10-07 18:27 | DRSVH ---
PROCEDURE: US RENAL SONOGRAM INDICATIONS: ckd TECHNIQUE: Real-time scanning was performed of the kidneys and bladder, with image documentation. COMPARISON: None. FINDINGS: Kidneys: Right kidney measures 10.9 cm long; left kidney measures 0 cm long. Right renal cortical t hickness is 1.6 cm; left renal cortical thickness is 1.5 cm. there is increased renal cortical echoge nicity bilaterally. No hydronephrosis. There are multiple bilateral anechoic thin-walled renal cyst s, with the 2 largest cysts on the right measuring up to 4.6 cm along the superior pole and 6.0 cm al deloris the superior to midpole region anteriorly. Largest left renal cysts measure up to 6.0 cm posteri ivan in the interpolar region and 3.6 cm in the superior pole anteriorly. Bladder: Pre-void bladder volume is 291 mL. Post-void residual is 11 mL. Pre-void images demonstra te no intraluminal masses or stones. On pre-void images, the right ureteral jet is noted with color Doppler interrogation. (Of note, ureteral jets may not be detectable in up to 25% of cases due to in sufficient differences in specific gravity between ureteral and bladder urine). The prostate appears enlarged measuring approximately 4.4 x 4.0 x 4.4 cm. Miscellaneous: No free pelvic fluid. IMPRESSION: 1. Increased renal cortical echogenicity compatible with medical renal disease. 2. No evidence of hydronephrosis. 3. Multiple bilateral renal cysts. Dictated by: Geo Ch M.D. on 10/07/2016 at 18:22 Approved by: Geo Ch M.D. on 10/07/2016 at 18:26
[2016-10-07 20:11] VITALS: BP 105/62; PULSE 53; RESP 18; O2SAT 96
[2016-10-08] VITALS (7 sets, daily range): BP systolic 105–115; BP diastolic 55–78; PULSE 45–63; RESP 16–20; O2SAT 93–97
[2016-10-08] MEDS: Heparin 5,000 Unit/mL Inj SUBQ SCH ×3 (00:40→17:41)
--- NOTE | 2016-10-08 01:21 | CONS ---
[address] [address] CONSULTATION REPORT PATIENT: MAXIM CALVIN : 1940 MR#: [id number] ADMIT: 09/24/2016 JOB ID: [id number] DATE OF SERVICE: HISTORY: The patient is a rather unfortunate 75-year-old gentleman, who was admitted to [facility] for mental status change and confusion. Since admission, he has had a mild but persistent hypernatremia and hypercalcemia. He has also had a mild elevation in his creatinine. Renal consultation is being sought for further evaluation of his renal issues. He has an extensive history of mental illness dating back a number of decades. He has been on lithium for a good part of this time and continues to take lithium on a regular basis. He had been fairly functional until approximately the last year or so when his mental status has markedly deteriorated. He is currently homeless and has had a number of run-ins with Police because of aberrant behavior. He was brought to the emergency department by the Police because he was found in his car to be quite confused after trying to enter someone's house. His initial evaluation was relatively unremarkable with the exception of a creatinine of 1.4. Imaging studies of his brain revealed some cerebral volume loss and evidence of extensive small vessel disease consistent with multi-infarct dementia. He is unable to give much meaningful information, and his information is intermittently accurate and erratic and inconsistent he does not have any evidence of any confabulation. During his hospitalization, he has had copious urine output, and he states that he is chronically thirsty and drinks a considerable amount of water. 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 His lithium levels have been well within normal limits during his hospitalization. His sodium levels have been high averaging 144-145. He has also had some significant episodes of hypotension over approximately a 12-hour period yesterday with systolic blood pressures in the 70s. His blood pressure responded to IV fluids, and this was no doubt due to his ongoing chronic osmotic diuresis. 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 He has also had an benign prostatic hypertrophy and apparently has had some type of urological procedure. He denies any history of diabetes, prior stroke, asthma, emphysema, coronary artery disease or hepatitis. He does have a history of some type of neuropathy, GERD, for which he takes omeprazole, and apparently, there is a history of a PE in the past. PAST SURGICAL HISTORY: Significant for some type of urological procedures and surgery to his C-spine. ALLERGIES: He is allergic to HYDROCODONE. SOCIAL HISTORY: He denies the current use of alcohol or tobacco. He denies any illicit drugs and is homeless as detailed above. CURRENT MEDICATIONS INCLUDE: [place], Aricept, Pepcid, Celexa, Klonopin, calcitonin, Zyprexa, Proscar, lisinopril, hydralazine. FAMILY HISTORY IS NOT: Not obtainable. REVIEW OF SYSTEMS: As detailed above. Otherwise is unremarkable. PHYSICAL EXAMINATION: Revealed a thin, somewhat disheveled appearing, 60-year-old, white male who was very soft-spoken and appeared to have a depressed affect at time of my evaluation. His blood pressure is 122/81 with a pulse of 97. HEENT examination is remarkable for pale sclerae, dry mucous membranes, and bitemporal wasting. Neck is supple without adenopathy, thyromegaly or jugular venous distention. Lungs are clear to auscultation. Heart is regular and rhythmical with a soft systolic murmur. Abdomen is soft, with normal bowel sounds. There was no tenderness, rebound, guarding, masses, or hepatosplenomegaly. Extremities did not show any evidence of any clubbing, cyanosis, or edema. Skin turgor was diminished, and there was no evidence of any rashes. LABORATORY EXAMINATION: This morning, his sodium was 144, potassium 4.2, chloride 111, bicarbonate 23, BUN and creatinine were 23 and 1.46. His calcium is 11. His liver function studies were normal. His parathyroid hormone level was unremarkable at 59. Urinalysis showed a specific gravity of less than 1.005, pH was 6.5. Tests for occult blood were large and he had evidence of pink-colored urine. Echocardiogram obtained on admission showed normal left ventricular size, shape; however, he does have evidence of diastolic dysfunction. 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 2. Hypernatremia. 3. Dehydration. 4. Hypercalcemia most likely secondary to nephrogenic diabetes insipidus; however, I would be concerned about the possibility of a coexistent malignancy. 5. Acute kidney injury secondary to dehydration. RECOMMENDATION: I would like to obtain a renal ultrasound along with a serum protein electrophoresis. I would also like to continue his IV hydration with half-normal saline and encourage him to get back into his oral hydration routine. I would also like to further evaluate his blood pressure once his volume status is stable. Once again, I would like to thank you for allowing me to participate in the care of this most pleasant, interesting patient. I will be following him closely with you.
--- NOTE | 2016-10-08 02:46 | NUR ---
Activity Pt. ambulates to the bathroom with sba okay. Pt's legs are a little shaky, needs FWW. Pt. also gets a bit confused of where toilet is. Will continue to monitor.
[2016-10-08] MEDS: Calcitonin 200 IU 3.7 mL Nasal Spray NASAL SCH (09:23)
[2016-10-08] MEDS: Senna-Docusate 8.6-50 mg Tablet PO SCH (09:24)
--- NOTE | 2016-10-08 10:34 | NUR ---
LEYDI Ulloa at [facility] who advised pt will be assessed at 1pm by MV staff member. Let Laila know DC probably OMEGA/ Advised HAND ZIPPER TRIMMER
--- NOTE | 2016-10-08 11:34 | NUR ---
NUTRITION FOLLOW-UP: Assess: 75 YO M admitted for altered mental status. Per notes, pt remains confused. Pt po intake is improving with pt eating 25-75% of most meals over the past 3-4 days. PMHX: BPH, Bipolar, PE, [place]. DIET: Dysphagia mechanical. PO intake 25-75 x 3-4 days. LABS: Reviewed. Cr 1.46, Ca 11.0, Alb 3.5 MEDICATIONS: Reviewed. GI: BM x 1 (10/06) ANTHROPOMETRICS: 68.8 kg. Admit wt: 68.7 kg. ESTIMATED NEEDS: Calories: 4296-0515 kcal/day (25-30 kcal/kg BW) Protein: 67-80 g/day (1.0-1.2 g/kg BW) NUTRITION DIAGNOSIS: 1) Inadequate oral intake related to decreased ability to consume sufficient energy as evidenced by poor PO intake X 7 days--IMPROVING, PO 25-75% most meals x 3-4 days. INTERVENTION: 1) Continue to send ensure all trays to promote increased po intake. MONITOR/EVALUATE: PO intake, diet tolerance, labs, GI, nutrition status. Follow per moderate nutrition risk guidelines.
--- NOTE | 2016-10-08 11:45 | PCM.PNMED ---
Subjective Date of Service Oct 08, 2016 Subjective Pt states he is feeling much better today. Pts son, whom is at bedside, reports pt is back to his baseline mentation and function. No complaints today. Exam Vital Signs Vital Sign - Last Date Time Temp Pulse Resp B/P Pulse Ox O2 Delivery O2 Flow Rate FiO2 10/08/16 08:00 56 10/08/16 04:38 36.3 18 105/65 93 Room Air Intake and Output 10/07/16 10/07/16 10/08/16 Cumulative From/Thru 15:00 23:00 07:00 09/24/16 15:21 - 10/08/16 06:31 Intake Total 2070 ml 1865 ml 44087 ml Output Total 1100 ml 77679 ml Balance 970 ml 1865 ml -5398 ml Intake Oral 1100 ml 900 ml 90784 ml IV Total 970 ml 965 ml 12230 ml Output Urine Total 1100 ml 43937 ml Stool Total 1 ml # Voids 1 4 # Bowel Movements 0 9 Exam GENERAL: NAD, Pt laying in bed comfortably HEENT: AT/NC, PERRLA, EOMI, Mucus Membranes are moist CARDIAC: RRR; No M/R/G PULM: CTAB; No wheezes or rhonchi bilaterally ABD: Soft, Nontender, Nondistended, Positive bowel sounds in all quadrants, No Hepatosplenomegaly appreciated EXT: No C/C/E; No calf tenderness bilaterally SKIN: Warm, Dry, [place], and Intact NEURO: Alert and oriented x3; Following all commands PSYCH: Normal mood and affect IVs and Medications Medications Reviewed: Medications were reviewed in detail Lab and Diagnostics Result Diagram: 10/07/16 0505 10/08/16 0505 X-Rays, CTs and MRIs CT 09/23 [facility] showed constipation/obstipation no pancreatitis Assessment & Plan 75-year-old homeless male presents 09/24 confused with abdominal pain - found to be roaming the streets confused and presented to a stranger's doorstep who helped the patient seek medical attention. 1. Alzheimer's Disease - Pt is at baseline mentation - Continue Aricept which was started by Psychiatry - Monitor closely - Pt is no longer requiring a sitter - Continue PRN IM Olazapine per Psychiatry 2. Bipolar Disorder - Continue Klonapin - Continue [place] - Continue Olanzepine PRN - Psychiatry on board - [place] level remains therapeutic 3. Urinary Retention - Secondary to BPH - Continue Flomax at current dose - Continue Feldman catheter - Pt to follow-up with Urology as an outpatient for further management 4. Hypercalcemia - Very likely related to [place] - Ca level remains elevated, and pt has been on IV fluids, these were switched to 1/2 NS by Nephrology on 10/07/2016 - Nephrology on board and managing - BMP in AM 5. Acute Kidney Injury on CKD - Nephrology on board - Repeat BMP in AM - Likely related to obstructive uropathy from BPH 6. Nephrogenic Diabetes Insipidus - Secondary to [place] - Nephrology managing 7. Disposition - Anticipate discharge in the next 2-3 days however placement will be an issue GI Prophylaxis: H2 jad VTE Prophylaxis: Sub-Q Heparin (Unfractionated) VTE Mechanical Devices: Intermittant Pneumatic CD Resuscitation Status: CPR: Attempt Resuscitation Chase Hawkins MD Oct 08, 2016 11:45
--- NOTE | 2016-10-08 15:18 | NUR ---
MENTATION/ACTIVITY Patient is alert and oriented to person and time. Denies pain. Tolerating liquids PO and his diet well. Denies nausea. No emesis noted. Per his son patient is less shaky today and is steadier. Patient was able to ambulate in the room with SBA and the FWW. Tolerated activity well. Patient is on remote tele. Per telegraphic typewriter installer patient is on sinus oswald; HR-50's.
--- NOTE | 2016-10-08 16:48 | NUR ---
Social Work- Continued D/C Planning Data: EMR reviewed. Pt is on day 14 of hospitalization for AMS per H&P. Per MD in rounds, pt is not medically stable for discharge, anticipate 1-2 more days. SEVERO received notification that [facility] SNF is unable to meet pt's needs at this time and unable to accept pt. UR Specialist spoke with Amaya Perez, who scheduled a bedside assessment with pt at 1300. SEVERO spoke with pt and pt's son Nathaniel at bedside regarding discharge plan. Pt alert and oriented x3. SW informed Nathaniel of [facility]'s update and [facility]'s bedside assessment. SW also explained respite care at [facility] Pt and Nathaniel agreeable to pursuing respite, agreeable to private pay. Nathaniel now has access to pt's financial information. SEVERO spoke with Claudia at [facility] who requested clinicals be faxed. SEVERO faxed pt's clinicals to Claudia. SEVERO spoke with [facility] helpdesk administrator, Manuel, after pt's bedside assessment was completed. Amaya Perez to review patient's clinicals and consult with clinical team at [facility]. SW to follow up with pt and son Nathaniel regarding respite care and [facility] [place] as new information becomes available. Assessment: Pt who may benefit from SNF at [facility] or respite care at [facility] Plan: [facility] admissions consulting clinical team after bedside assessment. Acceptance pending. Pt's son Nathaniel pursuing respite care at [facility] SW to follow up with pt and son Nathaniel regarding respite care and [facility] as new information becomes available. Massiel Rhodes, HEAD OF DRAMA
--- NOTE | 2016-10-08 17:36 | PCM.PNNEPH ---
Subjective Date of Service Oct 08, 2016 Subjective The patient is considerably more alert and interactive today compared to my initial evaluation. He is much more active and is taking more fluids in along with other nutrition. He denies any chest pain, shortness of breath, cough or wheezing. It is I's and O's from yesterday showed 3740 and an 1850 out. His lithium level today is 0.07. History review of his renal ultrasound showed diffuse increased echogenicity and scattered simple renal cyst. His sodium is 141, potassium 4.3, chloride 107, bicarbonate 25, BUN and creatinine were 21 and 1.46. Exam Vital Signs Vital Sign - Last Date Time Temp Pulse Resp B/P Pulse Ox O2 Delivery O2 Flow Rate FiO2 10/08/16 14:20 36.3 63 18 110/55 96 Room Air Intake and Output 10/07/16 10/07/16 10/08/16 Cumulative From/Thru 15:00 23:00 07:00 09/24/16 15:21 - 10/08/16 06:31 Intake Total 2070 ml 1865 ml 71726 ml Output Total 1100 ml 65069 ml Balance 970 ml 1865 ml -5398 ml Intake Oral 1100 ml 900 ml 08221 ml IV Total 970 ml 965 ml 66297 ml Output Urine Total 1100 ml 05410 ml Stool Total 1 ml # Voids 1 4 # Bowel Movements 0 9 Exam Neck is supple without adenopathy, thyromegaly, or jugular venous distention. Lungs are clear to auscultation. Heart is regular with mechanical soft systolic murmur. Abdomen soft without any tenderness or rebound guarding masses or hepatosplenomegaly. Extremities do not show any evidence of any clubbing cyanosis or edema. There is still a bit diminished but otherwise is normal. Lab and Diagnostics Result Diagram: 10/07/16 0505 10/08/16 0505 X-Rays, CTs and MRIs CT 09/23 [facility] showed constipation/obstipation no pancreatitis Plan Impression Impression #1 Diabetes insipidus #2 hypernatremia secondary #1 #3 dehydration number for hypercalcemia #5 acute kidney injury which is resolved Recommendations #1 I would like to discontinue the IV fluids and see how he does with oral fluids. If he is able maintain his hydration status he can probably be discharged in a day or so I will provided adequate social support at home. Jagjit Linares DO Oct 08, 2016 17:36
[2016-10-09] VITALS (7 sets, daily range): BP systolic 104–133; BP diastolic 69–86; PULSE 48–67; RESP 16–20; O2SAT 96–98
[2016-10-09] MEDS: Heparin 5,000 Unit/mL Inj SUBQ SCH ×3 (00:14→18:23)
--- NOTE | 2016-10-09 04:00 | NUR ---
Activity Pt. is steady on feet, decreased wobbling in legs observed. Pt. moves well to bathroom for toileting needs with sba w/ fww. Will continue to monitor.
[2016-10-09 05:22] LABS: APPEARANCE,URINE CLEAR (CLEAR,HAZY); COLOR,URINE STRAW (YELLOW); OCCULT BLOOD,URINE SMALL (NEGATIVE); UROBILINOGEN,URINE NORMAL (NORMAL)
[2016-10-09] MEDS: Senna-Docusate 8.6-50 mg Tablet PO SCH (09:16)
--- NOTE | 2016-10-09 09:22 | NUR ---
ZHOU signed by pt's ENDY Armstrong. Massiel Rhodes MANAGER CLINICAL
[2016-10-09] MEDS: Calcitonin 200 IU 3.7 mL Nasal Spray NASAL SCH (09:25)
--- NOTE | 2016-10-09 10:34 | PCM.PNMED ---
Subjective Date of Service Oct 09, 2016 Subjective Pt doing well this morning. No complaints or concerns. Exam Vital Signs Vital Sign - Last Date Time Temp Pulse Resp B/P Pulse Ox O2 Delivery O2 Flow Rate FiO2 10/09/16 09:19 48 10/09/16 08:01 36.6 18 122/69 98 Room Air Intake and Output 10/08/16 10/08/16 10/09/16 Cumulative From/Thru 15:00 23:00 07:00 09/24/16 15:21 - 10/09/16 06:30 Intake Total 1411 ml 600 ml 05639 ml Output Total 125 ml 43448 ml Balance 1411 ml 475 ml -3512 ml Intake Oral 709 ml 600 ml 21573 ml IV Total 702 ml 22574 ml Output Urine Total 125 ml 51205 ml Stool Total 1 ml # Voids 3 4 11 # Bowel Movements 1 0 10 Exam GENERAL: NAD, Pt laying in bed comfortably HEENT: AT/NC, PERRLA, EOMI, Mucus Membranes are moist CARDIAC: RRR; No M/R/G PULM: CTAB; No wheezes or rhonchi bilaterally ABD: Soft, Nontender, Nondistended, Positive bowel sounds in all quadrants, No Hepatosplenomegaly appreciated EXT: No C/C/E; No calf tenderness bilaterally SKIN: Warm, Dry, [place], and Intact NEURO: Alert and oriented x3; Following all commands PSYCH: Normal mood and affect IVs and Medications Medications Reviewed: Medications were reviewed in detail Lab and Diagnostics Result Diagram: 10/07/16 0505 10/09/16 0527 X-Rays, CTs and MRIs CT 09/23 [facility] showed constipation/obstipation no pancreatitis Assessment & Plan 75-year-old homeless male presents 09/24 confused with abdominal pain - found to be roaming the streets confused and presented to a stranger's doorstep who helped the patient seek medical attention. 1. Alzheimer's Disease - Pt is at baseline mentation - Continue Aricept which was started by Psychiatry - Monitor closely - Pt is no longer requiring a sitter - Continue PRN IM Olazapine per Psychiatry 2. Bipolar Disorder - Continue Klonapin - Continue [place] - Continue Olanzepine PRN - Psychiatry on board - [place] level remains therapeutic 3. Urinary Retention - Secondary to BPH - Continue Flomax at current dose - Continue Feldman catheter - Pt to follow-up with Urology as an outpatient for further management 4. Hypercalcemia - Very likely related to [place] - Ca level remains elevated, and pt has been on IV fluids, these were switched to 1/2 NS by Nephrology on 10/07/2016 and now have been stopped - Push PO fluid intake - Nephrology on board and managing - BMP in AM 5. Acute Kidney Injury on CKD - Nephrology on board - Repeat BMP in AM - Push PO fluid intake - Likely related to obstructive uropathy from BPH 6. Nephrogenic Diabetes Insipidus - Secondary to [place] - Nephrology managing 7. Disposition - Anticipate pt will be medically stable for discharge in AM however placement will be an issue GI Prophylaxis: H2 jad VTE Prophylaxis: Sub-Q Heparin (Unfractionated) VTE Mechanical Devices: Intermittant Pneumatic CD Resuscitation Status: CPR: Attempt Resuscitation Chase Hawkins MD Oct 09, 2016 10:34
--- NOTE | 2016-10-09 12:15 | NUR ---
Social Work- Readiness for Discharge Data: EMR reviewed. Pt is on day 15 of hospitalization for AMS per H&P. Pt is not medically stable, anticipate discharge on Tuesday. Pt's IVF have been D/C, pt to proceed with PO fluids. Pt was evaluated at bedside by Manuel, sales executive insurance at [facility] [phone]. Claudia, extrusion die coordinator at [facility] evaluated pt at bedside this AM. Claudia states that pt is not a candidate for respite at this time. SEVERO spoke with Laila, admissions at [facility], regarding pt. Laila informed SEVERO that Manuel and the clinical team at [facility] have accepted pt with MD Mcrae to follow, pt to discharge Tuesday. SEVERO updated pt and son at bedside, both agreeable to plan. Pt to discharge Tuesday to [facility] with MD Mcrae to follow. Paperwork and PASRR in chart. SW will continue to follow. Assessment: Pt who would benefit from SNF. Plan: Pt to discharge Tuesday to [facility] with MD Mcrae to follow. Paperwork and PASRR in chart. SW will continue to follow. MAIN [place]
--- NOTE | 2016-10-09 12:23 | PCM.PNNEPH ---
Subjective Date of Service Oct 09, 2016 Subjective Patient has a considerably depressed affects this morning as compared to how he was yesterday. He does not offer any complaints and denies any chest pain or shortness of breath. His disposition is pending at time of my evaluation. Exam Vital Signs Vital Sign - Last Date Time Temp Pulse Resp B/P Pulse Ox O2 Delivery O2 Flow Rate FiO2 10/09/16 09:19 48 10/09/16 08:01 36.6 18 122/69 98 Room Air Intake and Output 10/08/16 10/08/16 10/09/16 Cumulative From/Thru 15:00 23:00 07:00 09/24/16 15:21 - 10/09/16 06:30 Intake Total 1411 ml 600 ml 23352 ml Output Total 125 ml 33932 ml Balance 1411 ml 475 ml -3512 ml Intake Oral 709 ml 600 ml 87305 ml IV Total 702 ml 01660 ml Output Urine Total 125 ml 51527 ml Stool Total 1 ml # Voids 3 4 11 # Bowel Movements 1 0 10 Exam Lungs are clear to auscultation. Heart is regular rhythmical with a soft systolic murmur. Abdomen soft without tenderness rebound guarding masses or hepatosplenomegaly. Extremities show any evidence of any clubbing cyanosis or edema. Skin turgor is good nutritional evidence of any rashes. Lab and Diagnostics Result Diagram: 10/07/16 0505 10/09/16 0527 X-Rays, CTs and MRIs CT 09/23 [facility] showed constipation/obstipation no pancreatitis Plan Impression Impression #1 nephrogenic DI #2 hyponatremia which is stable #3 hypercalcemia which is stable number for acute kidney injury secondary to dehydration which has resolved. Recommendations #1 I would like to continue him on his current medical therapy. Jagjit Linares DO Oct 09, 2016 12:23
--- NOTE | 2016-10-09 17:42 | NUR ---
Mentation Patient largely alert, oriented and appropriate this shift. Patient oriented to self, place and year. Patient family in room for much of shift. Care is ongoing.
[2016-10-09] MEDS: Alum-Mag Hydrox-Simeth 30 mL Suspension PO PRN (20:58)
--- NOTE | 2016-10-09 23:30 | NUR ---
paged about indigestion Pt. pressed call light and reported indigestion after meal. Shantanu CLANCY paged. Shantanu CLANCY ordered PO Maalox. PO Maalox admin, and pt. went to sleep afterwards. Will continue to monitor.
[2016-10-10] VITALS (7 sets, daily range): BP systolic 117–169; BP diastolic 70–80; PULSE 57–72; RESP 16–20; O2SAT 95–98
[2016-10-10] MEDS: Heparin 5,000 Unit/mL Inj SUBQ SCH ×3 (01:23→16:25)
[2016-10-10] MEDS: Calcitonin 200 IU 3.7 mL Nasal Spray NASAL SCH (08:41)
[2016-10-10] MEDS: Senna-Docusate 8.6-50 mg Tablet PO SCH (08:43)
--- NOTE | 2016-10-10 10:08 | PCM.PNMED ---
Subjective Date of Service Oct 10, 2016 Subjective Pt doing okay today. He states he is depressed today since his son went back to [place] yesterday. He otherwise has no complaints or concerns at this time. Exam Vital Signs Vital Sign - Last Date Time Temp Pulse Resp B/P Pulse Ox O2 Delivery O2 Flow Rate FiO2 10/10/16 08:38 36.7 57 16 137/70 97 Room Air Intake and Output 10/09/16 10/09/16 10/10/16 Cumulative From/Thru 15:00 23:00 07:00 09/24/16 15:21 - 10/10/16 06:53 Intake Total 1100 ml 640 ml 29793 ml Output Total 3 ml 46311 ml Balance 1097 ml 640 ml -1775 ml Intake Oral 1100 ml 640 ml 37481 ml IV Total 44385 ml Output Urine Total 3 ml 08477 ml Stool Total 1 ml # Voids 5 16 # Bowel Movements 4 14 Exam GENERAL: NAD, Pt laying in bed comfortably HEENT: AT/NC, PERRLA, EOMI, Mucus Membranes are moist CARDIAC: RRR; No M/R/G PULM: CTAB; No wheezes or rhonchi bilaterally NEURO: Alert and oriented x2; Following all commands PSYCH: Normal mood and affect IVs and Medications Medications Reviewed: Medications were reviewed in detail Lab and Diagnostics Result Diagram: 10/07/16 0505 10/10/16 0538 X-Rays, CTs and MRIs CT 09/23 [facility] showed constipation/obstipation no pancreatitis Assessment & Plan 75-year-old homeless male presents 09/24 confused with abdominal pain - found to be roaming the streets confused and presented to a stranger's doorstep who helped the patient seek medical attention. 1. Alzheimer's Disease - Pt is at baseline mentation - Continue Aricept which was started by Psychiatry - Monitor closely - Pt is no longer requiring a sitter - Continue PRN IM Olazapine per Psychiatry 2. Bipolar Disorder - Continue Klonapin - Continue [place] - Continue Olanzepine PRN - Psychiatry on board - [place] level remains therapeutic 3. Urinary Retention - Secondary to BPH - Continue Flomax at current dose - Continue Feldman catheter - Pt to follow-up with Urology as an outpatient for further management 4. Hypercalcemia - Very likely related to [place] - Ca level remains elevated, and pt has been on IV fluids, these were switched to 1/2 NS by Nephrology on 10/07/2016 and now have been stopped - Continue to push PO fluid intake - Nephrology on board and feels pt is medically stable for discharge from their prospective - Repeat BMP in AM 5. Acute Kidney Injury on CKD - Stable - Nephrology on board - Repeat BMP in AM - Continue to push PO fluid intake 6. Nephrogenic Diabetes Insipidus - Secondary to [place] - Nephrology managing 7. Disposition - Anticipate will discharge to SNF in AM GI Prophylaxis: H2 jad VTE Prophylaxis: Sub-Q Heparin (Unfractionated) VTE Mechanical Devices: Intermittant Pneumatic CD Resuscitation Status: CPR: Attempt Resuscitation Chase Hawkins MD Oct 10, 2016 10:08
--- NOTE | 2016-10-10 13:33 | NUR ---
ACTIVITY Patient is alert and oriented X 3. Denies pain. Tolerating liquids PO and his diet well. Denies nausea. No emesis noted. Denies SOB. Patient has been ambulating with SBA and the FWW. Tolerated activity well.
[2016-10-10] MEDS: Alum-Mag Hydrox-Simeth 30 mL Suspension PO PRN ×2 (16:33→22:47)
--- NOTE | 2016-10-10 22:16 | NUR ---
CARE TRANSFERED TO; Ajit Irby rn at this time. Addendum: 10/10/16 at 2218 by JUAN J BENITEZ RN CORRECTION' Care transfered to Kwabena Ramirez rn at this time.
[2016-10-11] VITALS (8 sets, daily range): BP systolic 62–136; BP diastolic 31–74; PULSE 55–75; RESP 17; O2SAT 95–98
[2016-10-11] MEDS: Heparin 5,000 Unit/mL Inj SUBQ SCH ×3 (04:24→17:44)
--- NOTE | 2016-10-11 06:22 | NUR ---
Activity Patient alert and aware that he will be transferring to SNF this am. Denies pain and or discomfort at this time.
[2016-10-11] MEDS ORDERED: Insulin Human REGular-Omnicell 100 Unit/mL IV ONE (08:05)
[2016-10-11] MEDS ORDERED: Albuterol 0.5% (5mg/mL) 20 mL Inhalation Solution NEB ONE (08:05)
[2016-10-11] MEDS: Senna-Docusate 8.6-50 mg Tablet PO SCH (08:22)
--- NOTE | 2016-10-11 10:30 | NUR ---
ZHOU signed verbally with jeremy Armstrong via phone, Son back in [place]. MAIN [place]obo
[2016-10-11] MEDS: Calcitonin 200 IU 3.7 mL Nasal Spray NASAL SCH (10:59)
--- NOTE | 2016-10-11 11:05 | PCM.PNMED ---
Subjective Date of Service Oct 11, 2016 Subjective Pt doing well. No complaints at this time. Pt denies any palpitations. Pts K is elevated this morning. Exam Vital Signs Vital Sign - Last Date Time Temp Pulse Resp B/P Pulse Ox O2 Delivery O2 Flow Rate FiO2 10/11/16 05:59 36.7 75 17 136/74 96 Room Air Intake and Output 10/10/16 10/10/16 10/11/16 Cumulative From/Thru 15:00 23:00 07:00 09/24/16 15:21 - 10/11/16 05:58 Intake Total 2777 ml 1037 ml 82633 ml Output Total 900 ml 2750 ml 81594 ml Balance 1877 ml -1713 ml -1611 ml Intake Oral 2777 ml 1037 ml 93418 ml IV Total 68345 ml Output Urine Total 900 ml 2750 ml 31667 ml Stool Total 1 ml # Voids 1 17 # Bowel Movements 2 0 16 Exam GENERAL: NAD, Pt laying in bed comfortably HEENT: AT/NC, PERRLA, EOMI, Mucus Membranes are moist CARDIAC: RRR; No M/R/G PULM: CTAB; No wheezes or rhonchi bilaterally NEURO: Alert and oriented x2; Following all commands PSYCH: Pts affect is somewhat depressed today IVs and Medications Medications Reviewed: Medications were reviewed in detail Lab and Diagnostics Result Diagram: 10/07/16 0505 10/11/16 0438 X-Rays, CTs and MRIs CT 09/23 [facility] showed constipation/obstipation no pancreatitis Assessment & Plan 75-year-old homeless male presents 09/24 confused with abdominal pain - found to be roaming the streets confused and presented to a stranger's doorstep who helped the patient seek medical attention. 1. Hyperkalemia - Will give D50 with 10 units of regular insulin now - Will give an Albuterol breathing treatment now - Recheck BMP this evening and again in AM - Telemetry monitoring 2. Alzheimer's Disease - Pt is at baseline mentation - Continue Aricept which was started by Psychiatry - Monitor closely - Pt is no longer requiring a sitter - Continue PRN IM Olazapine per Psychiatry 3. Bipolar Disorder - Continue Klonapin - Continue [place] - Continue Olanzepine PRN - Psychiatry on board - [place] level remains therapeutic 4. Urinary Retention - Secondary to BPH - Continue Flomax at current dose - Continue Feldman catheter - Pt to follow-up with Urology as an outpatient for further management 5. Hypercalcemia - Very likely related to [place] - Ca level remains elevated, and pt has been on IV fluids, these were switched to 1/2 NS by Nephrology on 10/07/2016 and now have been stopped - Continue to push PO fluid intake - Nephrology on board and feels pt is medically stable for discharge from their prospective - Repeat BMP in AM 6. Acute Kidney Injury on CKD - Stable - Nephrology on board - Repeat BMP in AM - Continue to push PO fluid intake 7. Nephrogenic Diabetes Insipidus - Secondary to [place] - Nephrology managing 8. Disposition - Anticipate will discharge to SNF in AM if K has normalized GI Prophylaxis: H2 jad VTE Prophylaxis: Sub-Q Heparin (Unfractionated) VTE Mechanical Devices: Intermittant Pneumatic CD Resuscitation Status: CPR: Attempt Resuscitation Chase Hawkins MD Oct 11, 2016 11:04
--- NOTE | 2016-10-11 13:14 | NUR ---
Social Work- Readiness for Discharge Data: EMR reviewed. Pt is on day 17 of hospitalization for AMS per H&P. Pt is not medically stable, anticipate discharge tomorrow. SEVERO spoke with Stephanie in admissions at [facility] who confirms they can accept pt tomorrow. SEVERO provided Stephanie with pt's PCP name Dr. Cruz in [place]. SW updated pt and left message with son at bedside, both agreeable to plan. Paperwork and PASRR in chart. SW will continue to follow. Assessment: Pt who would benefit from SNF. Plan: Pt to discharge to [facility] when medically stable with Dr. Mcrae to follow. Paperwork and PASRR in chart. SW will continue to follow. MAIN [place]obo
--- NOTE | 2016-10-11 15:30 | NUR ---
Seizure/syncopal episode @ 1530 pt was found getting out of bed and walking across room. When staff got to pt he was very confused and barely able to answer questions. Pt was asked to sit in chair next to him in which he did. As soon as pt sat in chair he began shaking seizure like and unresponsive. for about 1 minute. At this point he stopped shaking but was unresponsive, eyes closed, but still sitting up. BP at this time was 62/3 and HR 68. After about 2 minutes of this pt slowly began to respond and answer questions. At this time pt was transferred back to bed. BP has increased up to 90s/60s at this time. All happened within about 5-6minutes of time. Pt is now back to the baseline in which he was this morning answering questions but confused at times. Pt denies any chest pain, SOB or Nausea. Pt did states that he had a migraine prior to this happening. He also spoke of (dream or hallucination) a meeting with people where they decided he had had a heart attack. (staff is assuming that this was a delusion from that last time this happened about a week ago here at hospital as well.) MD notified and aware. Labs drawn BMP and [place]. (Pt unsure why he is on [place]) 1Liter bolus dose of NS started. Care continues. Addendum: 10/11/16 at 1940 by LD QUEVEDO RN Pt stated that he had a migraine prior to episode. Tremors noted at this time as well post episode.
[2016-10-11] MEDS ORDERED: 0.9% Sodium Chloride 1,000 ML IV ONE (16:05)
[2016-10-12] MEDS: Heparin 5,000 Unit/mL Inj SUBQ SCH ×3 (00:55→17:08)
--- NOTE | 2016-10-12 04:54 | NUR ---
Seizure Precaution Patient has seizure pads placed on the sides of the bed rails. Patient has shown no signs of additional seizure symptoms this shift and has been up to bedside commode several times w/FWW stand by assist. Patient cooperative with care throughout shift. Vitals stable. Alert and oriented to self and place. Resting most of night.
[2016-10-12 06:06] VITALS: BP 131/79; PULSE 76; RESP 17; O2SAT 98
[2016-10-12] MEDS: Calcitonin 200 IU 3.7 mL Nasal Spray NASAL SCH (10:07)
[2016-10-12] MEDS: Senna-Docusate 8.6-50 mg Tablet PO SCH (10:08)
[2016-10-12] MEDS ORDERED: Insulin Human REGular-Omnicell 100 Unit/mL IV ONE (10:25)
--- NOTE | 2016-10-12 11:29 | PCM.PNMED ---
Subjective Date of Service Oct 12, 2016 Subjective Pt became quite hypotensive yesterday, which improved with IV fluids. He is currently doing fairly. No complaints or concerns at present. Exam Vital Signs Vital Sign - Last Date Time Temp Pulse Resp B/P Pulse Ox O2 Delivery O2 Flow Rate FiO2 10/12/16 06:06 36.9 76 17 131/79 98 Room Air 10/11/16 15:44 2.00 Intake and Output 10/11/16 10/11/16 10/12/16 Cumulative From/Thru 15:00 23:00 07:00 09/24/16 15:21 - 10/12/16 06:05 Intake Total 2225 ml 400 ml 12136 ml Output Total 700 ml 1450 ml 86245 ml Balance 1525 ml -1050 ml -1136 ml Intake Oral 1200 ml 400 ml 20438 ml IV Total 1025 ml 74238 ml Output Urine Total 700 ml 1450 ml 46722 ml Stool Total 1 ml # Voids 17 # Bowel Movements 1 17 Exam GENERAL: NAD, Pt laying in bed comfortably HEENT: AT/NC, PERRLA, EOMI, Mucus Membranes are moist CARDIAC: RRR; No M/R/G PULM: CTAB; No wheezes or rhonchi bilaterally NEURO: Alert and oriented x2; Following all commands PSYCH: Flat affect IVs and Medications Medications Reviewed: Medications were reviewed in detail Lab and Diagnostics Result Diagram: 10/07/16 0505 10/12/16 0454 X-Rays, CTs and MRIs CT 09/23 [facility] showed constipation/obstipation no pancreatitis Assessment & Plan 75-year-old homeless male presents 09/24 confused with abdominal pain - found to be roaming the streets confused and presented to a stranger's doorstep who helped the patient seek medical attention. 1. Hyperkalemia - Will give another half ampule of D50 with 10 units of regular insulin now - Recheck BMP this evening and again in AM - Telemetry monitoring 2. Hypotension - Pts Lisinopril was stopped yesterday - He has been bolused with 2 liters of IV fluids - Continue to monitor BP closely 3. Alzheimer's Disease - Pt is at baseline mentation - Continue Aricept which was started by Psychiatry - Monitor closely - Pt is no longer requiring a sitter - Continue PRN IM Olazapine per Psychiatry 4. Bipolar Disorder - Continue Klonapin - Continue [place] - Continue Olanzepine PRN - Psychiatry on board - [place] level remains therapeutic 5. Urinary Retention - Secondary to BPH - Continue Flomax at current dose - Continue Feldman catheter - Pt to follow-up with Urology as an outpatient for further management 6. Hypercalcemia - Very likely related to [place] - Ca level remains elevated, and pt has been on IV fluids, these were switched to 1/2 NS by Nephrology on 10/07/2016 and now have been stopped - Continue to push PO fluid intake - Nephrology was consulted and feels pt is medically stable for discharge from their prospective - Repeat BMP in AM 7. 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 Disposition - Anticipate will discharge to SNF in AM if K has normalized and pt does not have any more episodes of hypotension GI Prophylaxis: H2 jad VTE Prophylaxis: Sub-Q Heparin (Unfractionated) VTE Mechanical Devices: Intermittant Pneumatic CD Resuscitation Status: CPR: Attempt Resuscitation Chase Hawkins MD Oct 12, 2016 11:28
[2016-10-12 13:29] VITALS: BP 129/68; PULSE 67; RESP 18; O2SAT 99
--- NOTE | 2016-10-12 15:24 | NUR ---
Physical Therapy: Pt is to be discharged from PT caseload to nursing for continued ambulation with FWW and SBA as he has met all goals for PT. Pt currently tolerating 400 feet with FWW. Recommend ambulation 2-3 times per day.
--- NOTE | 2016-10-12 18:35 | NUR ---
Mentation Patient alert and oriented all of this shift. Patient oriented to self, place and time, knew today was his birthday. No seizure activity, syncopal or hypotensive events noted today. Care is ongoing.
[2016-10-12 19:45] VITALS: BP 125/74; PULSE 70; RESP 16; O2SAT 95
[2016-10-13] MEDS: Heparin 5,000 Unit/mL Inj SUBQ SCH ×3 (00:27→16:53)
[2016-10-13 05:13] VITALS: BP 131/77; PULSE 84; RESP 18; O2SAT 96
--- NOTE | 2016-10-13 07:29 | NUR ---
Ambulation Patient up to bedside commode several times this shift. Multiple smaller stools and good urine output. Patient alert to self and place. Stand by assist w/FWW.
[2016-10-13] MEDS: Calcitonin 200 IU 3.7 mL Nasal Spray NASAL SCH (08:46)
[2016-10-13] MEDS: Senna-Docusate 8.6-50 mg Tablet PO SCH (08:47)
--- NOTE | 2016-10-13 09:32 | NUR ---
ZHOU: Patient unable to sign own ZHOU, asked SEWAGE SCREEN OPERATOR to follow up with Son via phone.
--- NOTE | 2016-10-13 09:35 | NUR ---
ZHOU signed verbally with jeremy Armstrong via phone, Son back in [place]. MAIN [place]obo
[2016-10-13] MEDS ORDERED: Furosemide 10 mg/mL 2 mL Inj IV ONE (10:20)
[2016-10-13] MEDS ORDERED: Insulin Human REGular-Omnicell 100 Unit/mL IV ONE (10:30)
--- NOTE | 2016-10-13 11:14 | NUR ---
Social Work- Readiness for Discharge Data: EMR reviewed. Pt is on day 19 of hospitalization for AMS per H&P. Pt is not medically stable, anticipate discharge in 1-2 more days. SEVERO spoke with Stephanie in admissions at [facility] who confirms they can accept pt when medically stable.. SEVERO updated son Nathaniel via phone. Paperwork and PASRR in chart. SW will continue to follow. Assessment: Pt who would benefit from SNF. Plan: Pt to discharge to [facility] when medically stable with Dr. Mcrae to follow. Paperwork and PASRR in chart. SEVERO will continue to follow. MAIN Lobo
--- NOTE | 2016-10-13 12:28 | PCM.PNMED ---
Subjective Date of Service Oct 13, 2016 Subjective Pt doing well. No complaints at this time. Exam Vital Signs Vital Sign - Last Date Time Temp Pulse Resp B/P Pulse Ox O2 Delivery O2 Flow Rate FiO2 10/13/16 05:13 36.7 84 18 131/77 96 Room Air 10/11/16 15:44 2.00 Intake and Output 10/12/16 10/12/16 10/13/16 Cumulative From/Thru 15:00 23:00 07:00 09/24/16 15:21 - 10/13/16 05:12 Intake Total 910 ml 400 ml 90430 ml Output Total 2000 ml 900 ml 47064 ml Balance -1090 ml -500 ml -2726 ml Intake Oral 910 ml 400 ml 38571 ml IV Total 17540 ml Output Urine Total 2000 ml 900 ml 52245 ml Stool Total 1 ml # Voids 17 # Bowel Movements 1 0 18 Exam GENERAL: NAD, Pt laying in bed comfortably HEENT: AT/NC, PERRLA, EOMI, Mucus Membranes are moist CARDIAC: RRR; No M/R/G PULM: CTAB; No wheezes or rhonchi bilaterally NEURO: Alert and oriented x1; Following all commands PSYCH: Normal mood and affect IVs and Medications Medications Reviewed: Medications were reviewed in detail Lab and Diagnostics Result Diagram: 10/07/16 0505 10/13/16 0525 X-Rays, CTs and MRIs CT 09/23 [facility] showed constipation/obstipation no pancreatitis Assessment & Plan 75-year-old homeless male presents 09/24 confused with abdominal pain - found to be roaming the streets confused and presented to a stranger's doorstep who helped the patient seek medical attention. 1. 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 Hypotension - Stable - Pts Lisinopril was stopped yesterday - He was bolused with 2 liters of IV fluids on 10/11/2016 - Continue to monitor BP closely 3. Alzheimer's Disease - Pt is at baseline mentation - Continue Aricept which was started by Psychiatry - Monitor closely - Pt is no longer requiring a sitter - Continue PRN IM Olazapine per Psychiatry 4. Bipolar Disorder - Continue Klonapin - Continue [place] - Continue Olanzepine PRN - Psychiatry on board - [place] level remains therapeutic 5. Urinary Retention - Secondary to BPH - Continue Flomax at current dose - Continue Feldman catheter - Pt to follow-up with Urology as an outpatient for further management 6. Hypercalcemia - Very likely related to [place] - Ca level remains elevated, and pt has been on IV fluids, these were switched to 1/2 NS by Nephrology on 10/07/2016 and now have been stopped - Continue to push PO fluid intake - Nephrology was consulted and feels pt is medically stable for discharge from their prospective - Repeat BMP in AM 7. Acute Kidney Injury on CKD - Stable - Nephrology has signed off - Repeat BMP in AM - Continue to push PO fluid intake 8. 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 Disposition - Anticipate will discharge to SNF in AM GI Prophylaxis: H2 jad VTE Prophylaxis: Sub-Q Heparin (Unfractionated) VTE Mechanical Devices: Intermittant Pneumatic CD Resuscitation Status: CPR: Attempt Resuscitation Chase Hawkins MD Oct 13, 2016 12:28
[2016-10-13 14:01] VITALS: BP 119/68; PULSE 63; RESP 18; O2SAT 97
--- NOTE | 2016-10-13 14:10 | NUR ---
NUTRITION FOLLOW-UP: Assess: 75 YO M admitted for altered mental status. Pt is at his baseline mental status. He continues on dysphagia mechanical diet with good PO at ~50% of his meals. Wt has been stable throughout stay. PMHX: BPH, Bipolar, PE, Alzheimers. DIET: Dysphagia mechanical. PO intake ~50% LABS: Reviewed. K 5.4, Bun 29, Director Of Outreach 1.55, Glu 108, Ca 11.8 MEDICATIONS: Reviewed. GI: BM x 2 (10/12) ANTHROPOMETRICS: 66kg, BMI: 21.5kg/m2. Admit wt: 68.7 kg. ESTIMATED NEEDS: Calories: 6203-6730 kcal/day (25-30 kcal/kg BW) Protein: 67-80 g/day (1.0-1.2 g/kg BW) NUTRITION DIAGNOSIS: 1) Inadequate oral intake related to decreased ability to consume sufficient energy as evidenced by poor PO intake X 7 days--IMPROVING INTERVENTION: 1) Continue to send ensure all trays to promote increased po intake. MONITOR/EVALUATE: PO intake, diet tolerance, labs, GI, nutrition status. Follow per moderate nutrition risk guidelines.
--- NOTE | 2016-10-13 16:21 | PCM.PNNEPH ---
Subjective Date of Service Oct 13, 2016 Subjective Was asked by the primary service to reevaluate the patient's mild hyperkalemia. The patient has underlying chronic kidney disease important to chronic lithium use. 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 As this is in the upper limit of normal range. Do not feel this needs to be treated. Unfortunately would not start a thiazide on him as this will markedly FOR his lithium levels. She gets adequate fluids this should not be a problem. Patient to be discharged from my point of view once his social situation is taken care of. Exam Vital Signs Vital Sign - Last Date Time Temp Pulse Resp B/P Pulse Ox O2 Delivery O2 Flow Rate FiO2 10/13/16 14:01 36.4 63 18 119/68 97 Room Air 10/11/16 15:44 2.00 Intake and Output 10/12/16 10/12/16 10/13/16 Cumulative From/Thru 15:00 23:00 07:00 09/24/16 15:21 - 10/13/16 05:12 Intake Total 910 ml 400 ml 74267 ml Output Total 2000 ml 900 ml 07004 ml Balance -1090 ml -500 ml -2726 ml Intake Oral 910 ml 400 ml 08070 ml IV Total 20697 ml Output Urine Total 2000 ml 900 ml 23013 ml Stool Total 1 ml # Voids 17 # Bowel Movements 1 0 18 Lab and Diagnostics Result Diagram: 10/07/16 0505 10/13/16 0525 X-Rays, CTs and MRIs CT 09/23 [facility] showed constipation/obstipation no pancreatitis Jagjit Linares DO Oct 13, 2016 16:21
--- NOTE | 2016-10-13 17:33 | NUR ---
Mentation Patient alert and oriented this shift, oriented to self, place and time. Patient denies any nausea, pain, chest pain or other difficulties. Patient using urinal and call light appropriately. Care is ongoing.
[2016-10-13 19:25] VITALS: BP 122/69; PULSE 59; RESP 17; O2SAT 97
[2016-10-14] MEDS: Heparin 5,000 Unit/mL Inj SUBQ SCH ×2 (00:33→09:26)
--- NOTE | 2016-10-14 03:53 | NUR ---
Nutrition Pt stated he is on a "hunger strike". He was not happy with his SURGICAL AIDE this AM and decided he was not going to eat. I spoke with him as did SURGICAL AIDE this shift, explaining it was not healthy to go on a hunger strike. He said "I suppose you're right." He agreed to eat chicken noodle soup, jello and a pudding. Encouraged fluids and Pt had goo intake. resting comfortably and mentation clearer this shift.
[2016-10-14 06:15] VITALS: BP 119/74; PULSE 63; RESP 17; O2SAT 95
[2016-10-14] MEDS ORDERED: FINA5TAB9 PO (08:26)
[2016-10-14] MEDS ORDERED: LIT300 PO (08:26)
[2016-10-14] MEDS ORDERED: CITA20TA PO (08:26)
[2016-10-14] MEDS ORDERED: KLO5T PO (08:26)
[2016-10-14] MEDS ORDERED: CALC3.8S NASAL (08:26)
[2016-10-14] MEDS ORDERED: DONE5TAB4 PO (08:26)
--- NOTE | 2016-10-14 08:27 | PCM.DIMED ---
Discharge Instructions Date of Service Oct 14, 2016 Dates of Hospitalization Sep 24, 2016 at 18:23 Discharge Diagnosis Discharge Diagnosis 1. Bipolar Disorder 2. Alzheimer's Disease 3. Essential Hypertension 4. Type IV Renal Tubular Acidosis 5. Hypercalcemia, 6. Chronic Kidney Disease Diet Heart Healthy Activity No restrictions Call your provider Fever or Chills, Shortness of breath, Bleeding, Chest pain, Vomitting, Excessive diarrhea, Weakness (unilateral), Other (abdominal pain or confusion) Patient Instructions Follow-up plan Patient needs a PCP. He is being discharged to SNF. Should be seen there in the next 5-10 days Follow-up with PCP in: 1 week Provider: Wilman Larsen MD Follow-up in: 2 weeks (pts caregiver to call for an appointment.) Chase Hawkins MD Oct 14, 2016 08:27
[2016-10-14 08:40] VITALS: BP 133/68; PULSE 63; RESP 18; O2SAT 97
[2016-10-14] MEDS: Calcitonin 200 IU 3.7 mL Nasal Spray NASAL SCH (09:21)
[2016-10-14] MEDS: Senna-Docusate 8.6-50 mg Tablet PO SCH (09:23)
--- NOTE | 2016-10-14 10:36 | NUR ---
Faxed orders to [facility] and placed copy in the chart. [facility] will transport at 1330. Updated SEWING MACHINE OPERATOR ZIPPER and RN
--- NOTE | 2016-10-14 11:03 | NUR ---
Social Work: Initial Assessment Data & Assessment: EMR reviewed. Pt is on day 20 of hospitalization for AMS per H&P. Pt has orders to discharge today. Patient will discharge to [facility] via cabulance scheduled by [facility] for 1:30. SEVERO attempted to call patient's son, Nathaniel [phone], but he was not available via phone. SW left a message notifying patient's son that he would discharge today. Paperwork was faxed to [facility] by UR specialist. SEVERO will continue to follow. Plan: Patient will discharge to [facility] via cabulance at 1:30p.m. SEVERO will continue to follow. Suzy Dunlap LMSW, PAUL Addendum: 10/14/16 at 1213 by SUZY DUNLAP SEVERO spoke with Patient's son via phone and notified him that the patient would be transported to [facility] at 1:30. He voiced understanding and was in agreement with the patient discharging to [facility].
--- NOTE | 2016-10-14 11:40 | PCM.DC.MED ---
Discharge Summary Date of Service Oct 14, 2016 Dates of Hospitalization Date of Hospital Admission Sep 24, 2016 at 18:23 Date of Discharge: Oct 14, 2016 Providers: Admitting Physician: Karen Watters MD Primary Care Physician: N[place]arah Attending Physician: Karen Watters MD Diagnosis at Time of Discharge Diagnosis at Time of Discharge 1. Bipolar Disorder 2. Alzheimer's Disease 3. Essential Hypertension 4. Type IV Renal Tubular Acidosis 5. Hypercalcemia, 6. Chronic Kidney Disease Consultations 1. Psychiatry 2. Nephrology Procedures XRay, CTs & MRIs CT 09/23 [facility] showed constipation/obstipation no pancreatitis Brief History 75-year-old homeless male who was seen in the ER and held for psych bed transferred to [facility] I believe for a psychiatric bed and instead admitted to medical floor for abdominal pain/possible pancreatitis based on slightly elevated lipase. Hospital Course 75-year-old homeless male presents 09/24 confused with abdominal pain - found to be roaming the streets confused and presented to a stranger's doorstep who helped the patient seek medical attention. 1. Hyperkalemia - Secondary to Type IV RTA, per discussion with Nephrology today - Pt was given Lasix 20 mg IV x1 dose on 10/13/2016 - K was normal on day of discharge - Nephrology feels his level of hyperkalemia is acceptable at this point 2. Hypotension - Stable - Pts Lisinopril was stopped - He was bolused with 2 liters of IV fluids on 10/11/2016 - Continue to monitor BP closely 3. Alzheimer's Disease - Pt is at baseline mentation - Continue Aricept which was started by Psychiatry 4. Bipolar Disorder - Continue Klonapin - Continue Elcho - Elcho level remains therapeutic 5. Urinary Retention - Secondary to BPH - Continue Flomax at current dose - Continue Feldman catheter at discharge - Pt to follow-up with Urology as an outpatient for further management 6. Hypercalcemia - Very likely related to Elcho - Ca level remains elevated, and pt has been on IV fluids, these were switched to 1/2 NS by Nephrology on 10/07/2016 and now have been stopped - Continue to push PO fluid intake - Nephrology was consulted and feels pt is medically stable for discharge from their prospective 7. Acute Kidney Injury on CKD - Resolved - Nephrology has signed off 8. 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 Disposition - Pt is discharged to SNF in good/stable condition Exam Vital Signs (Last) Date Time Temp Pulse Resp B/P Pulse Ox O2 Delivery O2 Flow Rate FiO2 10/14/16 08:40 36.6 63 18 133/68 97 Room Air 10/11/16 15:44 2.00 Exam GENERAL: NAD, Pt laying in bed comfortably HEENT: AT/NC, PERRLA, EOMI, Mucus Membranes are moist CARDIAC: RRR; No M/R/G PULM: CTAB; No wheezes or rhonchi bilaterally ABD: Soft, Nontender, Nondistended, Positive bowel sounds in all quadrants, No Hepatosplenomegaly appreciated EXT: No C/C/E; No calf tenderness bilaterally SKIN: Warm, Dry, [place], and Intact NEURO: Alert and oriented x2; Following all commands PSYCH: Normal mood and affect Test 09/24/16 16:09 09/24/16 16:47 09/25/16 04:55 09/28/16 11:14 Magnesium Level 2.5mg/dL (1.6-2.6) Troponin T 0.010ug/L (0.0-0.011) Pro-B-Type Natriuretic Peptide 87.38pg/mL (0-486) Triglycerides Level 93mg/dL (0-149) Cholesterol Level 117mg/dL (100-199) LDL Cholesterol, Calculated 58.400mg/dL (0-99) VLDL Cholesterol 18.600mg/dL HDL Cholesterol 40mg/dL (>39) Cholesterol/HDL Ratio 2.93 (0.0-4.4) Lipase 84U/L (13-60) Salicylates Level < 3.0ug/mL (30-250) Acetaminophen Level < 15.0ug/mL Rx (10-25) Alcohols < 10mg/dL (0-10) Lactic Acid Level 2.2mmol/L (0.4-2.0) Thyroid Stimulating Hormone (TSH) 0.826uIU/mL (0.450-4.500) Free Thyroxine Index 2.4 (1.2-4.9) Thyroxine (T4) 7.2ug/dL (4.5-12.0) Triiodothyronine (T3) Uptake 33% (24-39) Calcium (Send out) 11.2mg/dL (8.6-10.2) Ionized Calcium 1.46mmol/L (1.17-1.32) Parathyroid Hormone Interpretation Comment (.) Total Intact Parathyroid Hormone 59pg/mL (15-65) Test 09/30/16 05:30 10/02/16 05:13 10/02/16 11:50 10/03/16 17:45 Vitamin D 25-Hydroxy 48.9ng/mL (30.0-100.0) Total Bilirubin 0.5mg/dL (0.0-1.2) Aspartate Amino Transf (AST/SGOT) 22U/L (0-50) Alanine Aminotransferase (ALT/SGPT) 22U/L (0-44) Alkaline Phosphatase 77U/L (25-160) Vitamin B12 Level 892pg/mL (211-946) Hold Urine Received (Received) Urine Culture Reflexed Indicated Test 10/04/16 13:56 10/07/16 05:05 10/08/16 05:05 10/09/16 05:00 Ammonia 52ug/dL (18-53) White Blood Count 8.0th/mm3 (3.8-10.1) Red Blood Count 4.02mil/mm3 (4.40-5.80) Hemoglobin 13.5g/dL (13.8-17.2) Hematocrit 42.6% (41.0-50.0) Mean Corpuscular Volume 106.0fL (81-100) Mean Corpuscular Hemoglobin 33.6pg (27.0-35.0) Mean Corpuscular Hemoglobin Concent 31.7% (32.0-37.0) Red Cell Distribution Width 12.9% (12.3-15.4) Platelet Count 191bil/L (150-400) Neutrophils (%) (Auto) 62.7% (40-74) Lymphocytes (%) (Auto) 20.6% (14-46) Monocytes (%) (Auto) 10.0% (4-12) Eosinophils (%) (Auto) 5.8% (0-5) Basophils (%) (Auto) 0.7% (0-3) Total Protein 5.0g/dL (6.0-8.5) Albumin 2.9g/dL (2.9-4.4) Globulin (PEP) 2.1g/dL (2.2-3.9) Albumin/Globulin Ratio 1.4 (0.7-1.7) Ysovc-9-Mpvudccxj 0.2g/dL (0.0-0.4) Vwefw-1-Lktuldzog 0.7g/dL (0.4-1.0) Beta Globulins 0.7g/dL (0.7-1.3) Gamma Globulins 0.5g/dL (0.4-1.8) Serum Monoclonal Protein Not observedg/dL Protein Electrophoresis Comment Comment (.) Protein Electrophoresis Interpret Comment (.) Prostate Specific Antigen 3.0ng/mL (0.0-4.0) Free Prostate Specific Antigen 0.94ng/mL (N/A) Percent Free Prostate Specific Ag 31.3% (.) Urine Color Straw (YELLOW) Urine Appearance Clear (CLEAR,HAZY) Urine pH 4.0 (5.0-8.0) Urine Specific [place] 1.005 (1.003-1.035) Urine Protein Negativemg/dL (NEG,TRACE) Urine Glucose (UA) Negativemg/dL (NEGATIVE) Urine Ketones Negativemg/dL (NEGATIVE) Urine Occult Blood Small (NEGATIVE) Urine Nitrite Negative (NEGATIVE) Urine Bilirubin Negative (NEGATIVE) Urine Urobilinogen Normalmg/dL (NORMAL) Urine Leukocyte Esterase Small (NEGATIVE) Urine RBC 0-2/hpf (0-2) Urine WBC 6-10/hpf (0-5) Urine Epithelial Cells None/hpf (NONE-MOD) Urine Crystals None seen (NONE SEEN) Urine Bacteria Moderate/hpf (NONE-FEW) Urine Hyaline Casts None/lpf (NONE) Urine Granular Casts None seen (NONE SEEN) Urine Waxy Casts None seen (NONE SEEN) Urine Red Blood Cell Casts None seen (NONE SEEN) Urine White Blood Cell Casts None seen (NONE SEEN) Urine Mucus None seen (None Seen) Urine Trichomonas None seen (NONE SEEN) Urine Yeast None (NONE SEEN) Urinalysis Comment None Test 10/09/16 05:27 10/14/16 05:00 Uric Acid 6.0mg/dL (2.6-7.2) Sodium Level 134mEq/L (134-144) Potassium Level 4.9mEq/L (3.5-5.2) Chloride Level 98mEq/L (97-108) Carbon Dioxide Level 21mmol/L (18-29) Blood Urea Nitrogen 32mg/dL (8-27) Creatinine 1.69mg/dL (0.76-1.27) Estimat Glomerular Filtration Rate 42mL/min (>59) Glucose Level 112mg/dL (60-99) Calcium Level 11.9mg/dL (8.5-10.1) Elcho Level 0.7mEq/L (0.5-1.5) Discharge Medications Discharge Medications Calcitonin,[place],Synthetic (Calcitonin-[place]) 3.7 Ml [place].pump 1 SPRAY NASAL DAILY Prescribed by: SHELDON SIMMONS MD Citalopram Hydrobromide (Celexa) 20 Mg Tablet 20 MG PO DAILY Prescribed by: SHELDON SIMMONS MD Donepezil (Aricept) 5 Mg Tablet 5 MG PO HS Prescribed by: SHELDON SIMMONS MD Finasteride (Finasteride) 5 Mg Tablet 5 MG PO DAILY Prescribed by: SHELDON SIMMONS MD Elcho Carbonate (Elcho Carbonate) 300 Mg Tablet 300 MG PO BID (Reported) Elcho Carbonate (Elcho Carbonate) 300 Mg Cap 300 MG PO DAILY Prescribed by: SHELDON SIMMONS MD Tamsulosin ER (Tamsulosin ER) 0.4 Mg Cap.er.24h 0.4 MG PO DAILY (Reported) As needed Clonazepam (Clonazepam) 0.5 Mg Tablet 0.5 MG PO BID PRN PRN For Anxiety or Agitation Prescribed by: SHELDON SIMMONS MD Followup Plan Follow-up plan Patient needs a PCP. He is being discharged to SNF. Should be seen there in the next 5-10 days Discharge Diet: Heart Healthy Discharge Activity: No restrictions Follow-up with PCP in: 1 week Provider: Wilman Larsen MD Follow-up in: 2 weeks (pts caregiver to call for an appointment.) Time spent 35 minutes Sheldon Simmons MD Oct 14, 2016 11:40
--- NOTE | 2016-10-14 13:58 | NUR ---
Disharge Pt transferred to care at [facility] at 1400. All belongings sent with pt including nasal spray and home medications retrieved from pharmacy. Report called to Taylor and all questions answered. Pt is a&Ox2 today, cooperative with staff and eager to leave.
== END 2016-10-14 14:07 | DRG 438 ==
LOC: SED 15:11 → OSC 18:23 → OBSVTOIN 18:23
PROVIDERS: ADMIT Urology; ATTEND Urology
DX: K85.90 Acute pancreatitis without necrosis or infection, unspecified (principal); G93.40 Encephalopathy, unspecified; N17.9 Acute kidney failure, unspecified; N25.1 Nephrogenic diabetes insipidus; E87.0 Hyperosmolality and hypernatremia; F02.81 Dementia in other diseases classified elsewhere, unspecified severity, with behavioral disturbance; F31.9 Bipolar disorder, unspecified; E83.52 Hypercalcemia; Z86.711 Personal history of pulmonary embolism; N40.1 Benign prostatic hyperplasia with lower urinary tract symptoms; R39.14 Feeling of incomplete bladder emptying; Z59.0 Homelessness; T43.595S Adverse effect of other antipsychotics and neuroleptics, sequela; G30.9 Alzheimer's disease, unspecified

== ENCOUNTER 2016-10-16 23:16 | Inpatient (IN) | payer MEDICARE ==
[~2016-10-16] VITALS: Ht 175.3 cm; Wt 63.3 kg
[~2016-10-16 23:16] MED LIST: CALC3.8S NASAL; CITA20TA PO; DONE5TAB4 PO; FINA5TAB9 PO; KLO5T PO; LIT300 PO; LITH300T2 PO; TAMS0.4C29 PO
[2016-10-16 23:30] VITALS: BP 74/83; PULSE 61; RESP 14; O2SAT 96
[2016-10-16 23:57] LABS: BASOPHILS % (AUTO) 0.1 % (0-3); EOSINOPHILS % (AUTO) 0 % (0-5); MONOCYTES % (AUTO) 5.9 % (4-12); Mean Corpuscular Hemoglobin 33.6 pg (27.0-35.0); Mean Corpuscular Volume 97.1 fL (81-100); Platelet Count 392 bil/L (150-400)
[2016-10-17] VITALS (12 sets, daily range): BP systolic 82–145; BP diastolic 44–76; PULSE 67–80; RESP 15–17; O2SAT 99–100
--- NOTE | 2016-10-17 00:09 | ED.REPORT ---
HPI-General Illness Date of Service Oct 17, 2016 ED Provider: Israel Mccord DO The patient is a 76 year old male w/ a hx of Alzheimer's Disease, HTN, Type IV Renal Tubular Acidosis, hypercalcemia, and chronic kidney disease who presents to the ED via EMS from [facility] due to multiple episodes of altered LOC. Pt cannot provide hx or ROS due to mental status. Nursing Notes Stated Complaint: DECREASED LOC Chief Complaint: General Complaint Nursing Notes Reviewed: Yes Allergies: Coded Allergies: hydrocodone (Verified Allergy, Unknown, 09/24/16) Scheduled Calcitonin,[place],Synthetic (Calcitonin-[place]) 3.7 Ml [place].pump 1 SPRAY NASAL DAILY Citalopram Hydrobromide (Celexa) 20 Mg Tablet 20 MG PO DAILY Donepezil (Aricept) 5 Mg Tablet 5 MG PO HS Finasteride (Finasteride) 5 Mg Tablet 5 MG PO DAILY [place] Carbonate ([place]berry Carbonate) 300 Mg Cap 300 MG PO DAILY Tamsulosin ER (Tamsulosin ER) 0.4 Mg Cap.er.24h 0.4 MG PO DAILY Scheduled PRN Acetaminophen (Acetaminophen) 325 Mg Capsule 650 MG PO Q4H PRN PRN For Pain Clonazepam (Clonazepam) 0.5 Mg Tablet 0.5 MG PO BID PRN PRN For Anxiety or Agitation General Time Seen by MD: 00:09 Chief Complaint Other (decreased LOC) Hx Obtained From: EMS Unable to Obtain Hx: Patient condition Arrived By: Ambulance Sudden in Onset?: Yes Onset Occurred: Just prior to arrival Symptom Duration: Since onset Past Medical History Past Medical History Notes: Nathaniel (son): , Past Medical History Chronic Kidney Disease Alzheimer's Disease Type IV Renal Tubular Acidosis Hypercalcemia Reports: Hypertension Past Surgical History unknown Smoking History Unknown if Ever Smoker Social History Other Social History: Good social support, Local resident Ambulatory Status Independent Review of Systems Unable to Obtain ROS Patient condition, Mental status Physical Exam Vital Signs Vital Signs Date Time Temp Pulse Resp B/P Pulse Ox O2 Delivery O2 Flow Rate FiO2 10/17/16 01:16 68 17 82/44 100 Room Air 10/17/16 00:40 67 15 104/58 100 Nasal Cannula 2 10/16/16 23:30 36.3 61 14 74/83 96 Room Air Initial VS: Reviewed Abdomen / GI: Soft, Non-tender, No guarding, No rebound Skin: Warm, Dry Neurologic: Alert, Oriented Alertness: Positive: Confused, Sleeping but arousable slow to answer questions Head / Eyes: Atraumatic, Normocephalic no visible signs of head trauma Mouth: Positive: Mucous membranes dry Respiratory / Chest: No rhonchi, No wheezing Diminished Breath Sounds: Positive: Decreased bilateral Heart Sounds / Murmur: Positive: Systolic murmur present.. Lower Extremity / Pelvis / MS: Atraumatic, Inspection NL, No edema Interpretation & Diagnostics Lab Results Interpretation Result Diagram: 10/17/16 0510 10/17/16 0510 Test 10/16/16 23:35 10/17/16 00:53 10/17/16 00:59 Hold Purple Top Tube Received (Received) Hold Blue Top Tube Received (Received) Estimat Glomerular Filtration Rate 15mL/min (>59) Total Bilirubin 0.4mg/dL (0.0-1.2) Aspartate Amino Transf (AST/SGOT) 13U/L (0-50) Alanine Aminotransferase (ALT/SGPT) 27U/L (0-44) Alkaline Phosphatase 79U/L (25-160) Troponin T 0.010ug/L (0.0-0.011) Total Protein 6.9g/dL (6.4-8.4) Hold Red Top Tube Received (Received) Hold [place] Top Tube Received (Received) C-Reactive Protein 11.6mg/dL (0.0-0.5) Procalcitonin 2.52ng/mL (0.00-0.08) Urine Color Dark yellow (YELLOW) Urine Appearance Slightly cloudy Urine pH 7.0 (5.0-8.0) Urine Specific [place] 1.015 (1.003-1.035) Urine Protein Tracemg/dL (NEG,TRACE) Urine Glucose (UA) Negativemg/dL (NEGATIVE) Urine Ketones Negativemg/dL (NEGATIVE) Urine Occult Blood Moderate (NEGATIVE) Urine Nitrite Negative (NEGATIVE) Urine Bilirubin Negative (NEGATIVE) Urine Urobilinogen Normalmg/dL (NORMAL) Urine Leukocyte Esterase Small (NEGATIVE) Urine RBC >50/hpf (0-2) Urine WBC 11-50/hpf (0-5) Urine Epithelial Cells Few/hpf (NONE-MOD) Urine Crystals None seen (NONE SEEN) Urine Bacteria Many/hpf (NONE-FEW) Urine Hyaline Casts >20/lpf (NONE) Urine Granular Casts None seen (NONE SEEN) Urine Waxy Casts None seen (NONE SEEN) Urine Red Blood Cell Casts None seen (NONE SEEN) Urine White Blood Cell Casts None seen (NONE SEEN) Urine Mucus None seen (None Seen) Urine Trichomonas None seen (NONE SEEN) Urine Yeast None (NONE SEEN) Urinalysis Comment None Urine Culture Reflexed Indicated Procedures Peripheral / EJ IV Start Peripheral / EJ IV Start: proc ultrasound guided peripheral IV left antecubital direct visualization Time: :30 Procedure Performed by: ED physician # of Attempts: one attempt Re-Eval/Medical Decision Med Decision/Clinical Course 76-year-old male with multiple comorbidities presents to us from a residential for evaluation of hypotension and confusion. Evidently he was recently discharged from our hospital after being treated for dehydration and renal tubular acidosis. I reviewed Dr. Linares's note from his last admission as well as the hospitalist notes. Either way Mr. Mazariegos presents hypotensive and he looks very hypovolemic. We are unable to obtain any other review of systems due to his degree of dementia and illness. Not much accompanying him from the residential. I find him to be confused but responsive. He localizes painful stimuli and he will follow commands. His membranes are parched. His neck veins are flat. Cardiac is surprisingly relatively bradycardic however I hear a faint systolic ejection murmur. His lungs are essentially clear. Never really took a really deep breath. His belly was soft without appreciable masses or tenderness. His stool was heme-negative. Limbs show no signs of trauma. No signs of cellulitis. His neck was supple and he showed no signs of meningitis. He presented hypotensive so therefore we began the septic shock. I am. EKG did not show evidence of an acute coronary syndrome/UT. Chest x-ray looks normal to me. Laboratory work shows a markedly leukocytosis. He has significant acute on chronic renal insufficiency. He has multiple electrolyte derangements that I expect are all related to his volume status. He does have what appears to be a urinary tract infection. I personally placed a large bore IV under ultrasound guidance in the left arm. He had 2 peripheral IVs. He was fluid resuscitated with a total of 30 mL/kg normal saline and then we placed him on 1-1/2 times maintenance. His blood pressure responded nicely. He started to produce some dilute urine. He was still critically ill. He received IV Zosyn. I consulted with nephrology as well as our hospitalist. He will be admitted for further care and disposition. Counseled Regarding: Diagnosis, Lab results, Need for admission Discharge & Departure Primary Impression: Sepsis due to urinary tract infection Additional Impressions: Confusion and disorientation Renal insufficiency Acute renal failure Acute renal failure type: unspecified Qualified Code: N17.9 - Acute kidney failure, unspecified Hyperkalemia Disposition: ADMITTED TO HOSPITAL Discharge Condition All VS Reviewed: Yes Condition: Stable Referrals: NOPCP (PCP) Crit Care Except Billable Proc Time Spent: 135-164 minutes Services Performed: Patient management by me, Time spent at bedside, Reviewing test results, Reviewing imaging, Discussing patient care, Documentation in record, Time with fam/surrogate Scribe Attestation Portion of this note were transcribed by Claribel Cole. I, Dr. Mccord, personally performed the history, physical exam, and medical decision-making: I reviewed and confirmed the accuracy for the information in the transcribed note. Signed by: francesca Mora, 10/17/16 0300 copies to: [facility] Israel Mccord DO Oct 17, 2016 00:09 Claribel Cole Oct 17, 2016 00:28 None seen (NONE SEEN) Urine Waxy Casts None seen (NONE SEEN) Urine Red Blood Cell Casts None seen (NONE SEEN) Urine White Blood Cell Casts None seen (NONE SEEN) Urine Mucus None seen (None Seen) Urine Trichomonas None seen (NONE SEEN) Urine Yeast None (NONE SEEN) Urinalysis Comment None Urine Culture Reflexed Indicated Procedures Peripheral / EJ IV Start Peripheral / EJ IV Start: proc ultrasound guided peripheral IV left antecubital direct visualization Time: 01:30 Procedure Performed by: ED physician # of Attempts: one attempt Re-Eval/Medical Decision Counseled Regarding: Diagnosis, Lab results, Need for admission Discharge & Departure Primary Impression: Hyperkalemia Additional Impressions: Sepsis due to urinary tract infection Renal insufficiency Disposition: ADMITTED TO HOSPITAL Discharge Condition All VS Reviewed: Yes Condition: Stable Referrals: NOPCP (PCP) Crit Care Except Billable Proc Time Spent: 135-164 minutes Services Performed: Patient management by me, Time spent at bedside, Reviewing test results, Reviewing imaging, Discussing patient care, Documentation in record, Time with fam/surrogate Scribe Attestation Portion of this note were transcribed by Claribel Cole. I, Dr. Mccord, personally performed the history, physical exam, and medical decision-making: I reviewed and confirmed the accuracy for the information in the transcribed note. Signed by: francesca Mora, 10/17/16 0300 copies to: [facility] Israel Mccord DO Oct 17, 2016 00:09 Claribel Cole Oct 17, 2016 00:28
[2016-10-17] MEDS ORDERED: Piperacillin-Tazo 3.375 Gm Inj 3.375 GM in Dextrose 5% Minibag Plus 50 ML IV ONE (00:15)
[2016-10-17] MEDS ORDERED: 0.9% Sodium Chloride 250 ML IV ONE (00:15)
[2016-10-17 00:21] LABS: TROPONIN T 0.01 ug/L (0.0-0.011)
[2016-10-17] MEDS ORDERED: 0.9% Sodium Chloride 1,000 ML IV ONE ×2 (01:15→02:35)
[2016-10-17 01:38] LABS: APPEARANCE,URINE SLIGHTLY CLOUDY (CLEAR,HAZY); COLOR,URINE DARK YELLOW (YELLOW); OCCULT BLOOD,URINE MODERATE (NEGATIVE); UROBILINOGEN,URINE NORMAL (NORMAL)
[2016-10-17] MEDS ORDERED: Ondansetron 2 mg/mL 2 mL Inj IVPUSH PRN (02:30)
[2016-10-17] MEDS ORDERED: Polyethylene Glycol (PEG) 17 Gm Powder PO PRN (02:30)
--- NOTE | 2016-10-17 02:53 | PCM.HPMED ---
Subjective Date of Service Oct 17, 2016 Primary Provider: Admitting Physician: Ron Jovle MD Primary Care Physician: Kar Attending Physician: Ron Jovel MD Chief Complaint: altered LOC History of Present Illness: 75 yo M with history of Bipolar disorder on [place], Alzheimer's disease, HTN, Type IV RTA, chronic hypercalcemia, BPH with urinary retention, and CKD who presented from [facility] for altered LOC. Patient was discharged from [facility] on 10/14 to SNF in stable condition, at his baseline mentation, and with an indwelling wang catheter per d/c summary. Per SNF reports, patient was not responsive today so he was sent to the ER for evaluation. In the ER, patient was fairly obtunded and was unable to answer any questions. He was afebrile, but he was hypotensive at 104/58. He did not appear to be in any resp distress and was saturating well on RA. His CBC was remarkable for a white count of 23.4 with 90% neutrophils. His CMP was remarkable for Sodium of 127, Chloride of 89, CO2 21, BUN 77 and Creatinine of 4.10. His creatinine on discharge 2 days ago was 1.69. His lactic acid was 1.5 Nephrology was consulted by the ED and the recommendation was profuse hydration. Patient's UA was remarkable for a pH of 7.0, with moderate blood, trace leukocytes, and 11-50 wbc, and >20 hyaline casts. Ketones were negative. His lithium level was 1.0 Review of Systems: ROS unable to be obtained due to patient's AMS Allergies Coded Allergies: hydrocodone (Verified Allergy, Unknown, 09/24/16) Home Medications Calcitonin,[place],Synthetic (Calcitonin-Daven[place]) 3.7 Ml [place].pump 1 SPRAY NASAL DAILY Prescribed by: SHELDON SIMMONS MD Citalopram Hydrobromide (Celexa) 20 Mg Tablet 20 MG PO DAILY Prescribed by: SHELDON SIMMONS MD Donepezil (Aricept) 5 Mg Tablet 5 MG PO HS Prescribed by: SHELDON SIMMONS MD Finasteride (Finasteride) 5 Mg Tablet 5 MG PO DAILY Prescribed by: SHELDON SIMMONS MD [place] Carbonate ([place] Carbonate) 300 Mg Tablet 300 MG PO BID (Reported) [place] Carbonate ([place] Carbonate) 300 Mg Cap 300 MG PO DAILY Prescribed by: SHELDON SIMMONS MD Tamsulosin ER (Tamsulosin ER) 0.4 Mg Cap.er.24h 0.4 MG PO DAILY (Reported) As needed Clonazepam (Clonazepam) 0.5 Mg Tablet 0.5 MG PO BID PRN PRN For Anxiety or Agitation Prescribed by: SHELDON SIMMONS MD [facility] 1. Bipolar Disorder 2. Alzheimer's Disease 3. Essential Hypertension 4. Type IV Renal Tubular Acidosis 5. Hypercalcemia, 6. Chronic Kidney Disease Surgical History Prostate procedure C-spine surgery Family History Unable to obtain Social History Hx Alcohol Use: Yes Hx Substance Use: No Smoking Status: Unknown if Ever Smoker Living Arrangement: Custodial Facility Homeless Exam Vital Signs Vital Sign - Last Date Time Temp Pulse Resp B/P Pulse Ox O2 Delivery O2 Flow Rate FiO2 10/17/16 01:16 68 17 82/44 100 Room Air 10/17/16 00:40 2 10/16/16 23:30 36.3 Intake and Output 10/16/16 10/16/16 10/17/16 Cumulative From/Thru 15:00 23:00 07:00 10/17/16 02:32 - 10/17/16 02:39 Intake Total 2000 ml 2000 ml Balance 2000 ml 2000 ml Intake IV Total 2000 ml 2000 ml Exam Gen: Thin frail elderly male who is obtunded, not alert or oriented HEENT: Atraumatic, PERRL, oropharynx mucosa pink but dry. Poor dentition Neck: Soft, trachea midline, no JVD noted CV: RRR with soft systolic murmur Resp: CTAB, no w/r/c noted, normal resp effort Abd; Soft, nondistended, normoactive bs noted, no rashes Msk: Thin frail extremities, no swollen joints noted. Neuro: Patient obtunded, not responsive to questioning : Wang catheter in place draining straw colored urine. Skin: Dry flaky skin. Early erythematous changes and skin breakdown on left hip and gluteal region Psych: Not alert or oriented Lab and Diagnostics Result Diagram: 10/16/16233410/16/162334 12-lead ECG Sinus rhythm with rate of 57, nonspecific IVCD QTc of 512 Assessment & Plan 75 yo M with history of Bipolar disorder on [place], Alzheimer's disease, HTN, Type IV RTA, chronic hypercalcemia, BPH with urinary retention, and CKD who presented from [facility] for altered LOC, TASHA, and possible UTI. #Acute Encephalopathy, Present on Admission Likely a metabolic encephalopathy secondary to TASHA and possible UTI. Could also be due to [place] Peter toxicity. Placed on Telemetry for CV monitoring Ammonia level unremarkable Lactic acid level 1.5 on admission, will continue to trend Further management as below #TASHA on CKD with Metabolic Anion Gap Metabolic Acidosis, POA Creatinine now at 4.10, was previously 1.69 on discharge 2 days ago. Likely due to dehydrated status secondary to poor PO intake and maybe infection. Nephrology consult placed for further recommendations Received 2 Liters of NS in the ED, will continue IV NS at 150mls/hr Continue to monitor magnesium and calcium. If continues to be elevated, may need dialysis if symptomatic. #Possible CAUTI, POA As demonstrated by blood, trace leuks, and wbc on UA. Patient has a leukocytosis of 23.4 on admission, but did not meet SIRS criteria. procalcitonin elevated at 2.52 Will start Rocephin 2 gram daily (10/17), tailor abx as cultures return Blood cultures also pending #BPH with Urinary Retention, POA Will replace wang Will need urology outpatient follow up Continue home medications #Type IV RTA, POA Continue to monitor Potassium and treat as appropriate #Hypotension, POA Likely due to poor PO intake and infection. If not improving with IV fluids, may be early septic shock. #Prolonged QTc, POA QTc of 512 on admission Avoid QT prolongation medications if possible Monitor on telemetry #Left buttock early pressure ulcer, POA Due to AMS and pressure ulcer, may need specialized bed Encourage regular turning, consider wound care eval if worsen #Bipolar Disorder, POA Continue patient's home medications [place] Peter level 1.[address] [place] held initially. Patient reportedly does not do well without lithium. repeat lithium level requested by Dr Linares and is 0.8. [place] level is therapeutic.will resume lithium.Dr Linares agrees with plan #Alzheimer's Disease, POA Continue home Aricept patient seen and examined on 10/17 by day team additional problems # Diarrhea -C. difficile checked and negative. May be contributing to TASHA #TASHA seems to be multifactorial. Dehydration due to poor oral intake/ hypotension and diarrhea seems to be the main cause. DI due to lithium also possible but UOP since admission not consistent with that -Spoke with Dr Linares, considered giving hydrochlorothiazide initially but did not due to hypercalcemia -Continue IV fluids for today. Baseline creatinine 1.5 .initial Cr 4.1 and now improved to 3.78 #Hypercalcemia -Possibly due to lithium -Corrected calcium 11.4 -Continue IV fluids Code Stats: Full Resuscitation Admission Status: Patient is admitted to inpatient status with expected LOS >2 midnights due to his medical complexity and risk of adverse effects and decompensation. Pain Evaluation: Other (AMS) VTE Prophylaxis: Sub-Q Heparin (Unfractionated) Resuscitation Status: CPR: Attempt Resuscitation Attending Statement The patient was seen and examined together with Dr. Markham on 10/17 and I agree with the history, exam and plan as outlined in the note above. Scott Markham DO Oct 17, 2016 02:52 Ron Jovel MD Oct 17, 2016 06:48 Tanner Torres MD Oct 17, 2016 14:02
[2016-10-17 02:59] LABS: Magnesium 4.8 mg/dL (1.6-2.6); Phosphorus 6.5 mg/dL (2.5-4.9)
--- NOTE | 2016-10-17 03:45 | NUR ---
Pt Admission to [facility] Room 2001 Pt arrived to room 2001 in a P500 bed at approximately 0345. Pt's VSS and pt is on 2L NC with SpO2 >92%. Pt is unable to answer questions at this time r/t AMS. Pt has a wang catheter that is patent and draining to gravity and is incontinent of stool. Pt has been started on NS@150ml/hr. Pt is NPO at this time pending a swallow eval. Pt did cough up a moderate amount of sputum that was thick and yellow but was unable to spit it out into a sample cup since pt is unable to follow commands at this time. Pt's tongue does appear to have a whitish coating on it.
[2016-10-17] MEDS: 0.9% Sodium Chloride 1,000 ML IV SCH ×4 (04:19→22:04)
[2016-10-17 05:20] LABS: BASOPHILS % (AUTO) 0.1 % (0-3); EOSINOPHILS % (AUTO) 0.1 % (0-5); MONOCYTES % (AUTO) 6.3 % (4-12); Mean Corpuscular Hemoglobin 34.4 pg (27.0-35.0); Mean Corpuscular Volume 98.9 fL (81-100); NEUTROPHILS % (AUTO) 88.3 % (40-74); Platelet Count 234 bil/L (150-400)
[2016-10-17 05:43] LABS: Phosphorus 5.2 mg/dL (2.5-4.9)
[2016-10-17] MEDS ORDERED: ACET325C PO (07:57)
--- NOTE | 2016-10-17 10:02 | NUR ---
Evaluation completed. Please go to "Notes" then click on "Assessments and Notes" (bottom left corner of screen). Then select appropriate discipline tab on top of screen.
[2016-10-17] MEDS: cefTRIAXone Inj 2,000 MG in Dextrose 5% Minibag Plus 50 ML IV SCH (10:08)
[2016-10-17] MEDS: Sodium Chloride LOK Flush 10 mL Syringe IVFLUSH SCH ×2 (10:10→17:01)
[2016-10-17] MEDS: Heparin 5,000 Unit/mL Inj SUBQ SCH ×2 (10:10→17:01)
--- NOTE | 2016-10-17 10:42 | DRSVH ---
PROCEDURE: X-RAY CHEST ONE VIEW, PORTABLE ([id number]) INDICATIONS: septic TECHNIQUE: One view of the chest was acquired. COMPARISON: [facility], CR, XR CHEST 1VW (PORTABLE), 10/03/2016, 15:25. FINDINGS: Surgical changes and devices: None. Lungs and pleura: No pleural effusions or pneumothorax. Lungs are clear. Mediastinum: Mediastinal contours appear normal. Heart size is normal. Bones and chest wall: No suspicious bony lesions. Overlying soft tissues appear unremarkable. IMPRESSION: No acute cardiopulmonary disease. Dictated by: Camilo Kent M.D. on 10/17/2016 at 10:40 Approved by: Camilo Kent M.D. on 10/17/2016 at 10:40
--- NOTE | 2016-10-17 14:30 | NUR ---
Social Work- Initial Assessment Data: See Initial Assessment. Pt is a 76 year old male admitted 10/17/16 for shock, acute renal insufficiency, dehydration per H&P. Pt is on lithium for Bipolar Disorder. Pt's lithium level is (1.0) at this time. Pt's lithium level to be monitored to remain therapeutic. Pt's insurance is [employer]. Pt has no established PCP care, though there is PCP history with MD Cruz. SEVERO met with pt at bedside regarding discharge plan, SW role explained. Pt was increasingly somnolent during assessment, SW was unable to complete assessment at this time. Pt is well known to this senior writer. Pt was recently discharged from [facility] to [facility] for continued rehab. Pt's son Nathaniel Mazariegos is NOK [phone] and resides in [facility]. 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 Pt used a walker after last admission, though he is typically independent at base. SEVERO spoke with Laila, admissions at [facility], who is willing to accept pt back with Thor to follow. SW will continue to follow. Assessment: Pt who comes from [facility]. Plan: Pt will likely discharge back to [facility] with MD Mcrae to follow pending clinical course. Paperwork in chart. SEVERO will continue to follow. MAIN Major Addendum: 10/17/16 at 1442 by HERMILO LOPEZ SS Amended: Links added.
[2016-10-17] MEDS: Calcitonin 200 IU 3.7 mL Nasal Spray NASAL SCH (14:31)
--- NOTE | 2016-10-17 18:34 | CONS ---
[address] [address] CONSULTATION REPORT PATIENT: MAXIM CALVIN : 1940 MR#: [id number] ADMIT: 10/17/2016 JOB ID: [id number] DATE OF SERVICE: 10/17/2016 HISTORY: The patient is a rather unfortunate 76-year-old white male who was readmitted to [facility] for severe dehydration and acute on chronic kidney injury. I am quite familiar with the patient from a very recent hospitalization. Renal consultation is being sought for further evaluation of his acute kidney injury and dehydration. The patient was admitted to the hospital several weeks ago for a similar picture for dehydration, acute on chronic kidney injury. He also had significant hypercalcemia. During his evaluation, it was found that he was on chronic therapy for bipolar disorder with lithium carbonate. 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 In addition, he had mild elevation of his potassium, and it was our feeling that he probably had a component of a type 4 renal tubular acidosis. He was treated with fluids and had some improvement. Because of the hypercalcemia, we held any type of thiazide diuretics and felt that he could be managed by oral fluids. He had done this well in the hospital and was stable at time of discharge. At time of discharge, his creatinine was 1.69. Unfortunately, there are very few records that accompanied the patient, but he was at [facility] and was found to have several episodes of alteration of level of consciousness. He was sent to the emergency department, where his blood pressure was in the 70s. His initial lab showed a sodium of 127, potassium 5.1, BUN and creatinine were 77 and 4.1. I was contacted by the emergency room and agreed with aggressive IV hydration with normal saline. Since that time, his kidney function has begun to improve with a creatinine this morning of 3.78, and a sodium of 136. His calcium is 10.8 also this morning. A lithium level has not been obtained, and I will order that immediately. PAST MEDICAL HISTORY: 1. 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 2. Type 4 renal tubular acidosis. 3. Hypertension with hypertensive heart disease and hypertensive nephrosclerosis. 4. Hypercalcemia with a slight elevation of his parathyroid level and hypertensive heart disease. PAST SURGICAL HISTORY: Unknown. ALLERGIES: He is reportedly allergic to HYDROCODONE. SOCIAL HISTORY: He is unable to provide for his basic care and had been sent to [facility] for further placement. There is a history of alcohol and tobacco use in the remote past. MEDICATIONS: At time of admission include: 1. Calcitonin. 2. Citalopram. 3. Aricept. 4. Finasteride. 5. [place] carbonate. 6. Tamsulosin. FAMILY HISTORY: Noncontributory. REVIEW OF SYSTEMS: Unobtainable. PHYSICAL EXAMINATION: Revealed a somewhat frail, disheveled, cachectic-appearing, 76-year-old, white male who looked considerably more somnolent and disoriented than previous examinations. His blood pressure today was 131/70 with a pulse rate of 77. HEENT examination is remarkable for markedly dry mucous membranes and some bitemporal wasting. Neck is supple without adenopathy, thyromegaly or jugular venous distention. Lungs are clear to auscultation. Heart is regular and rhythmical with a soft systolic murmur. Abdomen is soft, without any tenderness, rebound, guarding, masses or hepatosplenomegaly. Extremities do not show any evidence of any clubbing, cyanosis, or edema. Skin turgor is markedly diminished, and there is no evidence of any rashes. LABORATORY EXAMINATION: This morning his white count is 18.8, hemoglobin and hematocrit and red cell indices are all normal. He has 88% neutrophils. Urinalysis showed a specific gravity 1.015, pH was 7. There were greater than 50 RBCs per high-power field, 11-50 WBCs per high-power field, many bacteria and numerous hyaline casts were noted. Sodium was 136, potassium 4.9, chloride 101, bicarbonate 20, BUN and creatinine were 21 and 3.78. His calcium this morning is 10.8. IMPRESSION: 1. Acute dehydration. 2. Acute hyponatremia. 3. Nephrogenic diabetes insipidus. 4. Acute on chronic kidney injury. 5. Type 4 renal tubular acidosis. 6. Hypercalcemia. 7. Hypermagnesemia. RECOMMENDATION: I would like to continue his IV fluids for least another 24 hours. In light of his markedly abnormal urine, I do feel we should probably start him on ceftazidime 1 g IV once a day until cultures have come back. Once again, I would like to thank you for allowing me to participate in the care of this rather unfortunate patient. I will be following him closely with you.
--- NOTE | 2016-10-17 19:16 | NUR ---
Nuero's/stools Patient a/o to self only having hallucinations this a.m. thinking he saw his dad. Patient more awake and alert this evening, asking about his son. Patient c/o butt and back pain, Tylenol x 2 given. Feldman changed per MD orders, dale uop. Patient incont x 6 of liq stool, sample sent per orders. Patient turning self in bed. Patient taking diet poor, but grarison thicken liqs. VSS, tele SR.
[2016-10-18] VITALS (7 sets, daily range): BP systolic 119–159; BP diastolic 65–89; PULSE 83–96; RESP 16–18; O2SAT 97–99
[2016-10-18] MEDS: Heparin 5,000 Unit/mL Inj SUBQ SCH ×3 (00:15→16:45)
[2016-10-18] MEDS: Sodium Chloride LOK Flush 10 mL Syringe IVFLUSH SCH ×4 (00:17→23:59)
[2016-10-18 02:41] LABS: BASOPHILS % (AUTO) 0.1 % (0-3); EOSINOPHILS % (AUTO) 0.1 % (0-5); MONOCYTES % (AUTO) 6.5 % (4-12); Mean Corpuscular Hemoglobin 34.8 pg (27.0-35.0); Mean Corpuscular Volume 103.9 fL (81-100); NEUTROPHILS % (AUTO) 88.4 % (40-74); Platelet Count 247 bil/L (150-400)
[2016-10-18 03:21] LABS: Magnesium 3.2 mg/dL (1.6-2.6); Phosphorus 2.8 mg/dL (2.5-4.9)
[2016-10-18] MEDS: 0.9% Sodium Chloride 1,000 ML IV SCH (06:24)
--- NOTE | 2016-10-18 07:24 | NUR ---
Mentation/Rest Pt has moments where he is able to answer questions but then pt goes back to not making sense. Pt made a loud crying/moaning sound intermittently throughout the shift. Pt has made an attempt to get OOB while alone in the room but the dennys alarm went off and the pt's needs were addressed. Pt did not rest throughout the shift.
[2016-10-18] MEDS ORDERED: CEFTAZIDIME IV ONE (08:30)
[2016-10-18] MEDS ORDERED: DEXTROSE 5% IV ONE (08:30)
[2016-10-18] MEDS: Calcitonin 200 IU 3.7 mL Nasal Spray NASAL SCH (09:13)
[2016-10-18] MEDS: cefTRIAXone Inj 2,000 MG in Dextrose 5% Minibag Plus 50 ML IV SCH (09:22)
--- NOTE | 2016-10-18 14:58 | PCM.PNNEPH ---
Subjective Date of Service Oct 18, 2016 Subjective The patient states that he feels much improved. He states that he was not happy with his care at the rehabilitation facility because he was not allowed to drink fluids. He states that he will not go back after discharge from [facility]. He denies abdominal pain. Exam Vital Signs Vital Sign - Last Date Time Temp Pulse Resp B/P Pulse Ox O2 Delivery O2 Flow Rate FiO2 10/18/16 11:21 36.7 96 18 119/65 97 Room Air 10/18/16 07:13 1.00 10/17/16 03:49 99 Intake and Output 10/17/16 10/17/16 10/18/16 Cumulative From/Thru 15:00 23:00 07:00 10/17/16 02:32 - 10/18/16 05:10 Intake Total 1919 ml 1217 ml 5136 ml Output Total 2200 ml 2800 ml Balance -281 ml 1217 ml 2336 ml Intake Oral 360 ml 360 ml IV Total 1559 ml 1217 ml 4776 ml Output Urine Total 2200 ml 2800 ml # Bowel Movements 3 4 Exam Gen: Thin frail elderly male, alert and cooperative in no acute distress lying in bed Eyes: PERRLA, anicteric Sclera, noninjected conjunctiva HENT: Normocephalic Atraumatic, oropharynx mucosa dry without central cyanosis. Poor dentition Neck: Soft, trachea midline, no JVD noted CV: RRR with soft systolic murmur Resp: CTAB, no w/r/c noted, normal resp effort Abd; Soft, nondistended, normoactive bs noted, no rashes Msk: Thin frail extremities, no swollen joints noted. : Wang catheter in place draining straw colored urine. 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 1. Urinary tract infection 2. Acute kidney injury on chronic kidney disease 3. nephrogenic diabetes insipitus 4. Type 4 renal tubular acidosis 5. Hyperkalemia 6. Hypercalcemia Plan: 1. Urinary tract infection - secondary to wang catheter - started on ceftazidime and converted to ceftriaxone given TASHA - change wang catheter biweekly minimum - continue tamsulosin and attempt to pull the wang in the next several days with serial bladder scans 2. Acute kidney injury on chronic kidney disease - secondary to fluid deprivation and diabetes insipitus - IV fluid rehydration with 1/2 NS given mild hypernatremia - monitor 3. nephrogenic diabetes insipitus - secondary to chronic lithium - low dose hydrochlorothizaide 25mg daily - monitor for hypercalcemia 4. Type 4 renal tubular acidosis - likely cause of the patient's hyperkalemia - patient has a mild disease and does not need mineralocorticoids to treat - HCTZ 25mg will treat the underlying hyperkalemia and patient should be instructed on low potassium diet - monitor 5. Hyperkalemia - HCTZ 25mg daily as above - monitor 6. Hypercalcemia - hold calcitonin - Sensipar 30mg daily Zana Lin DO Oct 18, 2016 14:58
--- NOTE | 2016-10-18 17:36 | PCM.PNMED ---
Subjective Date of Service Oct 18, 2016 Subjective The patient is confused and somewhat delirious this morning. He denies chest pain, shortness of breath, nausea, abdominal pain. He wants to make sure his son knows he is at [facility]. Exam Vital Signs Vital Sign - Last Date Time Temp Pulse Resp B/P Pulse Ox O2 Delivery O2 Flow Rate FiO2 10/18/16 16:11 36.7 96 18 153/86 97 Room Air 10/18/16 07:13 1.00 10/17/16 03:49 99 Intake and Output 10/17/16 10/17/16 10/18/16 Cumulative From/Thru 15:00 23:00 07:00 10/17/16 02:32 - 10/18/16 05:10 Intake Total 1919 ml 1217 ml 5136 ml Output Total 2200 ml 2800 ml Balance -281 ml 1217 ml 2336 ml Intake Oral 360 ml 360 ml IV Total 1559 ml 1217 ml 4776 ml Output Urine Total 2200 ml 2800 ml # Bowel Movements 3 4 Exam Gen: Thin frail elderly male who is obtunded, not alert or oriented HEENT: Atraumatic, oropharynx mucosa pink but dry. Poor dentition Neck: Soft, trachea midline, no jugular venous distention noted Heart: Regular rate and rhythm with soft systolic murmur Resp: Clear to auscultation bilaterally, normal respiratory effort Abd: Soft, nondistended, normoactive bowel sounds noted Msk: Thin frail extremities, no swollen joints noted. Neuro: Patient obtunded, not responsive to questioning : Wang catheter in place draining straw colored urine. Skin: Dry flaky skin. Early erythematous changes and skin breakdown on left hip and gluteal region Psych: Oriented to himself only Lab and Diagnostics Result Diagram: 10/18/16 0235 10/18/16 0235 12-lead ECG Sinus rhythm with rate of 57, nonspecific IVCD QTc of 512 Assessment & Plan Alex Mazariegos is a 75 year old gentleman with history of bipolar disorder on lithium, alzheimer's disease, hypertension, type IV renal tubular acidosis, chronic hypercalcemia, benign prostatic hypertrophy with urinary retention, and chronic kidney disease who presented from [facility] for altered level of consciousness, acute kidney injury and urinary tract infection. 1. Acute Encephalopathy, present on admission. Active Likely a metabolic encephalopathy secondary to acute kidney injury and possible urinary tract infection. Could also be due to lithium toxicity Ammonia level unremarkable Lactic acid normalized Further management as below 2. Acute on chronic kidney injury with metabolic anion gap metabolic acidosis, present on admission. Active Creatinine rending down. Likely due to dehydrated status secondary to poor oral intake and maybe infection Received 2 liters of normal saline in the Emergency Department, will continue intravenous 1/2 given mild hypernatremia per nephrology Continue to monitor magnesium and calcium. If continues to be elevated, may need dialysis if symptomatic 3. Catheter associated urinary tract infection, present on admission. Active - Discontinue ceftazidime and continue ceftriaxone given acute kidney injury - Per nephrology, change wang catheter biweekly minimum - Per nephrology, continue tamsulosin and attempt to pull the wang out in the next several days with serial bladder scans - Urology and primary care provider outpatient follow up 4. Hypercalcemia, present on admission. Active - Per nephrology, hold calcitonin and start sensipar, 30mg daily by mouth 5. Nephrogenic diabetes insipitus, present on admission. Active - Secondary to chronic lithium - Per nephrology, low dose hydrochlorothizaide, 25mg daily by mouth - Continue to monitor for hypercalcemia 6. Type 4 renal tubular acidosis, present on admission. Active - Likely cause of the patient's hyperkalemia - Per nephrology, hydrochlorothiazide, 25mg by mouth daily will treat the underlying hyperkalemia and patient should be instructed on low potassium diet - Continue to monitor 7. Benign prostatic hyperplasia, present on admission. Active - Wang replaced, urology outpatient follow up - Continue home medications 8. Prolonged QTc, present on admission. Active - QTc of 512 on admission - Avoid QT prolongation medications if possible 9. Left buttock early pressure ulcer, present on admission. Active - Encourage regular turning, consider wound care evaluation if worsen 10. Bipolar disorder, present on admission. Presumed stable - Continue patient's home medications - [place] level 1.0 on admission - [place] held initially. Patient reportedly does not do well without lithium. Repeat lithium level requested by Dr. Linares and is 0.8. [place] level is therapeutic.Resumed lithium.Dr Linares agrees with plan 11. Alzheimer's disease, present on admission. Active - Continue home Aricept 12. Diarrhea, present on admission. Active - C. difficile checked and negative - Loperamide, probiotic Admission Status: Patient is admitted to inpatient status with expected LOS >2 midnights due to his medical complexity and risk of adverse effects and decompensation. Pain Evaluation: Adequate Pain Control VTE Prophylaxis: Sub-Q Heparin (Unfractionated) Resuscitation Status: CPR: Attempt Resuscitation Attending Statement The patient was seen and examined together with Dr. Downs on 10/18/2016 and I agree with the history, exam and plan as outlined in the note above. . Giovanna Downs DO Oct 18, 2016 17:36 Alex Mariscal MD Oct 18, 2016 17:54
--- NOTE | 2016-10-18 17:59 | NUR ---
Nuero's/Activity/Stools/Pain Patient a/o to self and son, requested to call son several times today. MD called for patient and patient spoke with son for a few minutes. Patient restless, anxious and tearful at times. Patient oob with one person assist several times to bsc, cont to freq liq stools, rectal area red and painful, Calmoseptine applied after stools. Immoduim x 1 ordered and given. Tylenol x 1 given for pain with moderate effect. [place] patent clear yellow uop. Patient cont to take diet poor, but takes occassional liqs. Will cont poc.
[2016-10-19] VITALS (7 sets, daily range): BP systolic 105–159; BP diastolic 58–86; PULSE 67–89; RESP 12–18; O2SAT 96–98
[2016-10-19] MEDS: Heparin 5,000 Unit/mL Inj SUBQ SCH ×4 (00:25→23:18)
[2016-10-19 02:53] LABS: BASOPHILS % (AUTO) 0.3 % (0-3); EOSINOPHILS % (AUTO) 0.8 % (0-5); MONOCYTES % (AUTO) 7.5 % (4-12); Mean Corpuscular Volume 106.8 fL (81-100); Platelet Count 285 bil/L (150-400)
--- NOTE | 2016-10-19 05:37 | NUR ---
Activity/pain Pt was restless throughout the night and received clonazepam for s/sx of anxiety. The pt was able to sleep for about 20 mins off and on with many attempts of trying to get out of bed. Pt transferred to BS and loose stool noted in pull ups. [place]/Bed alarms on for safety. Pt wearing non slip socks. Denies chest pain, shortness of breath and general pain. care ongoing.
[2016-10-19] MEDS: Sodium Chloride LOK Flush 10 mL Syringe IVFLUSH SCH ×3 (08:19→23:18)
[2016-10-19] MEDS: cefTRIAXone Inj 2,000 MG in Dextrose 5% Minibag Plus 50 ML IV SCH (08:19)
--- NOTE | 2016-10-19 09:52 | NUR ---
Bowel pain MD notified at rounds that pt continues to c/o rectal mass. Per , RN to complete CURTIS. CURTIS performed. No stool identified, possible mass. MD to perform CURTIS. To continue to monitor.
[2016-10-19] MEDS: Dextrose 5% 1,000 ML IV SCH ×2 (10:02→17:19)
--- NOTE | 2016-10-19 12:37 | NUR ---
ZHOU signed by pt's NOK son Nathaniel EstebanYair by phone. Massiel Rhodes MSW
--- NOTE | 2016-10-19 12:58 | NUR ---
Mental status Md notified that pt continues to refuse meals and continues to be disoriented and unable to hold logical conversation. [place] alarm on. Food and fluids encouraged as much as pt will allow. Will continue to monitor.
--- NOTE | 2016-10-19 13:49 | PCM.PNMED ---
Subjective Date of Service Oct 19, 2016 Exam Vital Signs Vital Sign - Last Date Time Temp Pulse Resp B/P Pulse Ox O2 Delivery O2 Flow Rate FiO2 10/19/16 11:57 36.3 85 18 136/63 98 Room Air 10/18/16 07:13 1.00 10/17/16 03:49 99 Intake and Output 10/18/16 10/18/16 10/19/16 Cumulative From/Thru 15:00 23:00 07:00 10/17/16 02:32 - 10/19/16 06:49 Intake Total 30 ml 2234 ml 2599 ml 9999 ml Output Total 1750 ml 1500 ml 2010 ml 8060 ml Balance -1720 ml 734 ml 589 ml 1939 ml Intake Oral 30 ml 525 ml 720 ml 1635 ml IV Total 1709 ml 1879 ml 8364 ml Output Urine Total 1750 ml 1500 ml 2010 ml 8060 ml # Voids 1 1 # Bowel Movements 2 5 2 13 Lab and Diagnostics Result Diagram: 10/19/16 0225 10/19/16 1300 12-lead ECG Sinus rhythm with rate of 57, nonspecific IVCD QTc of 512 Assessment & Plan Alex Mazariegos is a 75 year old gentleman with history of bipolar disorder on lithium, alzheimer's disease, hypertension, type IV renal tubular acidosis, chronic hypercalcemia, benign prostatic hypertrophy with urinary retention, and chronic kidney disease who presented from [facility] for altered level of consciousness, acute kidney injury and urinary tract infection. VTE Prophylaxis: Sub-Q Heparin (Unfractionated) Resuscitation Status: CPR: Attempt Resuscitation Zana Lin DO Oct 19, 2016 13:49 Lab and Diagnostics Result Diagram: 10/19/16 0225 10/19/16 1300 12-lead ECG Sinus rhythm with rate of 57, nonspecific IVCD QTc of 512 Cardiac Echo Impressions Echocardiogram Report Interpretation Summary Normal sinus rhythm. Normal LV size, wall thickness, wall motion and LV systolic function. EF is 60- 65%. Stage I diastolic dysfunction. No significant valvular abnormalities. Normal chamber sizes. No source of embolism identified. No prior study available for comparison. Reading Physician:06: 24 PM Assessment & Plan Alex Mazariegos is a 75 year old gentleman with history of bipolar disorder on lithium, alzheimer's disease, hypertension, type IV renal tubular acidosis, chronic hypercalcemia, benign prostatic hypertrophy with urinary retention, and chronic kidney disease who presented from [facility] for altered level of consciousness, acute kidney injury and urinary tract infection. VTE Prophylaxis: Sub-Q Heparin (Unfractionated) Resuscitation Status: CPR: Attempt Resuscitation Zana Lin DO Oct 19, 2016 13:49
--- NOTE | 2016-10-19 13:51 | PCM.PNNEPH ---
Subjective Date of Service Oct 19, 2016 Subjective Patient states that he had a bad night. He is complaining of abdominal pain. He denies diarrhea but the nurse states that he has been having frequent loose bowel movements. The patient will not eat lunch but denies nausea. He states that he has a lot on his mind and he is not hungry. Exam Vital Signs Vital Sign - Last Date Time Temp Pulse Resp B/P Pulse Ox O2 Delivery O2 Flow Rate FiO2 10/19/16 11:57 36.3 85 18 136/63 98 Room Air 10/18/16 07:13 1.00 10/17/16 03:49 99 Intake and Output 10/18/16 10/18/16 10/19/16 Cumulative From/Thru 15:00 23:00 07:00 10/17/16 02:32 - 10/19/16 06:49 Intake Total 30 ml 2234 ml 2599 ml 9999 ml Output Total 1750 ml 1500 ml 2010 ml 8060 ml Balance -1720 ml 734 ml 589 ml 1939 ml Intake Oral 30 ml 525 ml 720 ml 1635 ml IV Total 1709 ml 1879 ml 8364 ml Output Urine Total 1750 ml 1500 ml 2010 ml 8060 ml # Voids 1 1 # Bowel Movements 2 5 2 13 Exam Gen: Thin frail elderly male, alert and cooperative but only oriented to person , in no acute distress lying in bed Eyes: PERRLA, anicteric Sclera, noninjected conjunctiva HENT: Normocephalic Atraumatic, oropharynx mucosa dry without central cyanosis. Poor dentition Neck: Soft, trachea midline, JVD noted CV: RRR with soft systolic murmur, heart tones sound more hyperdynamic but without worse murmur, no rubs or gallops noted Resp: CTAB, no w/r/c noted, normal resp effort Abd; Soft, nondistended, hyperactive bs noted, no rashes Msk: Thin frail extremities, no swollen joints noted. : Wang catheter in place draining straw colored urine. Skin: warm and dry Psych: poor judgement and insight depressed mood and flat affect Neuro: No focal neurologic deficits able to move all extremities Lab and Diagnostics Result Diagram: 10/19/16 0225 10/19/16 1300 12-lead ECG Sinus rhythm with rate of 57, nonspecific IVCD QTc of 512 Cardiac Echo Impressions Echocardiogram Report Interpretation Summary Normal sinus rhythm. Normal LV size, wall thickness, wall motion and LV systolic function. EF is 60- 65%. Stage I diastolic dysfunction. No significant valvular abnormalities. Normal chamber sizes. No source of embolism identified. No prior study available for comparison. 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 1. Urinary tract infection 2. Acute kidney injury on chronic kidney disease 3. nephrogenic diabetes insipidus 4. Type 4 renal tubular acidosis 5. Hyperkalemia 6. Hypercalcemia 7. Urinary Retention 8. Altered Mental Status 9. acute diarrhea Plan: 1. Urinary tract infection - secondary to wang catheter - started on ceftazidime and converted to ceftriaxone given TASHA, sensitivities indicated a Coag negative Staph Aureus which is sensitive for Cefazolin - change wang catheter biweekly minimum and attempt to remove wang prior to discharge discussed below 2. Acute kidney injury on chronic kidney disease - secondary to fluid deprivation and diabetes insipitus - IV fluid rehydration with D5W given mild hypernatremia worsening on 07/05 NS - repeat BMP and evaluate - monitor 3. nephrogenic diabetes insipidus - secondary to chronic lithium - low dose hydrochlorothiazide 25mg daily - monitor for hypercalcemia 4. Type 4 renal tubular acidosis - likely cause of the patient's hyperkalemia - patient has a mild disease and does not need mineralocorticoids to treat - HCTZ 25mg will treat the underlying hyperkalemia and patient should be instructed on low potassium diet - monitor 5. Hyperkalemia - discussed in #4 - HCTZ 25mg daily as above - monitor 6. Hypercalcemia secondary to hyperparathyroidism - possibly secondary to lithium induced hyperparathyroidism with PTH of 89 - consider an endocrine evaluation - may consider a parathyroid scan for adenoma versus hyperplasia - may consider a bone scan given length of time on lithium - hold calcitonin - HCTZ may potentiate the hypercalcemia however the DI and RTA will also cause considerable dysfunction of not treated appropriately, continue HCTZ - continue Sensipar 30mg daily - see #8 for AMS 7. Urinary Retention - continue tamsulosin and attempt to pull the wang in the next several days with serial bladder scans 8 Altered Mental Status - patient has had an acute change in his personality and is significantly altered orientation to place and time compared to day prior - consider like acute delirium versus worsening baseline dementia - no focal neurologic deficits noted consistent with CVA - Calcium is only mildly worse 10.4 from day prior 10.2 and repeated after Sensipar to 9.7 not likely the cause 9 acute diarrhea - again calcium is only mildly elevated from day prior - cdiff negative - Biofire Ordered to rule out infectious etiology which might explain the AMS Zana Lin DO Oct 19, 2016 13:51
--- NOTE | 2016-10-19 14:10 | PCM.PNMED ---
Subjective Date of Service Oct 19, 2016 Subjective Overnight patient was anxious and restless. He continues to have frequent loose bowel movements. His appetite is poor. He continues to ramble; incoherent speech at times. Exam Vital Signs Vital Sign - Last Date Time Temp Pulse Resp B/P Pulse Ox O2 Delivery O2 Flow Rate FiO2 10/19/16 11:57 36.3 85 18 136/63 98 Room Air 10/18/16 07:13 1.00 10/17/16 03:49 99 Intake and Output 10/18/16 10/18/16 10/19/16 Cumulative From/Thru 15:00 23:00 07:00 10/17/16 02:32 - 10/19/16 06:49 Intake Total 30 ml 2234 ml 2599 ml 9999 ml Output Total 1750 ml 1500 ml 2010 ml 8060 ml Balance -1720 ml 734 ml 589 ml 1939 ml Intake Oral 30 ml 525 ml 720 ml 1635 ml IV Total 1709 ml 1879 ml 8364 ml Output Urine Total 1750 ml 1500 ml 2010 ml 8060 ml # Voids 1 1 # Bowel Movements 2 5 2 13 Exam Gen: Thin frail elderly male in no acute distress HEENT: Atraumatic, oropharynx mucosa pink but dry. Poor dentition Neck: Soft, trachea midline, no jugular venous distention noted Heart: Regular rate and rhythm with soft systolic murmur Resp: Clear to auscultation bilaterally, normal respiratory effort Abd: Soft, nondistended, normoactive bowel sounds noted Msk: Thin frail extremities, no swollen joints noted Neuro: Patient obtunded, not responsive to questioning : Wang catheter in place draining straw colored urine. Skin: Dry flaky skin. Early erythematous changes and skin breakdown on left hip and gluteal region Psych: Poor judgement and insight, depressed mood and flat affect Lab and Diagnostics Result Diagram: 10/19/16 0225 10/19/16 1300 X-Rays, CTs and MRIs X-RAY KUB IMPRESSION: The bowel gas pattern suggests mild colonic wall thickening. Dictated and approved by: Camilo Kent M.D. on 10/19/2016 at 14:38 X-RAY CHEST IMPRESSION: No acute cardiopulmonary disease. Dictated and approved by: Camilo Kent M.D. on 10/17/2016 at 10:40 12-lead ECG Sinus rhythm with rate of 57, nonspecific IVCD QTc of 512 Cardiac Echo Impressions Echocardiogram Report Interpretation Summary Normal sinus rhythm. Normal LV size, wall thickness, wall motion and LV systolic function. EF is 60- 65%. Stage I diastolic dysfunction. No significant valvular abnormalities. Normal chamber sizes. No source of embolism identified. No prior study available for comparison. Reading Physician:06: 24 PM Assessment & Plan Alex Mazariegos is a 75 year old gentleman with history of bipolar disorder on lithium, alzheimer's disease, hypertension, type IV renal tubular acidosis, chronic hypercalcemia, benign prostatic hypertrophy with urinary retention, and chronic kidney disease who presented from [facility] for altered level of consciousness, acute kidney injury and urinary tract infection. 1. Acute Encephalopathy, present on admission. Active -Likely a metabolic encephalopathy secondary to acute kidney injury and possible urinary tract infection. Could also be due to lithium toxicity -Ammonia level unremarkable -Lactic acid normalized -Further management as below 2. Acute on chronic kidney injury with metabolic anion gap metabolic acidosis, present on admission. Improving -Creatinine rending down. Likely due to dehydrated status secondary to poor oral intake and maybe infection -IV fluid rehydration with D5W 3. Catheter associated urinary tract infection, present on admission. Active - Continue ceftriaxone. Sensitivities indicated a Coag negative Staph Aureus which is sensitive for Cefazolin - Per nephrology, change wang catheter biweekly minimum - We will attempt to remove catheter prior to discharge - Urology and primary care provider outpatient follow up 4. Hypercalcemia, secondary to hyperparathyroidism, present on admission. Improving - PTH 89 - Continue sensipar, 30mg daily by mouth and discontinue hydrochlorothiazide 5. Nephrogenic diabetes insipidus, present on admission. Active - Secondary to chronic lithium - Per nephrology, discontinue hydrochlorothiazide and start amiloride, 5 mg daily by mouth - Continue to monitor for hypercalcemia 6. Type 4 renal tubular acidosis, present on admission. Active - Likely cause of the patient's hyperkalemia which is improved - Continue to monitor 7. Benign prostatic hyperplasia, present on admission. Active - Wang replaced, urology outpatient follow up - Continue home medications 8. Prolonged QTc, present on admission. Active - QTc improved on repeat EKG - Avoid QT prolongation medications if possible 9. Left buttock early pressure ulcer, present on admission. Active - Encourage regular turning, consider wound care evaluation if worsen 10. Bipolar disorder, present on admission. Presumed stable - Continue patient's home medications - [place] level 1.0 on admission - [place] held initially. Patient reportedly does not do well without lithium. Repeat lithium level requested by Dr. Linares and is 0.8. [place] level is therapeutic.Resumed lithium.Dr Linares agrees with plan 11. Alzheimer's disease, present on admission. Active - Continue home aricept 12. Diarrhea, present on admission. Active - C. difficile checked and negative - Continue loperamide, probiotic Admission Status: Patient is admitted to inpatient status with expected LOS >2 midnights due to his medical complexity and risk of adverse effects and decompensation. Pain Evaluation: Adequate Pain Control VTE Prophylaxis: Sub-Q Heparin (Unfractionated) Resuscitation Status: CPR: Attempt Resuscitation Attending Statement The patient was seen and examined together with Dr. Downs on 10/19/2016 and I agree with the history, exam and plan as outlined in the note above. . Giovanna Downs DO Oct 19, 2016 14:10 Alex Mariscal MD Oct 21, 2016 07:38
--- NOTE | 2016-10-19 14:46 | DRSVH ---
PROCEDURE: X-RAY KUB ([id number]) INDICATIONS: diarrhea with abdominal pain/distention TECHNIQUE: One view of the abdomen acquired. COMPARISON: [facility], CR, XR CHEST 1VW (PORTABLE), 09/24/2016, 16:38. FINDINGS: Surgical changes and devices: None. Bowel: There is abundant colonic gas. There is "thumbprinting" suggesting mild colonic wall thickenin g. Soft tissues: No suspicious abdominal calcifications. Visualized solid organ contours appear normal in size. Bones: No suspicious bony lesions. IMPRESSION: The bowel gas pattern suggests mild colonic wall thickening. Dictated by: Camilo Kent M.D. on 10/19/2016 at 14:38 Approved by: Camilo Kent M.D. on 10/19/2016 at 14:44
[2016-10-20 02:56] LABS: Mean Corpuscular Hemoglobin 32.8 pg (27.0-35.0); Mean Corpuscular Volume 105.1 fL (81-100)
[2016-10-20 03:32] VITALS: BP 130/74; PULSE 74; RESP 17; O2SAT 99
--- NOTE | 2016-10-20 04:50 | NUR ---
Mentation/ stooling/ K Pt alert to person and place overnight. Intermittently forgetful, but complaint with care- ringing for assistance. Pt having very scant, loose stools. Imodium given x1 in addition to PRN Tylenol for "pain everywhere" pt sleeping comfortably overnight. K this am noted to be 3.3, resident paged for findings. order received to place pt back on tele and repeat k per k/mag protocol. currently awaiting tele box. Addendum: 10/20/16 at 0643 by GUANAKO MURILLO RN pt placed on tele: showing Sbrady 40/50s with PACs, per television antenna installer when pt was previously on tele, earlier in his admission he was Sr 90s. Night resident made aware of current Tele. K infusing per k/mag protocol
[2016-10-20] MEDS: Dextrose 5% 1,000 ML IV SCH (05:14)
[2016-10-20 05:45] VITALS: PULSE 51
[2016-10-20] MEDS ORDERED: KCl 40 mEq/500 mL D5W(K 3 - 3.7 & Creat < 2) IV ONE (05:55)
[2016-10-20] MEDS: Sodium Chloride LOK Flush 10 mL Syringe IVFLUSH SCH (08:30)
[2016-10-20 08:35] VITALS: BP 90/48; PULSE 47; RESP 22; O2SAT 96
[2016-10-20] MEDS: Heparin 5,000 Unit/mL Inj SUBQ SCH (08:51)
[2016-10-20] MEDS: cefTRIAXone Inj 2,000 MG in Dextrose 5% Minibag Plus 50 ML IV SCH (08:52)
[2016-10-20] MEDS ORDERED: Potassium Chloride 20 mEq/15 mL 15mL Oral Soln PO ONE (09:15)
[2016-10-20 10:30] VITALS: PULSE 51
--- NOTE | 2016-10-20 11:24 | PCM.PNNEPH ---
Subjective Date of Service Oct 20, 2016 Subjective The patient was seen twice today. He states that he had a better night however he is still complaining of abdominal pain. The patient is not oriented to hospital but he was able to remember that his potassium was low. Exam Vital Signs Vital Sign - Last Date Time Temp Pulse Resp B/P Pulse Ox O2 Delivery O2 Flow Rate FiO2 10/20/16 10:30 51 10/20/16 08:35 37.0 22 90/48 96 Room Air 10/18/16 07:13 1.00 10/17/16 03:49 99 Intake and Output 10/19/16 10/19/16 10/20/16 Cumulative From/Thru 15:00 23:00 07:00 10/17/16 02:32 - 10/20/16 05:20 Intake Total 1701 ml 1492 ml 24318 ml Output Total 1850 ml 1250 ml 08508 ml Balance -149 ml 242 ml 2032 ml Intake Oral 240 ml 400 ml 2275 ml IV Total 1461 ml 1092 ml 69163 ml Output Urine Total 1850 ml 1250 ml 06134 ml # Voids 1 # Bowel Movements 6 3 22 Exam Gen: Thin frail elderly male, alert and cooperative but only oriented to person , in no acute distress lying in bed Eyes: PERRLA, anicteric Sclera, noninjected conjunctiva HENT: Normocephalic Atraumatic, oropharynx mucosa dry without central cyanosis. Poor dentition Neck: Soft, trachea midline, mild JVD noted CV: RRR with soft systolic murmur, heart tones sound more quiet compared to previous exam, no rubs or gallops noted Resp: mild course breath sounds in the left base and axilla, no wheezing or rhonchi noted, normal respiratory effort Abd; Soft, nondistended, hyperactive bs noted, no rashes Msk: Thin frail extremities, no swollen joints noted. : Wang catheter in place draining straw colored urine. Skin: warm and dry Psych: poor judgement and insight depressed mood and flat affect Neuro: No focal neurologic deficits able to move all extremities, follows simple commands Lab and Diagnostics Result Diagram: 10/20/1621910/20/16219 X-Rays, CTs and MRIs X-RAY KUB IMPRESSION: The bowel gas pattern suggests mild colonic wall thickening. Dictated and approved by: Camilo Kent M.D. on 10/19/2016 at 14:38 X-RAY CHEST IMPRESSION: No acute cardiopulmonary disease. Dictated and approved by: Camilo Kent M.D. on 10/17/2016 at 10:40 12-lead ECG Sinus rhythm with rate of 57, nonspecific IVCD QTc of 512 Cardiac Echo Impressions Echocardiogram Report Interpretation Summary Normal sinus rhythm. Normal LV size, wall thickness, wall motion and LV systolic function. EF is 60- 65%. Stage I diastolic dysfunction. No significant valvular abnormalities. Normal chamber sizes. No source of embolism identified. No prior study available for comparison. 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 1. Urinary tract infection 2. Acute kidney injury on chronic kidney disease 3. nephrogenic diabetes insipidus 4. Type 4 renal tubular acidosis 5. Hyperkalemia resolved / hypokalemia 10/20 6. Hypercalcemia 7. Urinary Retention 8. Altered Mental Status 9. acute diarrhea Plan: 1. Urinary tract infection - secondary to wang catheter - started on ceftazidime and converted to ceftriaxone given TASHA, sensitivities indicated a Coag negative Staph Aureus which is sensitive for Cefazolin, treat for 7 days - Nurse instructed to pull the wang with serial bladder scans 10/20 - if patient requires a wang at discharge give instruction to changing the catheter weekly or every two weeks 2. Acute kidney injury on chronic kidney disease - secondary to fluid deprivation and diabetes insipitus - IV fluid rehydration with D5W given mild hypernatremia worsening on 07/05 NS - repeat BMP and evaluate - monitor 3. nephrogenic diabetes insipidus - secondary to chronic lithium - Amiloride 5mg daily - monitor for hypercalcemia 4. Type 4 renal tubular acidosis - likely cause of the patient's hyperkalemia - patient has a mild disease and does not need mineralocorticoids to treat - Amiloride 5mg - monitor 5. Hyperkalemia at admission with hypokalemia 10/20 - hyperkalemia resolved and currently hypokalemia on 10/20 - Amiloride 5mg daily as above - monitor 6. Hypercalcemia secondary to hyperparathyroidism - possibly secondary to lithium induced hyperparathyroidism with PTH of 89 - consider an endocrine evaluation - may consider a parathyroid scan for adenoma versus hyperplasia - may consider a bone scan given length of time on lithium - hold calcitonin - given hyponatremia and hypercalcemia HCTZ was discontinued and Amiloride 5mg started daily - continue Sensipar 30mg daily - see #8 for AMS 7. Urinary Retention - continue tamsulosin - Nurse instructed to pull the wang with serial bladder scans 10/20 8 Altered Mental Status - patient has had an acute change in his personality and is significantly altered orientation to place and time compared to PE on previous admission - no focal neurologic deficits noted consistent with CVA - Calcium more elevated at presentation, now better controlled and relatively stable currently when patient was more oriented so unlikely the cause - consider like acute delirium versus worsening baseline dementia 9 acute diarrhea - again calcium is only mildly elevated from day prior - Biofire negative for infectious etiology Zana Lin DO Oct 20, 2016 11:24
[2016-10-20 12:15] VITALS: BP 90/51; PULSE 65; RESP 20; O2SAT 92
--- NOTE | 2016-10-20 12:51 | PCM.DIMED ---
Giovanna Downs DO 10/20/16 1251: Discharge Instructions Date of Service Oct 20, 2016 Dates of Hospitalization Oct 17, 2016 at 01:52 Discharge Diagnosis Discharge Diagnosis 1. Acute Encephalopathy, present on admission. Improved 2. Acute on chronic kidney injury with metabolic anion gap metabolic acidosis, present on admission. Improved 3. Catheter associated urinary tract infection, present on admission. Improved 4. Hypercalcemia, secondary to hyperparathyroidism, present on admission. Improved 5. Nephrogenic diabetes insipidus, present on admission. Active 6. Type 4 renal tubular acidosis, present on admission. Active 7. Benign prostatic hyperplasia, present on admission. Active 8. Prolonged QTc, present on admission. Improved 9. Left buttock early pressure ulcer, present on admission. Improved 10. Bipolar disorder, present on admission. Presumed stable 11. Alzheimer's disease, present on admission. Active 12. Diarrhea, present on admission. Active 13. Elevated transaminases, not present on admission. Active Medication Instructions 1. Please take cephalexin, 500 mg four times a day by mouth for the next 4 days for urinary tract infection 2. Please take amiloride, 5 mg daily by mouth 3. Continue sensipar, 30 mg daily by mouth 3. Stop taking calcitonin Diet No restrictions Activity Limited until seen by PCP Call your provider Fever or Chills, Shortness of breath, Bleeding, Chest pain, Vomitting, Excessive diarrhea, Weakness (unilateral) Patient Instructions Follow-up plan 1. Patient needs a hospital follow up with primary care provider at [facility] and a follow up with Urology for wang catheter removal within 10 days from discharge. Nephrology recommended to change wang catheter weekly or biweekly. 2. Patient's CMP needs to be rechecked by 10/22/2016 at [facility] Follow-up with PCP in: 1 week (PCP at [facility]) Follow-up in: 2 weeks (Urology ) Alex Mariscal MD 10/21/16 0739: Discharge Instructions Attending's Statement The patient was seen and examined together with Dr. Downs on 10/20/2016 and I agree with the history, exam and plan as outlined in the note above. . Giovanna Downs DO Oct 20, 2016 12:51 Alex Maricsal MD Oct 21, 2016 07:39
[2016-10-20] MEDS ORDERED: CEPH500T PO (12:54)
[2016-10-20] MEDS ORDERED: AMIL5TAB2 PO (12:55)
--- NOTE | 2016-10-20 13:08 | PCM.DC.MED ---
Discharge Summary Date of Service Oct 20, 2016 Dates of Hospitalization Date of Hospital Admission Oct 17, 2016 at 01:52 Date of Discharge: Oct 20, 2016 Providers: Admitting Physician: Ron Jovel MD Primary Care Physician: Nopcp Attending Physician: Ron Jovle MD Diagnosis at Time of Discharge Diagnosis at Time of Discharge 1. Acute Encephalopathy, present on admission. Improved 2. Acute on chronic kidney injury with metabolic anion gap metabolic acidosis, present on admission. Improved 3. Catheter associated urinary tract infection, present on admission. Improved 4. Hypercalcemia, secondary to hyperparathyroidism, present on admission. Improved 5. Nephrogenic diabetes insipidus, present on admission. Active 6. Type 4 renal tubular acidosis, present on admission. Active 7. Benign prostatic hyperplasia, present on admission. Active 8. Prolonged QTc, present on admission. Improved 9. Left buttock early pressure ulcer, present on admission. Improved 10. Bipolar disorder, present on admission. Presumed stable 11. Alzheimer's disease, present on admission. Active 12. Diarrhea, present on admission. Active 13. Elevated transaminases, not present on admission. Active Consultations Nephrology, Dr. Linares Procedures XRay, CTs & MRIs X-RAY KUB IMPRESSION: The bowel gas pattern suggests mild colonic wall thickening. Dictated and approved by: Camilo Kent M.D. on 10/19/2016 at 14:38 X-RAY CHEST IMPRESSION: No acute cardiopulmonary disease. Dictated and approved by: Camilo Kent M.D. on 10/17/2016 at 10:40 ECG 12 Lead Sinus rhythm with rate of 57, nonspecific IVCD QTc of 512 Cardiac Echo Impression Echocardiogram Report Interpretation Summary Normal sinus rhythm. Normal LV size, wall thickness, wall motion and LV systolic function. EF is 60- 65%. Stage I diastolic dysfunction. No significant valvular abnormalities. Normal chamber sizes. No source of embolism identified. No prior study available for comparison. Reading Physician:06: 24 PM Brief History Per Admitting Physician: Ron Jovel MD: History of Present Illness: 75 yo M with history of Bipolar disorder on Algood, Alzheimer's disease, HTN, Type IV RTA, chronic hypercalcemia, BPH with urinary retention, and CKD who presented from [facility] for altered LOC. Patient was discharged from [facility] on 04/13 to SNF in stable condition, at his baseline mentation, and with an indwelling wang catheter per d/c summary. Per SNF reports, patient was not responsive today so he was sent to the ER for evaluation. In the ER, patient was fairly obtunded and was unable to answer any questions. He was afebrile, but he was hypotensive at 104/58. He did not appear to be in any resp distress and was saturating well on RA. His CBC was remarkable for a white count of 23.4 with 90% neutrophils. His CMP was remarkable for Sodium of 127, Chloride of 89, CO2 21, BUN 77 and Creatinine of 4.10. His creatinine on discharge 2 days ago was 1.69. His lactic acid was 1.5 Nephrology was consulted by the ED and the recommendation was profuse hydration. Patient's UA was remarkable for a pH of 7.0, with moderate blood, trace leukocytes, and 11-50 wbc, and >20 hyaline casts. Ketones were negative. His lithium level was 1.0 Hospital Course Alex Mazariegos is a 75 year old gentleman with history of bipolar disorder on lithium, alzheimer's disease, hypertension, type IV renal tubular acidosis, chronic hypercalcemia, benign prostatic hypertrophy with urinary retention, and chronic kidney disease who presented from [facility] for altered level of consciousness, acute kidney injury and urinary tract infection. 1. Acute Encephalopathy, present on admission. Improved -Likely a metabolic encephalopathy secondary to acute kidney injury and possible urinary tract infection. Could also be due to lithium toxicity -Ammonia level unremarkable -Lactic acid normalized 2. Acute on chronic kidney injury with metabolic anion gap metabolic acidosis, present on admission. Improved -Creatinine rending down. Likely due to dehydrated status secondary to poor oral intake and maybe infection -IV fluid rehydration with D5W during the hospital stay 3. Catheter associated urinary tract infection, present on admission. Improving - Continued ceftriaxone. Sensitivities indicated a Coag negative Staph Aureus which is sensitive for Cefazolin - Per nephrology, wang catheter needed to be changed biweekly minimum after discharge - Patient discharged with a wang catheter and instructions to follow up with Urology within the next 10 days and primary care provider at [facility] within a week - Discharged with script for cephalexin, 500 mg four times a day orally for the next 4 days to complete treatment for catheter associated urinary tract infection. First-line choice of treatment of complicated urinary tract infection such as fluoroquinolones has not been chosen due to side effects in elderly populations such as nausea, dyspepsia, vomiting or diarrhea, C. difficile infection, hypersensitivity reactions, and central nervous system excitatory effects such as confusion, weakness, tremor, depression. 4. Hypercalcemia, secondary to hyperparathyroidism, present on admission. Improved - PTH 89 - Continued sensipar, 30mg daily by mouth 5. Nephrogenic diabetes insipidus, present on admission. Active - Secondary to chronic lithium - Per nephrology, discontinued hydrochlorothiazide and started amiloride, 5 mg daily by mouth - Discharged with script for amiloride, 5 mg to be taken orally daily 6. Type 4 renal tubular acidosis, present on admission. Active - Likely cause of the patient's hyperkalemia which is improved 7. Benign prostatic hyperplasia, present on admission. Active - Wang replaced, urology outpatient follow up - Continue home medications 8. Prolonged QTc, present on admission. Active - QTc improved on repeat EKG - Avoid QT prolongation medications if possible 9. Left buttock early pressure ulcer, present on admission. Active - Encouraged regular turning, considered wound care evaluation if worsen 10. Bipolar disorder, present on admission. Presumed stable - Continued patient's home medications - Algood level 1.0 on admission - Algood held initially. Patient reportedly did not do well without lithium. Repeat lithium level requested by Dr. Linares and is 0.8. Algood level is therapeutic.Resumed lithium.Dr Linares agreed with plan 11. Alzheimer's disease, present on admission. Active - Continued home aricept 12. Diarrhea, present on admission. Active - C. difficile checked and negative - Continued loperamide, probiotic - Biofire for infectious etiology negative 13. Elevated transaminases, not present on admission. Active -Most likely secondary to drug toxicity: tylenol, ceftriaxone, sensipar -Recommended to have another CMP drawn by Tuesday at [facility] Disposition: [facility] Exam Vital Signs (Last) Date Time Temp Pulse Resp B/P Pulse Ox O2 Delivery O2 Flow Rate FiO2 10/20/16 12:15 36.9 65 20 90/51 92 Room Air 10/18/16 07:13 1.00 10/17/16 03:49 99 Exam Gen: Thin frail elderly male in no acute distress HEENT: Atraumatic, oropharynx mucosa pink but dry. Poor dentition Neck: Soft, trachea midline, no jugular venous distention noted Heart: Regular rate and rhythm with soft systolic murmur Resp: Clear to auscultation bilaterally, normal respiratory effort Abd: Soft, nondistended, normoactive bowel sounds noted Msk: Thin frail extremities, no swollen joints noted : Wang catheter in place draining straw colored urine. Skin: Dry flaky skin. Early erythematous changes and skin breakdown on left hip and gluteal region (improved) Psych: Poor judgement and insight, depressed mood and flat affect Test 10/16/16 23:35 10/17/16 00:53 10/17/16 00:59 10/17/16 05:10 Hold Purple Top Tube Received (Received) Hold Blue Top Tube Received (Received) Troponin T 0.010ug/L (0.0-0.011) Hold Red Top Tube Received (Received) Hold [place] Top Tube Received (Received) C-Reactive Protein 11.6mg/dL (0.0-0.5) Urine Color Dark yellow (YELLOW) Urine Appearance Slightly cloudy Urine pH 7.0 (5.0-8.0) Urine Specific [place] 1.015 (1.003-1.035) Urine Protein Tracemg/dL (NEG,TRACE) Urine Glucose (UA) Negativemg/dL (NEGATIVE) Urine Ketones Negativemg/dL (NEGATIVE) Urine Occult Blood Moderate (NEGATIVE) Urine Nitrite Negative (NEGATIVE) Urine Bilirubin Negative (NEGATIVE) Urine Urobilinogen Normalmg/dL (NORMAL) Urine Leukocyte Esterase Small (NEGATIVE) Urine RBC >50/hpf (0-2) Urine WBC 11-50/hpf (0-5) Urine Epithelial Cells Few/hpf (NONE-MOD) Urine Crystals None seen (NONE SEEN) Urine Bacteria Many/hpf (NONE-FEW) Urine Hyaline Casts >20/lpf (NONE) Urine Granular Casts None seen (NONE SEEN) Urine Waxy Casts None seen (NONE SEEN) Urine Red Blood Cell Casts None seen (NONE SEEN) Urine White Blood Cell Casts None seen (NONE SEEN) Urine Mucus None seen (None Seen) Urine Trichomonas None seen (NONE SEEN) Urine Yeast None (NONE SEEN) Urinalysis Comment None Urine Culture Reflexed Indicated Lactic Acid Level 1.4mmol/L (0.4-2.0) Ammonia 56ug/dL (18-53) Test 10/17/16 11:08 10/18/16 02:30 10/18/16 02:35 10/18/16 09:05 Algood Level 0.8mEq/L (0.5-1.5) Hold [place] Top Tube Received (Received) Phosphorus Level 2.8mg/dL (2.5-4.9) Procalcitonin 0.54ng/mL (0.00-0.08) Parathyroid Hormone (Intact) 89pg/mL (15-65) Test 10/19/16 02:25 10/20/16 02:20 Neutrophils (%) (Auto) 81.0% (40-74) Lymphocytes (%) (Auto) 10.2% (14-46) Monocytes (%) (Auto) 7.5% (4-12) Eosinophils (%) (Auto) 0.8% (0-5) Basophils (%) (Auto) 0.3% (0-3) White Blood Count 9.2th/mm3 (3.8-10.1) Red Blood Count 3.54mil/mm3 (4.40-5.80) Hemoglobin 11.6g/dL (13.8-17.2) Hematocrit 37.2% (41.0-50.0) Mean Corpuscular Volume 105.1fL (81-100) Mean Corpuscular Hemoglobin 32.8pg (27.0-35.0) Mean Corpuscular Hemoglobin Concent 31.2% (32.0-37.0) Red Cell Distribution Width 12.4% (12.3-15.4) Platelet Count 232bil/L (150-400) Sodium Level 136mEq/L (134-144) Potassium Level 3.3mEq/L (3.5-5.2) Chloride Level 105mEq/L (97-108) Carbon Dioxide Level 20mmol/L (18-29) Blood Urea Nitrogen 21mg/dL (8-27) Creatinine 1.37mg/dL (0.76-1.27) Estimat Glomerular Filtration Rate 53mL/min (>59) Glucose Level 116mg/dL (60-99) Calcium Level 8.9mg/dL (8.5-10.1) Magnesium Level 2.0mg/dL (1.6-2.6) Total Bilirubin 0.3mg/dL (0.0-1.2) Aspartate Amino Transf (AST/SGOT) 82U/L (0-50) Alanine Aminotransferase (ALT/SGPT) 77U/L (0-44) Alkaline Phosphatase 79U/L (25-160) Total Protein 4.5g/dL (6.4-8.4) Albumin 2.8g/dL (3.4-5.0) Microbiology Results Microbiology HEBERT C DIF PCR STOOL Final 10/17/16 CDIF DNA BY PCR NEGATIVE REFERENCE INTERVAL NEGATIVE Microbiology HEBERT CULT URINE Final 10/19/16 Organism 1 COAG NEGATIVE STAPHYLOCOCCUS U COLONY COUNT/QUANTITY >100,000 CFU/ml COAG NEGATIVE STAPHYLOCOCCUS STAPHYLOCOCCUS SPP EPIDERMIDIS Oxacillin Susceptible Penicillin Resistant Staph spp. are Susceptible to Penicillin stable penicillins, Blactam/Blactamase inhibitor combinations, antistaphyloccal cephems, and carbapenems. 1. COAG NEGATIVE STAPHYLOCOCCUS M.I.C Interp --------- ------ * CEFAZOLIN S * LINEZOLID 1 S * NITROFURANTOIN <=16 S * OXACILLIN HEBERT <=0.25 S * RIFAMPIN <=0.5 S * TETRACYCLINE 2 S * TRIMETHOPRIM/SULFAMETHOXAZOLE <=10 S * VANCOMYCIN 1 S Microbiology CAMPYLBACTER SP PCR Final 10/19/16 Not Detected C DIFF TOXIN A AND B BY PCR Final 10/19/16 Not Detected PLESIOMONAS SHIGELLOIDES PCR Final 10/19/16 Not Detected SALMONELLA SPECIES PCR Final 10/19/16 Not Detected YERSINA ENTEROCOLITICA PCR Final 10/19/16 Not Detected VIBRIO SPECIES Final 10/19/16 Not Detected VIBRIO CHOLERAE PCR Final 10/19/16 Not Detected ECOLI PCR ENTEROAGGREGATIVE Final 10/19/16 Not Detected ECOLI PCR ENTEROPATHOGENIC Final 10/19/16 Not Detected ECOLI PCR ENTEROTOXIGENIC Final 10/19/16 Not Detected ECOLI STEC SHIGA TOXIN STX 1 2 Final 10/19/16 Not Detected ECOLI 0157 PCR Final 10/19/16 Not Detected SHIGELLA SP EIEC PCR Final 10/19/16 Not Detected Microbiology (Continued) CRYPTOSPORIDIUM PCR Final 10/19/16 Not Detected CYCLOSPORA CAYETANENISIS PCR Final 10/19/16 Not Detected ENTAMOEBA HISTOLYTICA PCR Final 10/19/16 Not Detected GIARDIA LAMBIA PCR Final 10/19/16 Not Detected ADENOVIRUS PCR F 40 OR 41 Final 10/19/16 Not Detected ASTROVIRUS PCR Final 10/19/16 Not Detected NOROVIRUS GI GI11 Final 10/19/16 Not Detected ROTAVIRUS PCR Final 10/19/16 Not Detected SAPOVIRUS PCR Final 10/19/16 SAPOVIRUS PCR Not Detected Reference Interval Not Detected Discharge Medications Discharge Medications Amiloride (Amiloride) 5 Mg Tablet 5 MG PO DAILY Prescribed by: JUANITA ASTORGA DO Cephalexin (Cephalexin) 500 Mg Tablet 500 MG PO QID Prescribed by: JUANITA ASTORGA DO Cinacalcet (Sensipar) 30 Mg Tablet 30 MG PO DAILY Prescribed by: JUANITA ASTORGA DO Citalopram Hydrobromide (Celexa) 20 Mg Tablet 20 MG PO DAILY Prescribed by: SHELDON SIMMONS MD Donepezil (Aricept) 5 Mg Tablet 5 MG PO HS Prescribed by: SHELDON SIMMONS MD Finasteride (Finasteride) 5 Mg Tablet 5 MG PO DAILY Prescribed by: SHELDON SIMMONS MD Algood Carbonate (Algood Carbonate) 300 Mg Cap 300 MG PO DAILY Prescribed by: SHELDON SIMMONS MD Tamsulosin ER (Tamsulosin ER) 0.4 Mg Cap.er.24h 0.4 MG PO DAILY (Reported) As needed Acetaminophen (Acetaminophen) 325 Mg Capsule 650 MG PO Q4H PRN PRN For Pain ( Reported) Clonazepam (Clonazepam) 0.5 Mg Tablet 0.5 MG PO BID PRN PRN For Anxiety or Agitation Prescribed by: SHELDON SIMMONS MD Additional med instructions 1. Please take cephalexin, 500 mg four times a day by mouth for the next 4 days for urinary tract infection 2. Please take amiloride, 5 mg daily by mouth 3. Stop taking calcitonin Followup Plan Follow-up plan 1. Patient needs a hospital follow up with primary care provider at [facility] and a follow up with Urology for wang catheter removal within 10 days from discharge. Nephrology recommended to change wang catheter weekly or biweekly. 2. Patient's CMP needs to be rechecked by 10/22/2016 at [facility] Discharge Diet: No restrictions Discharge Activity: Limited until seen by PCP Follow-up with PCP in: 1 week (PCP at [facility]) Follow-up in: 2 weeks (Urology ) Time spent Greater than 30 minutes was spent in preparation of discharge with greater than 50% of that time dedicated to patient counseling and coordination of care. . Attending Statement The patient was seen and examined together with Dr. Astorga on 10/20/2016 and I agree with the history, exam and plan as outlined in the note above. . copies to: [facility]; Lina Mcrae MD, Oksana S DO Oct 20, 2016 13:08 Alex Mariscal MD Oct 21, 2016 07:41
[2016-10-20] MEDS ORDERED: CINA30TA PO (13:18)
--- NOTE | 2016-10-20 14:15 | NUR ---
Social Work: Discharge Data: Pt is on day 3 of hospitalization. EMR reviewed. D/C orders are in. [employer] ATTENDANT faxed orders to [employer], transportation set up for 3pm today. [employer] ATTENDANT notified RN and pt's family. Pt's son requested information regarding resources in the area, SE[employer] ATTENDANT emailed him the link to the Senior Resource book for [facility]. No further d/c planning needs at this time. [employer] ATTENDANT will continue to follow if needs arise. Assessment: Pt from SNF. Plan: Pt will d/c back to [facility] today at 3PM via cabulance. No further d/c planning needs at this time. [employer] ATTENDANT will continue to follow if needs arise. MAIN [facility]
--- NOTE | 2016-10-20 15:05 | NUR ---
Transfer to SNF Patient left via wheelchair with outside transportation services in a stable condition. IV DC'd intact, tele removed, no personal belongings with patient. Wang removed at 1045 per nephrology order to see if patient could void -- bladder scanner showed approx 300mls at 1300 and approx 600mls at 1430 -- wang replaced per hospitalist order, returned 650mls pale yellow urine. Body sheet filled out and sent with transportation services. Follow up appointment for urology scheduled prior to discharge to SNF per Dr. Mariscal orders. New prescriptions in transfer paper work.
== END 2016-10-20 15:08 | DRG 682 ==
LOC: EDBD 23:16 → SED 23:16 → PCC 10-17 01:52
PROVIDERS: ADMIT Hospitalist; ATTEND Hospitalist
DX: N17.9 Acute kidney failure, unspecified (principal); G93.41 Metabolic encephalopathy; N39.0 Urinary tract infection, site not specified; T83.518A Infection and inflammatory reaction due to other urinary catheter, initial encounter; N25.89 Other disorders resulting from impaired renal tubular function; G30.9 Alzheimer's disease, unspecified; F02.80 Dementia in other diseases classified elsewhere, unspecified severity, without behavioral disturbance, psychotic disturbance, mood disturbance, and anxiety; E83.52 Hypercalcemia; I10 Essential (primary) hypertension; E86.0 Dehydration; E87.5 Hyperkalemia; E83.41 Hypermagnesemia; R33.9 Retention of urine, unspecified; E21.3 Hyperparathyroidism, unspecified; N40.1 Benign prostatic hyperplasia with lower urinary tract symptoms; L89.320 Pressure ulcer of left buttock, unstageable; F31.9 Bipolar disorder, unspecified; N25.1 Nephrogenic diabetes insipidus

== ENCOUNTER 2016-10-27 18:42 | Inpatient (IN) | payer MEDICARE ==
[~2016-10-27] VITALS: Ht 175.3 cm; Wt 60.7 kg
[~2016-10-27 18:42] MED LIST changes: +ACET325C PO; +AMIL5TAB2 PO; -CALC3.8S NASAL; +CEPH500T PO; +CINA30TA PO; -LITH300T2 PO
--- NOTE | 2016-10-27 18:49 | ED.REPORT ---
HPI-General Illness Date of Service Oct 27, 2016 ED Provider: Dr. Israel Mccord D.O. A 76 year old male with an extensive medical history including hypertension, Alzheimer's disease, type IV renal tubular acidosis, hypercalcemia, CKD, and nephrogenic diabetes insipidus presents to the ED via EMS from [facility] with weakness, fatigue, decreased appetite, and low BP (83/43 today). EMS found the patient with a BP of 95/66 and otherwise normal vital signs. The patient presents awake but nonverbal and not following commands. He was recently admitted from 10/17/16 - 10/20/16 with diagnoses including acute encephalopathy, acute on chronic kidney injury, and catheter-associated UTI. Nursing Notes Stated Complaint: INCREASED WEAKNESS Nursing Notes Reviewed: Yes Allergies: Coded Allergies: hydrocodone (Verified Allergy, Unknown, 09/24/16) Scheduled Amiloride (Amiloride) 5 Mg Tablet 5 MG PO DAILY Calcitonin [place] (Miacalcin) 30 [place]/3.7 Ml Nasalspr 1 SPRAY NA DAILY [place] in 1 Nostril (Alternating Nostrils) Daily Cephalexin (Cephalexin) 500 Mg Tablet 500 MG PO QID Cephalexin (Cephalexin) 500 Mg Tablet 500 MG PO QID Cinacalcet (Sensipar) 30 Mg Tablet 30 MG PO DAILY Citalopram Hydrobromide (Celexa) 20 Mg Tablet 20 MG PO DAILY Donepezil (Aricept) 5 Mg Tablet 5 MG PO HS Finasteride (Finasteride) 5 Mg Tablet 5 MG PO DAILY Lactobacillus Acidophilus (Acidophilus Lactobacillus) 1 Each Capsule 2 EACH PO BID Rosenberg Carbonate (Rosenberg Carbonate) 300 Mg Cap 300 MG PO DAILY Tamsulosin (Flomax) 0.4 Mg Capsule 0.4 MG PO HS Valacyclovir (Valacyclovir) 1,000 Mg Tablet 1,000 MG PO TID Scheduled PRN Acetaminophen (Acetaminophen) 325 Mg Capsule 650 MG PO Q4H PRN PRN For Pain Clonazepam (Clonazepam) 0.5 Mg Tablet 0.5 MG PO BID PRN PRN For Anxiety or Agitation Tramadol (Tramadol) 50 Mg Tablet 50 MG PO QID PRN PRN For Pain General Time Seen by MD: 18:49 Chief Complaint Weakness Hx Obtained From: EMS Unable to Obtain Hx: Patient condition, Mental status Arrived By: Ambulance Sudden in Onset?: No Symptom Duration: Since onset Pertinent Negative: Relieved by nothing Context Related History: Reports Psychiatric history Recent Healthcare: Recent doctor visit, Recent hospitalization Similar Sx Previous: Yes Past Medical History Past Medical History Notes: Nathaniel (son): , Past Medical History 1. Bipolar Disorder 2. Alzheimer's Disease 3. Essential Hypertension 4. Type IV Renal Tubular Acidosis 5. Hypercalcemia 6. Chronic Kidney Disease 7. Nephrogenic diabetes insipidus 8. Benign prostatic hyperplasia Reports: Hypertension Past Surgical History Prostate procedure C-spine surgery Smoking History Unknown if Ever Smoker Social History Other Social History: Good social support, Local resident Ambulatory Status Independent Review of Systems Unable to Obtain ROS Patient condition, Mental status Physical Exam Vital Signs Vital Signs Date Time Temp Pulse Resp B/P Pulse Ox O2 Delivery O2 Flow Rate FiO2 10/27/16 22:34 36.5 77 16 134/55 100 Room Air 10/27/16 18:52 36.4 93 16 118/42 97 Room Air Initial VS: Reviewed Skin: Warm, Dry General/Constitutional: Awake, No acute distress Patient unable to talk or follow commands Head / Eyes: Atraumatic, Normocephalic ENT: Airway patent Mouth: Positive: Mucous membranes dry Respiratory / Chest: Atraumatic, No respiratory distress Cardiovascular: Heart rate NL, Regular rhythm Lower Extremity / Pelvis / MS: Atraumatic, No swelling Interpretation & Diagnostics Lab Results Interpretation Result Diagram: 10/28/16 0645 10/28/16 0645 Test 10/27/16 19:32 10/27/16 23:00 Lactic Acid Level 1.1mmol/L (0.4-2.0) Total Bilirubin 0.5mg/dL (0.0-1.2) Aspartate Amino Transf (AST/SGOT) 28U/L (0-50) Alanine Aminotransferase (ALT/SGPT) 58U/L (0-44) Alkaline Phosphatase 122U/L (25-160) Troponin T < 0.010ug/L (0.0-0.011) Total Protein 6.6g/dL (6.4-8.4) Albumin 4.1g/dL (3.4-5.0) Rosenberg Level 1.2mEq/L (0.5-1.5) Hold Lehman Top Tube Received (Received) ECG Interpretation ECG Interpretation: Sinus rhythm rate 87 Time: 19:24 Interpreted by: ED physician X-Ray Chest Interpretation Chest Xray Interpretation: IMPRESSION: No acute cardiopulmonary disease. Dictated by: Guillaume Leary M.D. on 10/27/2016 at 19:21 View: Portable, 1 view Interpretation / Wet Read by: Interpret - Radiologist Re-Eval/Medical Decision Med Decision/Clinical Course No improvement with IV fluids. Mr. Mazariegos was unable to verbalize exactly how he got so sick this time. His potassium was initially gone up to 6. His EKG still does not show changes. We will continue treatment as fluids. Consider insulin and Kayexalate as well. Hospital admission to a telemetry bed. Source of Hx: Old records Time of Eval: 23:50 Patient Status: Condition improved Re-Evaluation/Progress Note: Patient rechecked. He is still nonverbal. Patient will be admitted. Consultation #1: Referral / Consult Name: Ron Jovel MD Consulted With: Hospitalist Call Returned at: 21:24 Pipe Organ Installer: Agrees with eval, Agrees with plan Note: Agrees with plan for discharge. Consultation #2: Referral / Consult Name: Ron Jovel MD Consulted With: Hospitalist Call Returned at: 23:50 Pipe Organ Installer: Agrees with eval, Agrees with plan, Accepts admit Note: Discussed patient's case and lab results. Discharge & Departure Primary Impression: Dehydration Additional Impressions: Renal insufficiency Hyperkalemia Disposition: ADMITTED TO HOSPITAL Discharge Condition All VS Reviewed: Yes Condition: Improved Referrals: NOPCP (PCP) [facility] Joanna Attestation Portions of this note were transcribed by Wen Savage. I, Dr. Mccord, personally performed the history, physical exam, and medical decision-making; I reviewed and confirmed the accuracy of the information in the transcribed note. Signed by: Joanna Minor, 10/28/2016, 01:15 copies to: [facility] Israel Mccord DO Oct 27, 2016 18:49 WEN SAVAGE Oct 27, 2016 19:07 Potassium Level 6.0mEq/L (3.5-5.2) Chloride Level 106mEq/L (97-108) Carbon Dioxide Level 15mmol/L (18-29) Blood Urea Nitrogen 41mg/dL (8-27) Creatinine 1.71mg/dL (0.76-1.27) Estimat Glomerular Filtration Rate 41mL/min (>59) Glucose Level 110mg/dL (60-99) Calcium Level 9.3mg/dL (8.5-10.1) ECG Interpretation ECG Interpretation: Sinus rhythm rate 87 Time: 19:24 Interpreted by: ED physician X-Ray Chest Interpretation Chest Xray Interpretation: IMPRESSION: No acute cardiopulmonary disease. Dictated by: Guillaume Leary M.D. on 10/27/2016 at 19:21 View: Portable, 1 view Interpretation / Wet Read by: Interpret - Radiologist Re-Eval/Medical Decision Source of Hx: Old records Time of Eval: 23:50 Patient Status: Condition improved Re-Evaluation/Progress Note: Patient rechecked. He is still nonverbal. Patient will be admitted. Consultation #1: Referral / Consult Name: Ron Jovel MD Consulted With: Hospitalist Call Returned at: 21:24 Pipe Organ Installer: Agrees with eval, Agrees with plan Note: Agrees with plan for discharge. Consultation #2: Referral / Consult Name: Ron Jovel MD Consulted With: Hospitalist Call Returned at: 23:50 Pipe Organ Installer: Agrees with eval, Agrees with plan, Accepts admit Note: Discussed patient's case and lab results. Discharge & Departure Primary Impression: Dehydration Additional Impressions: Renal insufficiency Hyperkalemia Disposition: ADMITTED TO HOSPITAL Discharge Condition All VS Reviewed: Yes Condition: Improved Referrals: NOPCP (PCP) [facility] Scribe Attestation Portions of this note were transcribed by Wen Savage. I, Dr. Mccord, personally performed the history, physical exam, and medical decision-making; I reviewed and confirmed the accuracy of the information in the transcribed note. Signed by: Joanna Minor, 10/28/2016, 01:15 copies to: [facility] Israel Mccord DO Oct 27, 2016 18:49 WEN SAVAGE Oct 27, 2016 19:07
[2016-10-27 18:52] VITALS: BP 118/42; PULSE 93; RESP 16; O2SAT 97
--- NOTE | 2016-10-27 19:31 | DRSVH ---
PROCEDURE: X-RAY CHEST ONE VIEW, PORTABLE ([id number]) INDICATIONS: 76-year-old male with altered mental status. TECHNIQUE: One view of the chest was acquired. COMPARISON: [facility], CR, XR CHEST 1VW (PORTABLE), 10/17/2016, 0:08. [facility], CR, XR CHEST 1VW (PORTABLE), 10/03/2016, 15:25. [facility], CR, XR CHEST 1VW (PORT ABLE), 09/24/2016, 16:38. FINDINGS: Surgical changes and devices: Cholecystectomy clips are present. Lungs and pleura: No pleural effusions or pneumothorax. Lungs are clear. Mediastinum: Mediastinal contours appear normal. Heart size is normal. There is aortic atheroscler osis. Bones and chest wall: No suspicious bony lesions. Overlying soft tissues appear unremarkable. IMPRESSION: No acute cardiopulmonary disease. Dictated by: Guillaume Leary M.D. on 10/27/2016 at 19:21 Approved by: Guillaume Leary M.D. on 10/27/2016 at 19:24
[2016-10-27 19:48] LABS: BASOPHILS % (AUTO) 0.4 % (0-3); EOSINOPHILS % (AUTO) 2.7 % (0-5); MONOCYTES % (AUTO) 5.4 % (4-12); Mean Corpuscular Hemoglobin 33.3 pg (27.0-35.0); Mean Corpuscular Volume 103.4 fL (81-100); NEUTROPHILS % (AUTO) 83.5 % (40-74); Platelet Count 324 bil/L (150-400)
[2016-10-27 20:10] LABS: TROPONIN T < 0.010 ug/L (0.0-0.011)
[2016-10-27] MEDS ORDERED: 0.9% Sodium Chloride 1,000 ML IV ONE ×2 (20:30→21:25)
[2016-10-27 22:34] VITALS: BP 134/55; PULSE 77; RESP 16; O2SAT 100
[2016-10-28] VITALS (9 sets, daily range): BP systolic 114–138; BP diastolic 55–87; PULSE 70–80; RESP 14–20; O2SAT 95–99
[2016-10-28] MEDS ORDERED: Alum-Mag Hydrox-Simeth 30 mL Suspension PO PRN
[2016-10-28] MEDS ORDERED: Polyethylene Glycol (PEG) 17 Gm Powder PO PRN
[2016-10-28] MEDS ORDERED: Ondansetron 2 mg/mL 2 mL Inj IVPUSH PRN
[2016-10-28] MEDS: Sodium Chloride LOK Flush 10 mL Syringe IVFLUSH SCH ×4 (00:30→20:25)
[2016-10-28 01:22] LABS: COLOR,URINE YELLOW (YELLOW)
[2016-10-28 01:23] LABS: APPEARANCE,URINE CLEAR (CLEAR,HAZY); OCCULT BLOOD,URINE NEGATIVE (NEGATIVE); PH,URINE 6.5 (5.0-8.0); UROBILINOGEN,URINE NORMAL (NORMAL)
[2016-10-28] MEDS: 0.9% Sodium Chloride 1,000 ML IV SCH ×3 (01:32→20:24)
[2016-10-28] MEDS ORDERED: TRAM50TA2 PO (02:03)
[2016-10-28] MEDS ORDERED: TAMS0.4C98 PO (02:03)
[2016-10-28] MEDS ORDERED: VALA100026 PO (02:03)
[2016-10-28] MEDS ORDERED: CEPH500T PO (02:03)
[2016-10-28] MEDS ORDERED: LACT1CAP44 PO (02:03)
[2016-10-28] MEDS ORDERED: CLC200SP2 (02:03)
--- NOTE | 2016-10-28 02:30 | PCM.HPMED ---
Subjective Date of Service Oct 28, 2016 Primary Provider: Admitting Physician: Primary Care Physician: Kar Attending Physician: Admit Status: From the Emergency Department, Full Admit, Remote Telemetry Chief Complaint: Weakness at the senior living History of Present Illness: Alex Mazariegos is a 76 year old male with Hypertension, Alzheimer's disease, type IV renal tubular acidosis, hypercalcemia, Chronic kidney disease, and nephrogenic diabetes insipidus presents to [facility] emergency department via EMS from [facility] for evaluation of weakness. Patient was noted to be alert and answering questions appropriately but appears weak overall. Associated symptoms include decreased appetite, and low BP (83/43 today) notes at the facility today. Patient denies any fever or chills. Complaining of some mild epigastric pain, non radiating and now resolved. Patient suspected some of it was related to the heparin shots he has been getting via his abdomen. EMS found the patient with BP of 95/66 and otherwise normal vital signs. He was reported to be somewhat confused initially. Recent admission 10/17-10/20 reviewed and Summary showed he was admitted for acute Encephalopathy likely a metabolic encephalopathy secondary to acute kidney injury and catheter related urinary tract infection. Renal function improved (Dr Linares was consulted) and was treated with Ceftriaxone then transition to Cephalexin PO upon discharge (patient has completed this course) Review of records from [facility] showed the patient was started on Valacyclovir a few days ago, apparently of Zoster. Case discussed with Dr Suri renner, despite IV fluids for several hours in the department no significant improvement in renal function and hyperkalemia worsened as well. Review of Systems: Pertinent positives as noted in HPI. All other systems were reviewed and are negative Allergies Coded Allergies: hydrocodone (Verified Allergy, Unknown, 09/24/16) Home Medications From recent Discharge Summary, NOT YET CONFIRMED Amiloride (Amiloride) 5 Mg Tablet 5 MG PO DAILY Prescribed by: JUANITA ASTORGA DO Cinacalcet (Sensipar) 30 Mg Tablet 30 MG PO DAILY Prescribed by: JUANITA ASTORGA DO Citalopram Hydrobromide (Celexa) 20 Mg Tablet 20 MG PO DAILY Prescribed by: SHELDON SIMMONS MD Donepezil (Aricept) 5 Mg Tablet 5 MG PO HS Prescribed by: SHELDON SIMMONS MD Finasteride (Finasteride) 5 Mg Tablet 5 MG PO DAILY Prescribed by: SHELDON SIMMONS MD Storden Carbonate (Storden Carbonate) 300 Mg Cap 300 MG PO DAILY Prescribed by: SHELDON SIMMONS MD Tamsulosin ER (Tamsulosin ER) 0.4 Mg Cap.er.24h 0.4 MG PO DAILY (Reported) As needed Acetaminophen (Acetaminophen) 325 Mg Capsule 650 MG PO Q4H PRN PRN For Pain ( Reported) Clonazepam (Clonazepam) 0.5 Mg Tablet 0.5 MG PO BID PRN PRN For Anxiety or Agitation Prescribed by: SHELDON SIMMONS MD [facility] 1. Bipolar Disorder 2. Alzheimer's Disease 3. Essential Hypertension 4. Type IV Renal Tubular Acidosis 5. Hypercalcemia, 6. Chronic Kidney Disease . Surgical History Prostate procedure C-spine surgery Family History reviewed, nothing of significance based on his current medical issues Social History Hx Alcohol Use: Yes (occasional) Hx Substance Use: No Hx Tobacco Use: No Smoking Status: Never Smoker Living Arrangement: Alf Facility ([facility]) Exam Vital Signs Vital Sign - Last Date Time Temp Pulse Resp B/P Pulse Ox O2 Delivery O2 Flow Rate FiO2 10/27/16 22:34 36.5 77 16 134/55 100 Room Air Intake and Output 10/27/16 10/27/16 10/28/16 Cumulative From/Thru 15:00 23:00 07:00 10/27/16 18:52 - 10/27/16 21:30 Intake Total 2000 ml 2000 ml Balance 2000 ml 2000 ml Intake IV Total 2000 ml 2000 ml Exam General: Alert, Oriented X3, Cooperative, No acute Distress Eyes: PERRLA, Scleral Anicteric Mouth: Mouth Normal, Mucous Membranes dry Neck: Supple, no Thyromegaly, trachea central. Chest & Lungs: Clear to auscultation & percussion, No adventitious breath sounds, no crackles, no wheeze Cardiovascular: Normal S1, Normal S2, No Murmurs/Rubs/Gallops, Regular Rate/ Rhythm, Murmur, Other (No JVD, no peripheral edema) Pulses: Radial (present and equal), Dorsalis Pedi (present and equal) Abdomen: Soft, Non-tender, Non-distended, Normoactive bowel tones. Musculoskeletal: Unremarkable. Normal range of motion, no swollen or erythematous joints Extremities: No edema, no cyanosis, no clubbing. Skin: Erythematous changes and skin breakdown on left hip and gluteal region ( healing well, no evidence of Zoster noted) Neurological: Grossly neurologically intact, has generalized weakness, Normal Speech, Sensation Intact Lymphatic: Lymph nodes Cervical and Axillary not palpable. Lab and Diagnostics Labs Laboratory Tests Test 10/27/16 19:32 10/27/16 23:00 10/27/16 23:04 White Blood Count 13.6th/mm3 (3.8-10.1) Red Blood Count 4.65mil/mm3 (4.40-5.80) Hemoglobin 15.5g/dL (13.8-17.2) Hematocrit 48.1% (41.0-50.0) Mean Corpuscular Volume 103.4fL (81-100) Mean Corpuscular Hemoglobin 33.3pg (27.0-35.0) Mean Corpuscular Hemoglobin Concent 32.2% (32.0-37.0) Red Cell Distribution Width 12.3% (12.3-15.4) Platelet Count 324bil/L (150-400) Neutrophils (%) (Auto) 83.5% (40-74) Lymphocytes (%) (Auto) 7.5% (14-46) Monocytes (%) (Auto) 5.4% (4-12) Eosinophils (%) (Auto) 2.7% (0-5) Basophils (%) (Auto) 0.4% (0-3) Sodium Level 132mEq/L (134-144) 136mEq/L (134-144) Potassium Level 5.6mEq/L (3.5-5.2) 6.0mEq/L (3.5-5.2) Chloride Level 98mEq/L (97-108) 106mEq/L (97-108) Carbon Dioxide Level 17mmol/L (18-29) 15mmol/L (18-29) Blood Urea Nitrogen 40mg/dL (8-27) 41mg/dL (8-27) Creatinine 1.77mg/dL (0.76-1.27) 1.71mg/dL (0.76-1.27) Estimat Glomerular Filtration Rate 40mL/min (>59) 41mL/min (>59) Glucose Level 129mg/dL (60-99) 110mg/dL (60-99) Lactic Acid Level 1.1mmol/L (0.4-2.0) Calcium Level 11.1mg/dL (8.5-10.1) 9.3mg/dL (8.5-10.1) Total Bilirubin 0.5mg/dL (0.0-1.2) Aspartate Amino Transf (AST/SGOT) 28U/L (0-50) Alanine Aminotransferase (ALT/SGPT) 58U/L (0-44) Alkaline Phosphatase 122U/L (25-160) Troponin T < 0.010ug/L (0.0-0.011) Total Protein 6.6g/dL (6.4-8.4) Albumin 4.1g/dL (3.4-5.0) Hold Lehman Top Tube Received (Received) Received (Received) Storden Level 1.2mEq/L (0.5-1.5) Microbiology 10/27/16 Blood Culture, Received Pending Result Diagram: 10/27/16 1932 10/27/16 2304 X-Rays, CTs and MRIs X-RAY CHEST ONE VIEW, PORTABLE 10/27 IMPRESSION: No acute cardiopulmonary disease. Dictated by: Guillaume Leary M.D. on 10/27/2016 at 19:21 Approved by: Guillaume Leary M.D. on 10/27/2016 at 19:24 Assessment & Plan Alex Mazariegos is a 76 year old male with Hypertension, Alzheimer's disease, type IV renal tubular acidosis, hypercalcemia, Chronic kidney disease, and nephrogenic diabetes insipidus presents to [facility] emergency department via EMS from [facility] for evaluation of weakness. 1. Acute Hypotension with weakness. Present on admission Likely due to poor PO intake and infection. If not improving with IV fluids, may be early septic shock. Urinalysis showed no infection. Consider side effects of Valacyclovir as this was a new medications added - continue IV fluids - holding antihypertensive medications for now 2 Acute Kidney Injury on Chronic Kidney disease with Metabolic Anion Gap Metabolic Acidosis,. Present on admission Likely due to dehydrated status secondary to poor PO intake and maybe infection. Monitor Valacyclovir as a possible contributing factor - continue IV fluids resuscitations - avoid nephrotoxic insults - consult Nephrology tomorrow if no improvement with fluids 3 Acute Hyperkalemia and Hypercalcemia with Type IV Renal tubular acidosis The hypercalcemia has normalized with fluids and likely reflected dehydration as the cause - monitor on telemetry - Kayexalate given, consider regular insulin if worsening 4. Left buttock early pressure ulcer, present on admission This was diagnosed as Zoster at the facility which I suspect is misdiagnosis as these were noted during last admission and does not show clinical signs of Zoster which include dermatomal distribution and severe pain - continue rotating patient in bed - STOPPING Valacyclovir at this point 5 Bipolar Disorder Presumed stable - continue psych medications including Storden 6 Alzheimer's Disease - continue home Aricept - high risk for delirium, avoid psychoactive medications such as benzodiazepines - Acetaminophen as needed for mild pain/fever/headache - Bowel regimen as needed - Antiemetic as needed Patient admitted under inpatient status with expected length of stay > 2 midnights for severity of present symptoms, complexities of treatment plan and risk for adverse event . Resuscitation Status: CPR: Attempt Resuscitation Ron Jovel MD Oct 28, 2016 00:04
--- NOTE | 2016-10-28 06:12 | NUR ---
admit: admit assessment questions complete. pt not able to answer questions appropriately. recall values and H&P used to complete admit. Med rec done. open area left lower back, and lower back. pt Alert to self. IVF infusing per orders. will continue to monitor.
[2016-10-28 06:56] LABS: BASOPHILS % (AUTO) 0.5 % (0-3); EOSINOPHILS % (AUTO) 5.5 % (0-5); MONOCYTES % (AUTO) 6.5 % (4-12); Mean Corpuscular Volume 100.2 fL (81-100); NEUTROPHILS % (AUTO) 75.3 % (40-74)
[2016-10-28] MEDS ORDERED: Insulin Human REGular 300 Unit/3 mL Inj IV ONE (10:10)
--- NOTE | 2016-10-28 15:26 | NUR ---
spiritual care: pt request brief visit. assisted pt as he reached for water, very weak, he could not hold cup. He fell asleep as he described "I don't know what happened, i passed out" did not rouse to voice.
--- NOTE | 2016-10-28 16:27 | NUR ---
Social Work: Initial Assessment: Data & Assessment: See Initial Assessment. EMR reviewed. Pt is a 76 y/o male who admitted on 10/28/16 for dehydration, renal insufficiency, and hyperkalemia per H&P. SEVERO unable to complete initial assessment with patient because patient is non decisional. SW attempted to call patient's NOKNathaniel [phone], but there was no answer and SW left a message requesting a call back. SW completed initial assessment by reviewing patient medical record and the patient is well known to this creative services writer. Pt's insurance is [place]. Pt has no current PCP care, but there is PCP history with MD Cruz. Pt is a re-admit and patient's previous DC plan was [facility] for continued rehab. Patient's son is working on patient's limb driver care plan for after [facility]. Pt used a walker after last admission. Patient is likely to discharge to [facility] for rehab. SW will contact [facility] on 10/29. SW will continue to follow. Plan: Patiently likely to discharge back to [facility]. SW will continue to follow. Efrain Dunlap LMSW, PAUL Addendum: 10/28/16 at 1639 by EFRAIN DUNLAP SS Amended: Links added. Addendum: 10/28/16 at 1639 by EFRAIN DUNLAP SS Patient's re-admit score is 5 high risk.
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
[2016-10-29] VITALS (7 sets, daily range): BP systolic 103–146; BP diastolic 62–82; PULSE 61–80; RESP 16–18; O2SAT 96–98
--- NOTE | 2016-10-29 04:47 | NUR ---
Confusion Patient alert to self only. Patient states that he is not having any pain. Tele sinus 74. Room air at 94%. Sleeping most of the night. Q2 turns, but patient turning independently throughout shift. Feldman patent and draining. Patient has Mepalex dressing on lower back, clean dry and intact. vitals stable.
[2016-10-29] MEDS: 0.9% Sodium Chloride 1,000 ML IV SCH ×2 (06:10→16:02)
[2016-10-29] MEDS: Sodium Chloride LOK Flush 10 mL Syringe IVFLUSH SCH ×3 (08:17→20:39)
[2016-10-29 09:10] LABS: BASOPHILS % (AUTO) 0.7 % (0-3); EOSINOPHILS % (AUTO) 4.1 % (0-5); Mean Corpuscular Hemoglobin 33.3 pg (27.0-35.0); Mean Corpuscular Volume 106.2 fL (81-100); NEUTROPHILS % (AUTO) 75.9 % (40-74); Platelet Count 248 bil/L (150-400)
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
[2016-10-29 10:03] LABS: Magnesium 2.2 mg/dL (1.6-2.6)
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
--- NOTE | 2016-10-29 14:36 | PCM.PNMED ---
Subjective Date of Service Oct 29, 2016 Subjective Patient confused today. Oriented to place but says he wants " to talk to the female Dr Torres whom he saw yesterday". Hyperkalemia and TASHA resolved. Exam Vital Signs Vital Sign - Last Date Time Temp Pulse Resp B/P Pulse Ox O2 Delivery O2 Flow Rate FiO2 10/29/16 09:13 36.9 77 18 143/71 98 Room Air Intake and Output 10/28/16 10/28/16 10/29/16 Cumulative From/Thru 15:00 23:00 07:00 10/27/16 18:52 - 10/29/16 06:31 Intake Total 1981 ml 400 ml 4381 ml Output Total 1100 ml 1300 ml 3400 ml Balance 881 ml -900 ml 981 ml Intake Oral 370 ml 400 ml 770 ml IV Total 1611 ml 3611 ml Output Urine Total 1100 ml 1300 ml 3400 ml # Bowel Movements 0 1 Exam General: Alert, confused. Oriented X1, Cooperative, No acute Distress Eyes: PERRLA, Scleral Anicteric Mouth: Mouth Normal, Mucous Membranes dry Neck: Supple, no Thyromegaly, trachea central. Chest & Lungs: Clear to auscultation & percussion, No adventitious breath sounds, no crackles, no wheeze Cardiovascular: Normal S1, Normal S2, No Murmurs/Rubs/Gallops, Regular Rate/ Rhythm, Murmur, Other (No JVD, no peripheral edema) Pulses: Radial (present and equal), Dorsalis Pedi (present and equal) Abdomen: Soft, Non-tender, Non-distended, Normoactive bowel tones. Musculoskeletal: Unremarkable. Normal range of motion, no swollen or erythematous joints Extremities: No edema, no cyanosis, no clubbing. Skin: Erythematous changes and skin breakdown on left hip and gluteal region ( healing well, no evidence of Zoster noted) Neurological: Grossly motor/neurologically intact, has generalized weakness, Normal Speech, Sensation Intact Lymphatic: Lymph nodes Cervical and Axillary not palpable. IVs and Medications Medications Reviewed: Medications were reviewed in detail Lab and Diagnostics Result Diagram: 10/29/1690510/29/16905 X-Rays, CTs and MRIs X-RAY CHEST ONE VIEW, PORTABLE 10/27 IMPRESSION: No acute cardiopulmonary disease. Dictated by: Guillaume Leary M.D. on 10/27/2016 at 19:21 Approved by: Guillaume Leary M.D. on 10/27/2016 at 19:24 Assessment & Plan Alex Mazariegos is a 76 year old male with Hypertension, Alzheimer's disease, type IV renal tubular acidosis, hypercalcemia, Chronic kidney disease, and nephrogenic diabetes insipidus presents to [facility] emergency department via EMS from [facility] for evaluation of weakness. # Acute Hyperkalemia and Hypercalcemia with Type IV Renal tubular acidosis -due to TASHA on CKD due to dehydration -Hyperkalemia resolved - monitor on telemetry - Kayexalate given, regular insulin also given # . Acute Hypotension with weakness. Present on admission. Resolved Likely due to poor PO intake. No evidence of infection. Urinalysis showed no infection. Consider side effects of Valacyclovir as this was a new medications added - continue IV fluids -Resume antihypertensive medications #Hospital delirium, acute,not poa -No Evidence of infection. Blood culture negative -Continue to reorient # Acute Kidney Injury on Chronic Kidney disease with Metabolic Anion Gap Metabolic Acidosis,. Present on admission. Resolved Likely due to dehydrated status secondary to poor PO intake . Monitor Valacyclovir as a possible contributing factor - continue IV fluids resuscitations - avoid nephrotoxic insults #. Left buttock early pressure ulcer, present on admission This was diagnosed as Zoster at the facility which I suspect is misdiagnosis as these were noted during last admission and does not show clinical signs of Zoster which include dermatomal distribution and severe pain - continue rotating patient in bed - STOPPING Valacyclovir at this point # Bipolar Disorder Presumed stable - continue psych medications including [place] -lithium level 1.2 # Alzheimer's Disease - continue home Aricept - high risk for delirium, avoid psychoactive medications such as benzodiazepines - Acetaminophen as needed for mild pain/fever/headache - Bowel regimen as needed - Antiemetic as needed Patient admitted under inpatient status with expected length of stay > 2 midnights for severity of present symptoms, complexities of treatment plan and risk for adverse event . Possible discharge tomorrow back to [facility] if mentation improved VTE Mechanical Devices: Venous Foot Pump Resuscitation Status: CPR: Attempt Resuscitation Tanner Torres MD Oct 29, 2016 14:36
--- NOTE | 2016-10-29 14:44 | NUR ---
agitation/confusion pt has put his call light on repeatedly, every time this RN asks what I can do to help he refuses any help. The most recent call light patient was asking for the heavy set, black man that is a cook. I asked what he would like to talk to the cook for and he responded with its personal and covered his head with the blanket.
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
[2016-10-30 00:28] VITALS: BP 99/59; PULSE 70; RESP 16; O2SAT 96
[2016-10-30] MEDS: 0.9% Sodium Chloride 1,000 ML IV SCH (01:56)
[2016-10-30 05:07] VITALS: BP 124/71; PULSE 65; RESP 18; O2SAT 98
[2016-10-30 05:51] VITALS: PULSE 61
[2016-10-30 08:10] VITALS: PULSE 70
[2016-10-30] MEDS: Sodium Chloride LOK Flush 10 mL Syringe IVFLUSH SCH (08:30)
[2016-10-30 09:35] VITALS: BP 128/69; PULSE 72; RESP 16; O2SAT 98
[2016-10-30 10:11] LABS: BASOPHILS % (AUTO) 0.8 % (0-3); EOSINOPHILS % (AUTO) 6.5 % (0-5); MONOCYTES % (AUTO) 6.8 % (4-12); Mean Corpuscular Hemoglobin 33.6 pg (27.0-35.0); Mean Corpuscular Volume 107.3 fL (81-100); NEUTROPHILS % (AUTO) 71.2 % (40-74); Platelet Count 214 bil/L (150-400)
--- NOTE | 2016-10-30 10:26 | PCM.DIMED ---
Discharge Instructions Date of Service Oct 30, 2016 Dates of Hospitalization Oct 28, 2016 at 00:37 Discharge Diagnosis Discharge Diagnosis # Acute Hyperkalemia and Hypercalcemia -due to TASHA on CKD due to dehydration # . Acute Hypotension with weakness. Present on admission. Resolved Likely due to poor PO intake. #Hospital delirium, acute,not poa,resolved # Acute Kidney Injury on Chronic Kidney disease with Metabolic Anion Gap Metabolic Acidosis,. Present on admission. Resolved Likely due to dehydrated status secondary to poor PO intake . #. Left buttock early pressure ulcer, present on admission This was diagnosed as Zoster at the facility which I suspect is misdiagnosis as these were noted during last admission and does not show clinical signs of Zoster which include dermatomal distribution and severe pain # Bipolar Disorder # Alzheimer's Disease Diet Low fat, Low Sodium Activity Limited until seen by PCP Call your provider Fever or Chills, Shortness of breath, Bleeding, Chest pain, Vomitting, Excessive diarrhea, Weakness (unilateral) Patient Instructions You were hospitalized due to acute kidney injury with hyperkalemia/high potassium due to dehydration due to poor oral intake. Hyperkalemia and acute kidney injury resolved with IV fluids. Please keep yourself hydrated.You were started on valacyclovir for suspected zoster skin rash at the back. Lesion is early pressure ulcer thus discontinued valacyclovir. Follow-up plan Please [facility] in one week Follow-up with PCP in: 1 week Tanner Torres MD Oct 30, 2016 10:26
--- NOTE | 2016-10-30 10:34 | PCM.DC.MED ---
Discharge Summary Date of Service Oct 30, 2016 Dates of Hospitalization Date of Hospital Admission Oct 28, 2016 at 00:37 Date of Discharge: Oct 30, 2016 Providers: Admitting Physician: Ron Jovel MD Primary Care Physician: [place] Attending Physician: Ron Jovel MD Diagnosis at Time of Discharge Diagnosis at Time of Discharge # Acute Hyperkalemia and Hypercalcemia -due to TASHA on CKD due to dehydration # . Acute Hypotension with weakness. Present on admission. Resolved Likely due to poor PO intake. #Hospital delirium, acute,not poa,resolved # Acute Kidney Injury on Chronic Kidney disease with Metabolic Anion Gap Metabolic Acidosis,. Present on admission. Resolved Likely due to dehydrated status secondary to poor PO intake . # History of nephrogenic diabetes insipidus, chronic #. Left buttock early pressure ulcer, present on admission This was diagnosed as Zoster at the facility which I suspect is misdiagnosis as these were noted during last admission and does not show clinical signs of Zoster which include dermatomal distribution and severe pain # Bipolar Disorder # Alzheimer's Disease Procedures XRay, CTs & MRIs X-RAY CHEST ONE VIEW, PORTABLE 10/27 IMPRESSION: No acute cardiopulmonary disease. Dictated by: Guillaume Leary M.D. on 10/27/2016 at 19:21 Approved by: Guillaume Leary M.D. on 10/27/2016 at 19:24 Brief History per HPI Alex Mazariegos is a 76 year old male with Hypertension, Alzheimer's disease, type IV renal tubular acidosis, hypercalcemia, Chronic kidney disease, and nephrogenic diabetes insipidus presents to [facility] emergency department via EMS from [facility] for evaluation of weakness. Patient was noted to be alert and answering questions appropriately but appears weak overall. Associated symptoms include decreased appetite, and low BP (83/43 today) notes at the facility today. Patient denies any fever or chills. Complaining of some mild epigastric pain, non radiating and now resolved. Patient suspected some of it was related to the heparin shots he has been getting via his abdomen. EMS found the patient with BP of 95/66 and otherwise normal vital signs. He was reported to be somewhat confused initially. Recent admission 10/17-10/20 reviewed and Summary showed he was admitted for acute Encephalopathy likely a metabolic encephalopathy secondary to acute kidney injury and catheter related urinary tract infection. Renal function improved (Dr Linares was consulted) and was treated with Ceftriaxone then transition to Cephalexin PO upon discharge (patient has completed this course) Review of records from [facility] showed the patient was started on Valacyclovir a few days ago, apparently of Zoster. Case discussed with Dr Suri renner, despite IV fluids for several hours in the department no significant improvement in renal function and hyperkalemia worsened as well. Hospital Course Alex Mazariegos is a 76 year old male with Hypertension, Alzheimer's disease, type IV renal tubular acidosis, hypercalcemia, Chronic kidney disease, and nephrogenic diabetes insipidus presents to [facility] emergency department via EMS from [facility] for evaluation of weakness. # Acute Hyperkalemia and Hypercalcemia , improved -due to TASHA on CKD due to dehydration -Hyperkalemia resolved - Kayexalate given, regular insulin also given # . Acute Hypotension with weakness. Present on admission. Resolved Likely due to poor PO intake. No evidence of infection. Urinalysis showed no infection. Consider side effects of Valacyclovir as this was a new medications added - Treated with IV fluids #Hospital delirium, acute,not poa, resolved -No Evidence of infection. Blood culture negative -Continue to reorient # Acute Kidney Injury on Chronic Kidney disease with Metabolic Anion Gap Metabolic Acidosis,. Present on admission. Resolved Likely due to dehydrated status secondary to poor PO intake . Monitor Valacyclovir as a possible contributing factor - Treated with IV fluids resuscitations - avoid nephrotoxic insults -Advised patient to keep hydrated. No fluid restriction at this point. Advised RN to relay this message to retirement facility when she gives signout. # History of nephrogenic diabetes insipidus, chronic -Continue home amiloride #. Left buttock early pressure ulcer, present on admission This was diagnosed as Zoster at the facility which I suspect is misdiagnosis as these were noted during last admission and does not show clinical signs of Zoster which include dermatomal distribution and severe pain - continue rotating patient in bed - STOPPED Valacyclovir # Bipolar Disorder Presumed stable - continue psych medications including [place] -lithium level 1.2 # Alzheimer's Disease - continue home Aricept - high risk for delirium, avoid psychoactive medications such as benzodiazepines - Acetaminophen as needed for mild pain/fever/headache - Bowel regimen as needed - Antiemetic as needed discharge back to [facility] Condition ON discharge improved and stable Exam Vital Signs (Last) Date Time Temp Pulse Resp B/P Pulse Ox O2 Delivery O2 Flow Rate FiO2 10/30/16 09:35 36.4 72 16 128/69 98 Room Air Exam General: Alert, confused. Oriented X2, Cooperative, No acute Distress Eyes: PERRLA, Scleral Anicteric Mouth: Mouth Normal, Mucous Membranes dry Neck: Supple, no Thyromegaly, trachea central. Chest & Lungs: Clear to auscultation & percussion, No adventitious breath sounds, no crackles, no wheeze Cardiovascular: Normal S1, Normal S2, No Murmurs/Rubs/Gallops, Regular Rate/ Rhythm, Murmur, Other (No JVD, no peripheral edema) Pulses: Radial (present and equal), Dorsalis Pedi (present and equal) Abdomen: Soft, Non-tender, Non-distended, Normoactive bowel tones. Musculoskeletal: Unremarkable. Normal range of motion, no swollen or erythematous joints Extremities: No edema, no cyanosis, no clubbing. Skin: Erythematous changes and skin breakdown on left hip and gluteal region ( healing well, no evidence of Zoster noted) Neurological: Grossly motor/neurologically intact, has generalized weakness, Normal Speech, Sensation Intact Lymphatic: Lymph nodes Cervical and Axillary not palpable. Test 10/27/16 19:32 10/27/16 23:00 10/28/16 00:45 10/29/16 09:06 Lactic Acid Level 1.1mmol/L (0.4-2.0) Troponin T < 0.010ug/L (0.0-0.011) [place] Level 1.2mEq/L (0.5-1.5) Hold Lehman Top Tube Received (Received) Urine Color Yellow (YELLOW) Urine Appearance Clear (CLEAR,HAZY) Urine pH 6.5 (5.0-8.0) Urine Specific [place] 1.010 (1.003-1.035) Urine Protein Negativemg/dL (NEG,TRACE) Urine Glucose (UA) Negativemg/dL (NEGATIVE) Urine Ketones Negativemg/dL (NEGATIVE) Urine Occult Blood Negative (NEGATIVE) Urine Nitrite Negative (NEGATIVE) Urine Bilirubin Negative (NEGATIVE) Urine Urobilinogen Normalmg/dL (NORMAL) Urine Leukocyte Esterase Negative (NEGATIVE) Urine RBC 0-2/hpf (0-2) Urine WBC 0-5/hpf (0-5) Urine Epithelial Cells Occasional/hpf (NONE-MOD) Urine Crystals None seen (NONE SEEN) Urine Bacteria None/hpf (NONE-FEW) Urine Hyaline Casts None/lpf (NONE) Urine Granular Casts None seen (NONE SEEN) Urine Waxy Casts None seen (NONE SEEN) Urine Red Blood Cell Casts None seen (NONE SEEN) Urine White Blood Cell Casts None seen (NONE SEEN) Urine Mucus None seen (None Seen) Urine Trichomonas None seen (NONE SEEN) Urine Yeast None (NONE SEEN) Urinalysis Comment None Urine Culture Reflexed Not indicated Procalcitonin 0.20ng/mL (0.00-0.08) Test 10/30/16 09:44 White Blood Count 7.8th/mm3 (3.8-10.1) Red Blood Count 3.81mil/mm3 (4.40-5.80) Hemoglobin 12.8g/dL (13.8-17.2) Hematocrit 40.9% (41.0-50.0) Mean Corpuscular Volume 107.3fL (81-100) Mean Corpuscular Hemoglobin 33.6pg (27.0-35.0) Mean Corpuscular Hemoglobin Concent 31.3% (32.0-37.0) Red Cell Distribution Width 12.6% (12.3-15.4) Platelet Count 214bil/L (150-400) Neutrophils (%) (Auto) 71.2% (40-74) Lymphocytes (%) (Auto) 14.6% (14-46) Monocytes (%) (Auto) 6.8% (4-12) Eosinophils (%) (Auto) 6.5% (0-5) Basophils (%) (Auto) 0.8% (0-3) Discharge Medications Discharge Medications Amiloride (Amiloride) 5 Mg Tablet 5 MG PO DAILY Prescribed by: JUANITA ASTORGA DO Calcitonin [place] (Miacalcin) 30 [place]/3.7 Ml Nasalspr 1 SPRAY NA DAILY ( Reported) [place] in 1 Nostril (Alternating Nostrils) Daily Cinacalcet (Sensipar) 30 Mg Tablet 30 MG PO DAILY Prescribed by: JUANITA ASTORGA DO Citalopram Hydrobromide (Celexa) 20 Mg Tablet 20 MG PO DAILY Prescribed by: SHELDON SIMMONS MD Donepezil (Aricept) 5 Mg Tablet 5 MG PO HS Prescribed by: SHELDON SIMMONS MD Finasteride (Finasteride) 5 Mg Tablet 5 MG PO DAILY Prescribed by: SHELDON SIMMONS MD Lactobacillus Acidophilus (Acidophilus Lactobacillus) 1 Each Capsule 2 EACH PO BID (Reported) Pandora Carbonate (Pandora Carbonate) 300 Mg Cap 300 MG PO DAILY Prescribed by: SHELDON SIMMONS MD Tamsulosin (Flomax) 0.4 Mg Capsule 0.4 MG PO HS (Reported) As needed Acetaminophen (Acetaminophen) 325 Mg Capsule 650 MG PO Q4H PRN PRN For Pain ( Reported) Clonazepam (Clonazepam) 0.5 Mg Tablet 0.5 MG PO BID PRN PRN For Anxiety or Agitation Prescribed by: SHELDON SIMMONS MD Tramadol (Tramadol) 50 Mg Tablet 50 MG PO QID PRN PRN For Pain (Reported) Followup Plan Disposition: [facility] Follow-up plan Please follow-up with PCP at [facility] facility in one week Discharge Diet: Low fat, Low Sodium Discharge Activity: Limited until seen by PCP Patient Instructions You were hospitalized due to acute kidney injury with hyperkalemia/high potassium due to dehydration due to poor oral intake. Hyperkalemia and acute kidney injury resolved with IV fluids. Please keep yourself hydrated.You were started on valacyclovir for suspected zoster skin rash at the back. Lesion is early pressure ulcer thus discontinued valacyclovir. Follow-up with PCP in: 1 week Time spent 40 minutes coordinating discharge copies to: Lina Mcrae MD, Melaku MD Oct 30, 2016 10:34
--- NOTE | 2016-10-30 10:49 | NUR ---
social Work:Discharge Data & Assessment: Relationship Advisor spoke with Laila at [facility] and she stated that the patient was able to return. SW call patient's son, Nathaniel Mazariegos, and left a voicemail notifying him that the patient could discharge back to [facility] today via [facility]. Laila with [facility] scheduled cabulence to pick the patient up. SW will continue to follow. Plan: Patient will discharge to [facility] via [facility]. SEVERO will continue to follow. Efrain Dunlap LMSW, [facility] Addendum: 10/30/16 at 1111 by EFRAIN DUNLAP SEVERO spoke with patient's son Nathaniel Ware who is in agreement with patient discharging back to [facility].
--- NOTE | 2016-10-30 10:56 | NUR ---
Student Nurse Pt. was awake alert and oriented x2, calm and cooperative. Repositioned and ate full breakfast. Advised and assisted pt. on oral intake of fluids. Patient resting comfortably and making needs known with call light. Bed locked and low, call light in reach. Discharge this afternoon.
[2016-10-30 10:59] LABS: Magnesium 2.1 mg/dL (1.6-2.6)
== END 2016-10-30 11:15 | DRG 683 ==
LOC: SED 18:42 → MPC 10-28 00:37
PROVIDERS: ADMIT Hospitalist; ATTEND Hospitalist
DX: N17.9 Acute kidney failure, unspecified (principal); E87.2 Acidosis; N25.89 Other disorders resulting from impaired renal tubular function; E86.0 Dehydration; R41.0 Disorientation, unspecified; N18.9 Chronic kidney disease, unspecified; E87.5 Hyperkalemia; N25.1 Nephrogenic diabetes insipidus; I95.9 Hypotension, unspecified; L89.329 Pressure ulcer of left buttock, unspecified stage; E83.52 Hypercalcemia; G30.9 Alzheimer's disease, unspecified

== ENCOUNTER 2016-11-17 15:12 | Emergency (ER) | payer MEDICARE ==
[~2016-11-17] VITALS: Ht 175.3 cm; Wt 60.0 kg
[~2016-11-17 15:12] MED LIST changes: -CEPH500T PO; +CLC200SP2; +LACT1CAP44 PO; -TAMS0.4C29 PO; +TAMS0.4C98 PO; +TRAM50TA2 PO
[2016-11-17 15:24] VITALS: BP 101/59; PULSE 79; RESP 16; O2SAT 99
[2016-11-17 16:09] LABS: BASOPHILS % (AUTO) 0.8 % (0-3); MONOCYTES % (AUTO) 9.6 % (4-12); Mean Corpuscular Hemoglobin 33.3 pg (27.0-35.0); Mean Corpuscular Volume 102.5 fL (81-100); NEUTROPHILS % (AUTO) 64.7 % (40-74); Platelet Count 272 bil/L (150-400)
--- NOTE | 2016-11-17 16:15 | ED.REPORT ---
HPI-Altered Mental Status Date of Service November 17, 2016 ED Provider: Eleuterio Mcelroy MD The patient is a 76 year old male with history or bipolar disorder on lithium, Alzheimer's disease, coronary artery disease, pulmonary embolism, and hypertension, who was brought to the emergency department by EMS from [facility] for change in mental status. Per staff when the patient was asked how he felt he stated, "horrible, everything is wrong, I might as well just put a gun to the back of my head and finish it." The patient states, "If I have a chance to get out of [facility] I am going to take my first chance and walk in front of a bus." The patient feels like he is being mistreated at [facility]. He is upset because he keeps getting moved to different rooms. The patient refused to take his lithium today. He denies fever, chills, nausea, vomiting, diarrhea, abdominal pain or cough. He denies recent falls or injuries. Nursing Notes Stated Complaint: ALTERED MENTAL STATUS Chief Complaint: General Complaint Nursing Notes Reviewed: Yes Allergies: Coded Allergies: hydrocodone (Verified Allergy, Unknown, 09/24/16) Scheduled Amiloride (Amiloride) 5 Mg Tablet 5 MG PO DAILY [place]citonin [place] (Miacalcin) 30 [place]/3.7 Ml Nasalspr 1 SPRAY NA DAILY [place] in 1 Nostril (Alternating Nostrils) Daily Cinacalcet (Sensipar) 30 Mg Tablet 30 MG PO DAILY Citalopram Hydrobromide (Celexa) 20 Mg Tablet 20 MG PO DAILY Donepezil (Aricept) 5 Mg Tablet 5 MG PO HS Finasteride (Finasteride) 5 Mg Tablet 5 MG PO DAILY Lactobacillus Acidophilus (Acidophilus Lactobacillus) 1 Each Capsule 2 EACH PO BID [place] Carbonate ([place] Carbonate) 300 Mg Cap 300 MG PO DAILY Tamsulosin (Flomax) 0.4 Mg Capsule 0.4 MG PO HS Scheduled PRN Acetaminophen (Acetaminophen) 325 Mg Capsule 650 MG PO Q4H PRN PRN For Pain Clonazepam (Clonazepam) 0.5 Mg Tablet 0.5 MG PO BID PRN PRN For Anxiety or Agitation Tramadol (Tramadol) 50 Mg Tablet 50 MG PO QID PRN PRN For Pain General Time Seen by MD: 16:14 Chief Complaint Other (change in mental status) 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 Symptom Duration: Since onset Progression since Onset: Constant, Gradually worsening Severity: Current: No pain currently Severity: Maximum: No pain Recent Healthcare: No recent hospitalization Similar Sx Previous: No Past Medical History Past Medical History Notes: Nathaniel (son): , Past Medical History 1. Bipolar Disorder 2. Alzheimer's Disease 3. Essential Hypertension 4. Type IV Renal Tubular Acidosis 5. Hypercalcemia 6. Chronic Kidney Disease 7. Nephrogenic diabetes insipidus 8. Benign prostatic hyperplasia 9. Coronary artery disease 10. Pulmonary embolsim Past Surgical History Prostate procedure C-spine surgery Shoulder surgery Multiple colonoscopies Family History Noncontributory Smoking History Former Smoker (quit in 2008) Social History Lives at [facility] Alcohol Use: Denies alcohol use Other Social History: Good social support, Lives in senior care, Local resident Ambulatory Status Independent Review of Systems Constitutional: Denies: Chills, Fever Respiratory: Denies: Non-productive cough, Prod cough, bloody, Prod cough, brown, Prod cough, clear, Prod cough, green, Prod cough, white, Prod cough, yellow GI: Denies: Diarrhea, Nausea, Vomiting Psychiatric: Reports: Change mental status, Suicidal ideation Complete sys rev & neg: except as marked. Physical Exam Initial Vital Signs Vital Signs (First) Date Time Temp Pulse Resp B/P Pulse Ox O2 Delivery O2 Flow Rate FiO2 11/17/16 15:24 36.7 79 16 101/59 99 Room Air Initial VS: Reviewed ENT: Mucous membranes moist, Conjunctiva normal, No scleral icterus Abdomen / GI: Soft, Non-tender, No guarding, No rebound, No distention Lymphatic: No lymphadenopathy Extremities: Vascular intact, Neuro intact, No swelling, No tenderness Skin: Warm, Dry, No cyanosis General/Constitutional: Awake, Alert, Cooperative Head / Eyes: Atraumatic, Normocephalic, PERRL, EOMI, No scleral icterus Neck: Atraumatic, Supple, No meningismus, Full range of motion, No swelling, Non-tender, No midline vertebral tend, No masses, No carotid bruit, Thyroid NL Respiratory / Chest: Atraumatic, Breath sounds NL, Breath sounds = bilat, No respiratory distress, No rales, No rhonchi, No wheezing Cardiovascular: Heart rate NL, Regular rhythm, Heart sounds NL, No gallop, No murmurs, No rubs, Peripheral circulation NL Neurologic: Speech NL, No motor deficits, No sensory deficits Mental Status: Positive: Disoriented to place The patient believes he in [place]. Abnormal Mood/Affect: Positive: Flat affect Cooperative Interpretation & Diagnostics Lab Results Interpretation Result Diagram: 11/17/16 1600 11/17/16 1600 Test 11/17/16 16:00 11/17/16 16:15 11/17/16 19:30 White Blood Count 9.7th/mm3 (3.8-10.1) Red Blood Count 4.44mil/mm3 (4.40-5.80) Hemoglobin 14.8g/dL (13.8-17.2) Hematocrit 45.5% (41.0-50.0) Mean Corpuscular Volume 102.5fL (81-100) Mean Corpuscular Hemoglobin 33.3pg (27.0-35.0) Mean Corpuscular Hemoglobin Concent 32.5% (32.0-37.0) Red Cell Distribution Width 13.2% (12.3-15.4) Platelet Count 272bil/L (150-400) Neutrophils (%) (Auto) 64.7% (40-74) Lymphocytes (%) (Auto) 20.6% (14-46) Monocytes (%) (Auto) 9.6% (4-12) Eosinophils (%) (Auto) 4.0% (0-5) Basophils (%) (Auto) 0.8% (0-3) Sodium Level 130mEq/L (134-144) Potassium Level 4.8mEq/L (3.5-5.2) Chloride Level 96mEq/L (97-108) Carbon Dioxide Level 22mmol/L (18-29) Blood Urea Nitrogen 31mg/dL (8-27) Creatinine 1.70mg/dL (0.76-1.27) Estimat Glomerular Filtration Rate 42mL/min (>59) Glucose Level 90mg/dL (60-99) Calcium Level 11.6mg/dL (8.5-10.1) Total Bilirubin 0.4mg/dL (0.0-1.2) Aspartate Amino Transf (AST/SGOT) 20U/L (0-50) Alanine Aminotransferase (ALT/SGPT) 9U/L (0-44) Alkaline Phosphatase 87U/L (25-160) Total Protein 6.6g/dL (6.4-8.4) Albumin 3.3g/dL (3.4-5.0) [place] Level 0.9mEq/L (0.5-1.5) Urine Color Yellow (YELLOW) Urine Appearance Clear (CLEAR,HAZY) Urine pH 7.5 (5.0-8.0) Urine Specific [place] 1.010 (1.003-1.035) Urine Protein Negativemg/dL (NEG,TRACE) Urine Glucose (UA) Negativemg/dL (NEGATIVE) Urine Ketones Negativemg/dL (NEGATIVE) Urine Occult Blood Trace (NEGATIVE) Urine Nitrite Negative (NEGATIVE) Urine Bilirubin Negative (NEGATIVE) Urine Urobilinogen Normalmg/dL (NORMAL) Urine Leukocyte Esterase Small (NEGATIVE) Urine RBC 3-10/hpf (0-2) Urine WBC 6-10/hpf (0-5) Urine Epithelial Cells Few/hpf (NONE-MOD) Urine Crystals None seen (NONE SEEN) Urine Bacteria Many/hpf (NONE-FEW) Urine Hyaline Casts None/lpf (NONE) Urine Granular Casts None seen (NONE SEEN) Urine Waxy Casts None seen (NONE SEEN) Urine Red Blood Cell Casts None seen (NONE SEEN) Urine White Blood Cell Casts None seen (NONE SEEN) Urine Mucus None seen (None Seen) Urine Trichomonas None seen (NONE SEEN) Urine Yeast None (NONE SEEN) Urinalysis Comment None Urine Culture Reflexed Indicated Re-Eval/Medical Decision 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 Re-Evaluation/Progress #2: Time of Eval: 20:49 Re-Evaluation/Progress Note: Rechecked the patient. Discussed urinalysis results, diagnosis, and plan for discharge. All questions were addressed. Counseled Regarding: Diagnosis, Lab results, Need for follow-up, When/why to return to ED Patient Discharge & Departure Impression: Primary Impression: Urinary tract infection Urinary tract infection type: site unspecified Hematuria presence: without hematuria Qualified Code: N39.0 - Urinary tract infection, site not specified Disposition: Home Discharge Condition All VS Reviewed: Yes Condition: Stable Patient Instructions: Urinary Tract Infection in Men (ED) Additional Instructions: Thank you for entrusting us with your care today. Your urinalysis does show evidence of a urinary tract infection. Take nitrofurantoin twice daily for a week. We have given you your first dose of antibiotics in the emergency department today. You will need to take your next dose tomorrow. Followup with your regular doctor next week for re-evaluation. Seek care for any new or concerning symptoms. Referrals: NOPCP (PCP) Scribe Attestation Portions of this note were transcribed by Tori Preston. I, Dr. Mcelroy personally performed the history, physical exam and medical decision-making; I reviewed and confirmed the accuracy of the information in the transcribed note. Signed by: Joanna Frank, 11/17/2016 at 2100. Eleuterio Mcelroy MD November 17, 2016 16:15 Tori Preston November 17, 2016 16:22
[2016-11-17] MEDS ORDERED: 0.9% Sodium Chloride 1,000 ML IV ONE ×2 (16:40→18:20)
[2016-11-17 16:48] VITALS: BP 117/68; PULSE 77; RESP 14; O2SAT 97
[2016-11-17 19:59] VITALS: BP 137/80; PULSE 80; RESP 16; O2SAT 97
[2016-11-17 20:26] LABS: APPEARANCE,URINE CLEAR (CLEAR,HAZY); COLOR,URINE YELLOW (YELLOW); OCCULT BLOOD,URINE TRACE (NEGATIVE); PH,URINE 7.5 (5.0-8.0); UROBILINOGEN,URINE NORMAL (NORMAL)
[2016-11-17] MEDS ORDERED: Nitrofurantoin Monohyd-Macrocryst 100 mg Capsule PO ONE (20:50)
[2016-11-17] MEDS ORDERED: NITR100 PO (20:55)
[2016-11-17 22:10] VITALS: BP 128/64; PULSE 72; RESP 16; O2SAT 98
== END 2016-11-17 22:00 | disposition home or self-care (01) ==
LOC: SED 15:12 → EDBD 15:12 → SED 22:00
DX: N39.0 Urinary tract infection, site not specified (principal); B95.2 Enterococcus as the cause of diseases classified elsewhere; I13.10 Hypertensive heart and chronic kidney disease without heart failure, with stage 1 through stage 4 chronic kidney disease, or unspecified chronic kidney disease; N18.9 Chronic kidney disease, unspecified; N25.1 Nephrogenic diabetes insipidus; I25.10 Atherosclerotic heart disease of native coronary artery without angina pectoris; G30.9 Alzheimer's disease, unspecified; F02.81 Dementia in other diseases classified elsewhere, unspecified severity, with behavioral disturbance; F31.9 Bipolar disorder, unspecified; Z87.891 Personal history of nicotine dependence; Z79.899 Other long term (current) drug therapy; Z88.5 Allergy status to narcotic agent
CPT/HCPCS: 36415; 51701; 51798; 80053; 80178; 81000; 85025; 87077; 87086; 87088; 87186; 96360; 96361; 99285; J7030